=== PATIENT | male | born 1950 | race Caucasian/White ===

== ENCOUNTER 2025-03-04 09:29 | Outpatient (AMB) | payer MEDICARE, SELFPAY ==
--- OUTSIDE RECORDS SUMMARY | 2025-02-27 23:59 | XMS_ITS | Continuity of Care Document ---
Author Organization [facility] Address [address] [place] [address]- Care Team Providers Care Workforce Staffing Advisor Name Role Phone Arturo ABARCA, Justin Hannah Primary Care Physician [place] [facility] [place] 02/27/25 [facility] [address] [place] [address]- Attending Physician: Franny Manley Encounter Type: Pre Office Visit Allergies, Adverse Reactions, Alerts No Known Allergies Immunizations Given and Recorded Vaccine Date Status Refusal Reason SARS-CoV-2(COVID-19)mRNA-LNP vac([id number]) 05/02/23 Recorded [id number] bivalent booster vax 03/31/22 Recorded SARS-CoV-2 (COVID-19) mRNA-1273 vaccine 05/14/21 R ecorded SARS-CoV-2 (COVID-19) mRNA-1273 vaccine 09/27/20 R ecorded SARS-CoV-2 (COVID-19) mRNA-1273 vaccine 08/30/20 R ecorded Medications Albuterol (Eqv-ProAir HFA) 90 mcg/inh inhalation aerosol INHALE 2 PUFFS INTO THE LUNGS EVERY 4 HOURS NEEDED Start Date: 11/23/23 Status: Ordered Repeat number: 1 Eliquis 5 mg oral tablet 1 tablet, By Mouth, 2 times a day, # 180 tablet, 3 Refills, Maintenance, 09/09/24 4:19:00 PM EST, [id number], 180.34, cm, 07/25/24 14:02:00 EST, Height, 94, kg, 02/09/24 7:50:00 EDT, Dry Weight Start Date: 09/09/24 Status: Ordered Quantity: 180.0 Unit: tablet Repeat number: 1 Farxiga 10 mg oral tablet 1 tablet, By Mouth, Daily, # 90 tablet, 2 Refills, Maintenance, 11/11/24 8:38:00 AM EDT, [id number], 180.34, cm, 07/25/24 14:02:00 EST, Height, 94, kg, 02/09/24 7:50:00 EDT, Dry Weight Start Date: 11/11/24 Status: Ordered Quantity: 90.0 Unit: tablet Repeat number: 1 glucosamine 750 mg oral tablet 2 tablet = 1,500 mg, By Mouth, Daily, # 180 tablet, 0 Refills, Maintenance, 01/10/24 12:09:00 PM EDT, Tablet, Partial fill upon patient request if the prescription is for a schedule II opioid drug. Start Date: 01/10/24 Status: Ordered Quantity: 180.0 Unit: tablet Repeat number: 1 losartan 100 mg oral tablet 1 tablet = 100 mg, By Mouth, Daily, # 30 tablet, 0 Refills, Maintenance, 02/13/24 2:27:00 PM EDT, Tablet, Partial fill upon patient request if the prescription is for a schedule II opioid drug. Start Date: 02/13/24 Status: Ordered Quantity: 30.0 Unit: tablet Repeat number: 1 pantoprazole 40 mg oral delayed release tablet TAKE 1 TABLET TWICE A DAY BY ORAL ROUTE FOR 90 DAYS. Start Date: 01/03/24 Status: Ordered Repeat number: 1 spironolactone 25 mg oral tablet 0.5, tablet, By Mouth, Daily, # 45 tablet, Refills 10, Maintenance, 11/04/24 11:21:00 AM EDT, Route to Pharmacy Electronically, [id number], 180.34, cm, 07/25/24 14:02:00 EST, Height, 94, kg, 02/09/24 7:50:00 EDT, Dry Weight Start Date: 11/04/24 Status: Ordered Quantity: 45.0 Unit: tablet Repeat number: 1 tamsulosin 0.4 mg oral capsule 0.4 mg, 1, capsule, By Mouth, Daily, # 30 capsule, Refills 0, Maintenance, 03/24/22 1:36:00 PM EDT, Partial fill upon patient request if the prescription is for a schedule II opioid drug. Start Date: 03/24/22 Status: Ordered Quantity: 30.0 Unit: capsule Repeat number: 1 Tylenol 8 HR Arthritis Pain 650 mg oral tablet, extended release 2 tablet = 1,300 mg, By Mouth, Every 8 hours, PRN as needed for pain, # 50 tablet, 0 Refills, Maintenance, 01/10/24 12:10:00 PM EDT, ER Tablet, Partial fill upon patient request if the prescription isfor a schedule II opioid drug. Start Date: 01/10/24 Status: Ordered Quantity: 50.0 Unit: tablet Repeat number: 1 Problem List Condition Confirmation Course Effective Dates Status Health St atus Informant Atrial fibrillation with RVR Confirmed Active Maldonado esophagus Confirmed Active Chronic low back pain Confirmed Active Chronic systolic congestive heart failure Confirmed Active Primary hypertension Confirmed Active GERD (gastroesophageal reflux disease) Confirmed Active Urinary frequency Confirmed Active SVT (supraventricular tachycardia) Confirmed Active Tear of medial meniscus of left knee Confirmed Active Social History Social History Type Response Smoking Status Never (less than 100 in lifetime) entered on: 12/12/23 Sex Sex Representation Male (finding) Patient Care team information Care Team Personnel Name: Pauline Mora RN Position: [facility] RN Member Role: Primary Care Nurse Name: Luann Aguilar RN Position: [facility] RN Member Role: Primary Care Nurse Name: Daysi Moody RN Position: [facility] RN Member Role: Primary Care Nurse Name: Justin Morris MD Position: [facility] Outreach Member Role: PCP Address: [address] [place] [address] Telecom: Name: Monique Giron NP Position: [facility] Associate Professional Member Role: Lifetime Consulting Provider Address: [address] [place], [place] [address] [address] Telecom: Name: Florentin Mclain MD Position: [facility] Renal MD Member Role: Lifetime Consulting Physician Address: [address] [place], [place] [address] [facility] [address] Telecom: Name: Kay Mckeon RN Position: [facility] RN Member Role: Primary Care Nurse Name: Steffi Sarabia RN Position: [facility] RN Member Role: Primary Care Nurse Name: Yusuf Kimball DO Position: [facility] Renal MD Member Role: Lifetime Consulting Physician Address: [address] [place], [place] [address]E [facility] [place] [address]- Telecom: Name: Delores Garcia RN Position: [facility] RN Member Role: Primary Care Nurse Name: Ana Delarosa RN Position: [facility] RN Member Role: Primary Care Nurse Name: Krista Snyder RN Position: [facility] RN Member Role: Primary Care Nurse Name: Christine Ricketts RN Position: [facility] RN Member Role: Primary Care Nurse Name: Enrico Brwon RN Position: [facility] RN Member Role: Primary Care Nurse Name: Luis Reyes RN Position: [facility] RN Member Role: Primary Care Nurse Name: Janessa Oh RN Position: [facility] DARWIN RN W/OE and Tasks Member Role: Primary Care Nurse Care Team Related Persons Name: MARC TILLMAN Name: MARC ALMARAZ Insurance Providers Guarantor name: JENSEN OSWALD Health Plan Information #: 1 Payer: MEDICARE B Payer Identifier: ISHAAN Member Number: [id number] Group Number: Subscriber Identifier: [id number] Relationship to Subscriber: self Coverage Type: NA Coverage Verification Date: Telecom: Address: [facility] Information #: 2 Payer: [employer] Payer Identifier: ISHAAN Member Number: [id number] Group Number: Subscriber Identifier: [id number] Relationship to Subscriber: self Coverage Type: Medicare Managed Care (Includes Medicare Advantage Plans) Coverage Verification Date: Telecom: Address:
--- NOTE | 2025-03-04 09:31 | A.OFFVIS_ITS ---
Vital Signs 03/04/25 09:33 Height 5 ft 10.5 in Weight 216 lb 8 oz BMI 30.6 BP 132/84 Blood Pressure Location Lt brachial Position Sitting Pulse 64 Pulse Source Pulse Oximeter Pulse Oximetry (%) 94 Oxygen Delivery Method Room Air Intake Visit Reasons: chronic cough Allergies No Known Allergies Allergy (Verified 03/04/25 09:36) HPI HPI chronic cough: Details: Zia is a pleasant 75 year old male, never smoker, with underlying CHF, Afib on Eliquis, GERD and SVT. He was referred by PCP for pulmonary evaluation for chronic cough and associated respiratory symptoms. The cough has been a persistent issue, particularly during the winter months when the patient experiences increased phlegm production and postnasal drip. Often resulting in sinusitis and bronchitis. The symptoms tend to resolve in the spring and summer, often requiring abx and steroids. At this time he denies any respiratory symptoms other than intermittent dyspnea which he attributes to cardiac etiologies. CXR 11/2024 revealed low lung volumes otherwise unremarkable. The patient has been managing the symptoms with antihistamines and nasal spray, which have provided some relief. He is scheduled to see an ENT specialist for a procedure to address his narrow eustachian tubes, which may contribute to his prolonged respiratory symptoms during colds. The patient also has a history of atrial fibrillation, for which he is on Eliquis and has undergone ablation therapy. He is scheduled for another ablation in three weeks due to recurrent episodes of atrial fibrillation. The patient reports a history of allergic rhinitis, particularly sensitive to leaf mold, which exacerbates his symptoms in the fall. He has not undergone recent allergy testing. The patient has a history of gastroesophageal reflux disease, managed with pantoprazole, which is well- controlled. He also has lumbar spinal stenosis, which limits his physical activity and is scheduled for a mild procedure next week. He denies h/o asthma/COPD. 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 [facility] Social History (Updated 03/04/25 @ 09:36 by Kaelyn Brandon [facility]) Patient Tobacco Use Status: Never used Tobacco Review of Systems Const Denies chills, Denies excessive sweating, Denies fever(s), Denies headache(s) and Denies night sweats Eyes Denies dry eyes, Denies irritation and Denies itchy eyes ENT Reports Normal hearing present, Denies headache(s), Denies nasal congestion, Denies nasal discharge, Denies post nasal drip and Denies sore throat Card Denies chest pain, Denies chest pain at rest, Denies chest pain with activity, Denies claudication, Denies leg edema, Denies dyspnea, Denies dyspnea on exertion, Denies orthopnea and Denies paroxysmal nocturnal dyspnea Resp Denies chest congestion, Denies cough, Denies excessive phlegm production, Denies pain on inspiration, Denies pain with cough, Denies dyspnea, Denies dyspnea on exertion, Denies stridor and Denies wheezing Musc Denies myalgias Neuro Reports Normal hearing present and Denies headache(s) Endo Denies excessive sweating Zi/Lymph Denies lymphadenopathy Aller/Immun Denies itchy eyes, Denies seasonal rhinorrhea and Denies wheezing Physical Exam Vital Signs: Last Vital Signs Pulse 64 03/04/25 09:33 BP 132/84 03/04/25 09:33 Pulse Ox 94 03/04/25 09:33 Oxygen Delivery Method Room Air 03/04/25 09:33 BMI result Body Mass Index 30.6 Const General: cooperative, healthy appearing, comfortable, no acute distress, well developed and alert Nutritional Appearance: obese Orientation/consciousness: patient oriented x3 Limitations: no limitations HEENT Head: Yes normal to inspection, Yes normocephalic and Yes atraumatic Ears: hearing grossly normal bilaterally and external ears normal Eyes General: appearance normal, both eyes and all related structures Eyelids: Yes eyelids normal Sclerae: sclerae normal EOM: EOMs intact bilaterally Neck Neck: Yes normal visual inspection and Yes no lymphadenopathy Lymphatic: no lymphadenopathy noted Chest Chest palpation & inspection: normal inspection of the chest Resp Effort & Inspection: normal respiratory effort, able to speak in complete sentences, no audible wheezes, no cough, no stridor, not tachypneic, no tripod positioning and no use of accessory muscles Auscultation: clear to auscultation bilaterally Cardio Jugular venous distension: no JVD Rate: regular rate Skin Other: warm, dry General skin exam: no rashes or lesions noted Neuro General: patient oriented x3 Cranial nerves: Yes Normal hearing present Cognition (Neuro): normal cognition Gait exam (Neuro): Normal gait present Extrem General: Yes normal to inspection, Yes capillary refill normal, Yes no clubbing, cyanosis or edema and Yes no pedal edema Psych Appearance: grossly normal and well kempt Speech and movement: Normal speech and movement present and Clear speech present Affect: normal affect Attitude: cooperative Thought process: Normal thought process present Thought content: Normal thought content present Insight: Good insight present (Psych) Judgement: Good judgement present (Psych) Assessment & Plan Assessment & Plan (1) Chronic cough: Code(s): R05.3 - Chronic cough Category: Medical (2) Allergic rhinitis: Code(s): J30.9 - Allergic rhinitis, unspecified Category: Medical Plan The plan includes scheduling a pulmonary function test to assess for possible as thma or reactive airway disease. The patient is advised to continue using antihistamines and nasal spray to manage symptoms and to follow up with the ENT. All questions were answered and patient is in agreement of plan. Will follow up in 6-8 weeks or sooner if needed. Orders: Orders PFT pulmonary function test Today R05.3 - Chronic cough Coding Level of Care Code New Pt Level 4 (21068) Diagnoses Chronic cough R05.3 Allergic rhinitis J30.9
[2025-03-04 09:33] VITALS: BP 132/84; PULSE 64; O2SAT 94; BMI 30.6
--- OUTSIDE RECORDS SUMMARY | 2025-03-04 10:33 | XMS_ITS | Encounter Summary ---
Author Organization [facility] Address [address] [place] [address] Care Team Providers Care Fire Prevention Specialist Name Role Phone Justin Morris MD Primary Care Provider [phone] Diogenes Cai MD Unavailable [phone] Encounter Details Date Type Department Care Team (Late st Contact Info) Description 02/27/2025 Scanned Document [facility] [address] [place] [address] Jevon Vo MD [address] [place] [address] Social History Tobacco Use Types Packs/Day Years Used Date Smoking Tobacco: Never Passive Smoke Exposure: Never Smokeless Tobacco: Never Alcohol Use Standard Drinks/Week Comments Yes 0 (1 standard drink = 0.6 oz pur e alcohol) Sex and Gender Information Value Date Recorded Sex Assigned at Not on file Legal Sex Male 4:00 PM EDT Gender Identity Not on file Sexual Orientation Not on file documented as of this encounter Plan of Treatment Upcoming Encounters Date Type Department Care Team (Late st Contact Info) Description 03/05/2025 1:45 PM EDT Procedure visit [facility] [address] [facility] [place] [address] Jevon Vo MD [address] [place] [address] 03/27/2025 10:45 AM EDT Office Visit [facility] [place] [address] [facility] [place] [address] Jevon Vo MD [address] [place] [address] documented as of this encounter Visit Diagnoses Not on filedocumented in this encounter Care Teams Fire Prevention Specialist Relationship Specialty Start Date End Date Justin Morris MD [address] [address] PCP - General Internal Medicine 06/25/24 Diogenes Cai MD [address] [facility] [address] [place] [address] Internal Medicine 02/21/25 documented as of this encounter
--- OUTSIDE RECORDS SUMMARY | 2025-03-04 10:33 | XMS_ITS | Clinical Summary ---
Author Organization [facility] Address [address] [place] [address] Care Team Providers Care Disaster Recovery Analyst Name Role Phone Justin Mroris MD Primary Care Provider [phone] Allergies No known active allergies Medications celecoxib (CeleBREX) 200 mg capsule Take 200 mg by mouth 1 (one) time each day. Active tamsulosin (FLOMAX) 0.4 mg 24 hr capsule Take 0.4 mg by mouth 1 (one) time each day. 12/23/2019 Active losartan (COZAAR) 100 mg tablet Take 100 mg by mouth 1 (one) time each day. Active Active Problems Problem Noted Date Diagnosed Date SBO (small bowel obstruction) 02/18/2020 Family History Medical History Relation Name Comments Alcohol abuse Father Aortic aneurysm Father Heart failure Mother Relation Name Status Comments Father Mother Social History Tobacco Use Types Packs/Day Years Used Date Smoking Tobacco: Never Smokeless Tobacco: Never Alcohol Use Standard Drinks/Week Comments Yes 0 (1 standard drink = 0.6 oz pure alcohol) drinks 1 vodka soda and 1 glass of wine a night AUDIT-C Answer Date Recorded Q1: How often do you have a drink containing alcohol? 4 or more times a week 02/19/2020 Average Number of Drinks Not on file 020 Frequency of Binge Drinking Not on file 11/2019 Sex and Gender Information Value Date Recorded Sex Assigned at Not on file Legal Sex Male 5:57 PM EDT Gender Identity Not on file Sexual Orientation Not on file Last Filed Vital Signs Vital Sign Reading Time Taken Comments Blood Pressure 124/58 02/21/2020 7:29 AM EDT Pulse 62 02/21/2020 7:29 AM EDT Temperature 37.3 C (99.2 F) 02/21/2020 7:29 AM EDT Respiratory Rate 14 02/21/2020 7:29 AM EDT Oxygen Saturation 96% 02/21/2020 7:29 AM EDT Inhaled Oxygen Concentration - - Weight 95.3 kg (210 lb 1.6 oz) 02/21/2020 5:00 A M EDT Height 182.9 cm (6') 02/18/2020 7:47 PM EDT Body Mass Index 28.49 02/18/2020 7:47 PM EDT Plan of Treatment Health Maintenance Due Date Last Done Comments CT Colonography 1950 Colonoscopy 1950 Colorectal Cancer Screening 1950 FIT-DNA 1950 FIT 1950 FOBT 1950 Sigmoidoscopy 1950 Medicare Annual Wellness Visit 02/21/1968 Tdap and Td Vaccines Adult 1969 Pneumococcal Vaccine: 50+ Years (1 of 1 - PCV) 02/21/2000 Zoster Vaccines (1 of 2) 02/21/2000 Fall Risk Screening 2015 COVID-19 Vaccine ( season) 2024 05/02/2023, 05/14/2021, 09/27/2020, Additional history exists RSV 60+ (1 - 1-dose 75+ series) 2025 Influenza Vaccine (#1) 2025 HIB Vaccines Aged Out No longer eligi ble based on patient's age to complete this topic HPV Vaccines (No Doses Required) Completed Hepatitis A Vaccines Aged Out No long er eligible based on patient's age to complete this topic IPV Vaccines Aged Out No longer eligi ble based on patient's age to complete this topic Meningococcal Vaccine Aged Out No chema vern eligible based on patient's age to complete this topic RSV <20 Months Aged Out No longer vinnie gible based on patient's age to complete this topic Insurance MEDICARE [employer] Care Teams Disaster Recovery Analyst Relationship Specialty Start Date End Date Justin Morris MD [address] [address] PCP - General 02/18/20
--- OUTSIDE RECORDS SUMMARY | 2025-03-04 10:33 | XMS_ITS ---
Author Name [facility] Organization Unknown History of Medication Use Medication Directions Dispensed Refills Start Date End Date Stat us doxycycline (VIBRAMYCIN) 100 MG capsule Take 1 capsule (100 mg total) by mouth 2 (two) times a day. 11/13/2024 active proMETHAZINE-dextrom ethorphan (proMETHAZINE-DM) 6.25-15 MG/5ML syrup Take 5 mL by mouth 4 times daily (every 6 hours) as needed for cough. 11/13/2024 active doxycycline (ADOXA) 100 MG tablet Take 1 tablet (100 mg total) by mouth every 12 (twelve) hours around the clock. 06/25/2024 07/10/2024 active Farxiga 10 MG tablet Take 10 mg by mouth. active losartan (COZAAR) 100 MG tablet Take 100 mg by mouth. active PANTOprazole (PROTONIX) 40 MG EC tablet TAKE 1 TABLET TWICE A DAY BY ORAL ROUTE FOR 90 DAYS. active Problems Problem Status Onset Date Problem Type Date of Resoluti on Source GERD (gastroesophageal reflux disease) active 2024-06-25 [facility]Act [facility] SVT (supraventricular tachycardia) active 2024-06-25 ProblemAct [facility] SBO (small bowel obstruction) active 2020-02-18 ProblemAct [facility] Atrial fibrillation with RVR active 2024-06-25 ProblemAct [facility] Tear of medial meniscus of left knee active 2024-06-25 ProblemAct [facility] Increased frequency of urination active 2024-06-25 ProblemAct [facility] Hypertension active 2024-06-25 ProblemAct [facility] Chronic low back pain active 2024-06-25 ProblemAct [facility] Maldonado esophagus active 2024-06-25 ProblemAct [facility] Encounters Encounter Type Encounter Reason Primary Diagnosis Location Date Ambulatory Ear Fullness Ear Fullness [facility] 12/30/2024 Ambulatory Cough Cough [facility] 11/13/2024 Ambulatory Post Nasal Drip [facility] 08/08/2024 Ambulatory Post Nasal Drip [facility] 06/25/2024 Care Team Organization Name Specialty Phone Email Start Date End Da te [facility] Primary Care 11/14/202401/14 [facility] 06/28/2024 01/28/2025 [facility] 06/25/2024 [facility] 06/03/2024
--- OUTSIDE RECORDS SUMMARY | 2025-03-04 10:33 | XMS_ITS | Clinical Summary ---
Author Organization [place] [address] [place] [address] Address [address] [facility] [place] [address] Care Team Providers Care Hand Icer Name Role Phone Unavailable Primary Care Provider Unavailabl e Allergies No known active allergies Medications pantoprazole (PROTONIX) 40 mg tablet TAKE 1 TABLET TWICE A DAY BY ORAL ROUTE FOR 90 DAYS. 01/03/2024 Active losartan (COZAAR) 100 mg tablet Take 1 tablet (100 mg total) by mouth daily. Active FARXIGA 10 mg tablet Take 1 tablet (10 mg total) by mouth daily. Active amiodarone (PACERONE) 200 mg tablet Take 1 tablet (200 mg total) by mouth. 01/15/2024 Active acetaminophen (TYLENOL ARTHRITIS PAIN) 650 mg CR tablet Take 2 tablets (1,300 mg total) by mouth. 01/10/2024 Active ELIQUIS 5 mg Tab tablet Take 1 tablet (5 mg total) by mouth 2 (two) times daily. Active fluticasone propionate (FLONASE) 50 mcg/actuation nasal sprayIndications :Acute non-recurrent sinusitis, unspecified location Use 1 spray in each nostril daily. 16 g 11 02/19/2024 Active Social History Tobacco Use Types Packs/Day Years Used Date Smoking Tobacco: Never Smokeless Tobacco: Never Tobacco Cessation:Counseling Given: Not Answered Alcohol Use Standard Drinks/Week Comments Yes 0 (1 standard drink = 0.6 oz pur e alcohol) socially Sex and Gender Information Value Date Recorded Sex Assigned at Not on file Legal Sex Male 3:29 PM EDT Gender Identity Not on file Sexual Orientation Not on file Last Filed Vital Signs Vital Sign Reading Time Taken Comments Blood Pressure 128/84 02/19/2024 4:07 PM EDT Pulse 87 02/19/2024 4:07 PM EDT Temperature 36.9 C (98.4 F) 02/19/2024 4:07 PM EDT Respiratory Rate - - Oxygen Saturation 96% 02/19/2024 4:07 PM EDT Inhaled Oxygen Concentration - - Weight 93 kg (205 lb) 02/19/2024 4:07 PM EDT Height - - Body Mass Index - - Plan of Treatment Health Maintenance Due Date Last Done Comments HIV screening 1963 Hepatitis C screening 02/21/1968 Tetanus adult (Td q 10,TDAP once) 1970 Lipid disorder screening 1990 Colon cancer screening, Colonoscopy 1995 Diabetes screening 1995 Pneumococcal Vaccine (50+ years) (1 of 1 - PCV) 02/21/2000 Shingles vaccine (Shingrix) (1 of 2 - Shingrix (RZV) 2 Dose Standard Series) 02/21/2000 Covid-19 vaccine series ( season) 2024 05/02/2023, 05/14/2021, 09/27/2020, Additional history exists RSV Immunization (1 - 1-dose 75+ series) 2025 Influenza vaccine 03/17/2025 Meningococcal Vaccine Aged Out No chema vern eligible based on patient's age to complete this topic Insurance [facility] MEDICARE COMMERCIAL GENERIC [facility] MEDICARE COMMERCIAL GENERIC [facility] MED[facility] COMMERCIAL GENERIC
--- OUTSIDE RECORDS SUMMARY | 2025-03-04 10:33 | XMS_ITS | Clinical Summary ---
Author Organization [facility] Facility Address [address] [address] Care Team Providers Care Afterschool Babysitter Name Role Phone Unavailable Primary Care Provider Unavailabl e Social History Tobacco Use Types Packs/Day Years Used Date Smoking Tobacco: Never Assessed Sex and Gender Information Value Date Recorded Sex Assigned at Not on file Legal Sex Male 5:21 PM EST Gender Identity Not on file Sexual Orientation Not on file Plan of Treatment Health Maintenance Due Date Last Done Comments Colorectal Cancer Screening: Annual FOBT 1999 Colorectal Cancer Screening: Colonoscopy 1999 Colorectal Cancer Screening: Sigmoidoscopy 1999 Influenza Vaccine (#1) 2025 , 03/17/2020, 05/02/2019, Additional history exists Pneumococcal Vaccine: 50+ Years Completed 01/25/2017, 06/15/2015 Pneumococcal Vaccine: Peds (0 to 5 Years) and At-Risk Patients (6 to 49 Years) Discontinued 01/25/2017, 06/15/2015 Hepatitis B Vaccine Aged Out No longe r eligible based on patient's age to complete this topic Insurance Medicare [facility]
== END 2025-03-04 10:04 | disposition home or self-care (01) ==
LOC: HO.HPSW 09:30
PROVIDERS: Family Provider Internal Medicine; PCP Internal Medicine; Visit Provider Nurse Practitioner Family
DX: R05.3 Chronic cough (principal); J30.9 Allergic rhinitis, unspecified
CPT/HCPCS: 99204

== ENCOUNTER → 2025-03-04 09:29 | Outpatient (BNVA) | payer MEDICARE, SELFPAY | PROVIDERS: Family Provider Internal Medicine; PCP Internal Medicine; Visit Provider Nurse Practitioner Family | DX: R05.3 Chronic cough (principal); J30.9 Allergic rhinitis, unspecified | CPT/HCPCS: 99202 ==

== ENCOUNTER 2025-05-15 10:37 | Outpatient (REF) | payer MEDICARE, SELFPAY ==
--- NOTE | 2025-05-15 10:49 | PFT_ITS ---
Flows: FEV1: 90 % of predicted at 2.73 L FVC: 107 % of predicted at 4.33 L FEV1/FVC: 63 % Bronchodilator response: Absent Volumes: Total lung capacity: 85 % of predicted at 6.04 L Residual volume: 61 % of predicted at 1.62 L Slow vital capacity: 103 % of predicted at 4.42 L Expiratory reserve volume: 36 % of predicted at 0.45 L Diffusion capacity: Normal Impression: No obstructive or restrictive ventilatory defect. No bronchodilator response. Decreased expiratory reserve volume suggests extrathoracic restriction likely secondary to abdominal obesity. MTDD
[2025-05-15 11:36] VITALS: PULSE 82
--- OUTSIDE RECORDS SUMMARY | 2025-05-15 13:04 | XMS_ITS | Encounter Summary ---
Author Organization [facility] Address [address] [place] [address] Care Team Providers Care Tool And Die Supervisor Name Role Phone Justin Morris MD Primary Care Provider [phone] Encounter Details Date Type Department Care Team (Late st Contact Info) Description 02/18/2020 Procedure Pass [facility] Radiology, [facility] ([place] Scan) [address] [place] [address] Social History Tobacco Use Types Packs/Day Years Used Date Smoking Tobacco: Never Smokeless Tobacco: Never AUDIT-C Answer Date Recorded Q1: How often [...] on file Sexual Orientation Not on file COVID-19 Exposure Response Date Recorded In the last month, have you been in contact with someone who was confirmed or suspected to have Coronavirus / COVID-19? No / Unsure 02/18/2020 5:57 PM EDT documented as of this encounter Last Filed Vital Signs Vital Sign Reading Time Taken Comments Blood Pressure - - Pulse - - Temperature - - Respiratory Rate - - Oxygen Saturation - - Inhaled Oxygen Concentration - - Weight 95.3 kg (210 lb) 02/18/2020 7:47 PM EDT Height 182.9 cm (6') 02/18/2020 7:47 PM EDT Body Mass Index 28.48 02/18/2020 7:47 PM EDT documented in this encounter Functional Status documented as of this encounter Plan of Treatment Not on file documented as of this encounter Visit Diagnoses Not on filedocumented in this encounter Care Teams Tool And Die Supervisor Relationship Specialty Start Date End Date Justin Morris MD [address] [address] PCP - General 02/18/20 documented as of this encounter
--- OUTSIDE RECORDS SUMMARY | 2025-05-15 13:04 | XMS_ITS | Clinical Summary ---
Author Organization [employer] Address [address] [place] [address] Care Team Providers Care Web Development Intern Name Role Phone Justin Morris MD Primary Care Provider [phone] Allergies No known active allergies Medications celecoxib [...] of 2) 02/21/2000 Fall Risk Screening 2015 RSV 60+ (1 - 1-dose 75+ series) 2025 COVID-19 Vaccine ( season) 2025 05/02/2023, 05/14/2021, 09/27/2020, Additional history exists Influenza Vaccine (#1) 2025 HIB Vaccines Aged [...] Insurance MEDICARE [facility] Care Teams Web Development Intern Relationship Specialty Start Date End Date Justin Morris MD [address] [address] PCP - General 02/18/20
--- OUTSIDE RECORDS SUMMARY | 2025-05-15 13:04 | XMS_ITS | Clinical Summary ---
Author Organization [place] [address] [place] [address] [place] [address] [place] [address] Care Team Providers Care Wheat Shipper Name Role Phone Unavailable Primary Care Provider [...] Shingrix (RZV) 2 Dose Standard Series) 02/21/2000 Influenza vaccine 02/14/2025 RSV Immunization (1 - 1-dose 75+ series) 2025 Covid-19 vaccine series ( season) 2025 05/02/2023, 05/14/2021, 09/27/2020, Additional history exists Meningococcal B Vaccine Aged Out No l onger eligible based on patient's age to complete this topic Meningococcal Vaccine Aged Out No chema vern eligible based on patient's age to complete this topic Insurance [facility] MEDICARE COMMERCIAL GENERIC [facility] MEDICARE COMMERCIAL GENERIC [facility] MEDICARE COMMERCIAL GENERIC
--- OUTSIDE RECORDS SUMMARY | 2025-05-15 13:04 | XMS_ITS | Clinical Summary ---
Author Organization [facility] Facility Address [address] [address] Care Team Providers Care Manager Business Development Hospice Name Role Phone Unavailable Primary Care Provider [...] age to complete this topic Insurance Medicare [facility]
--- OUTSIDE RECORDS SUMMARY | 2025-05-15 13:05 | XMS_ITS | Clinical Summary ---
Author Organization [facility] Address [address] [place] [address] Care Team Providers Care Practice Architect Name Role Phone Justin Morris MD Primary Care Provider [phone] Diogenes Cai MD Unavailable [phone] Allergies Active Allergy Reactions Criticality Noted Date Comments Amlodipine Other (See Comments) Low 03/27/2025 Medications acetaminophen (TYLENOL) 650 MG CR tablet Take 1,300 mg by mouth. 4 Active amiODARONE (PACERONE) 200 MG tablet Take 200 mg by mouth. 4 Active amLODIPine (NORVASC) 2.5 MG tablet Take 2.5 mg by mouth. Active Eliquis 5 MG tablet Take 5 mg by mouth 2 times a day. Active celeCOXIB (CeleBREX) 200 MG capsule Take 200 mg by mouth. Active Farxiga 10 MG tablet Take 10 mg by mouth. Active fluticasone (FloNASE) 50 mcg/spray nasal spray SPRAY 2 SPRAYS BY INTRANASAL ROUTE EVERY DAY DIRECTED Active losartan (COZAAR) 100 MG tablet Take 100 mg by mouth. Active oxyCODONE (ROXICODONE) 5 MG immediate release tablet Take 5 mg by mouth every 4 (four) hours. 4 Active PANTOprazole (PROTONIX) 40 MG EC tablet TAKE 1 TABLET TWICE A DAY BY ORAL ROUTE FOR 90 DAYS. Active SPIRONOLACTONE PO Take by mouth. 4 Active tamsulosin (FLOMAX) 0.4 MG capsule Take by mouth. 4 Active proMETHAZINE-de xtromethorphan (proMETHAZINE-D M) 6.25-15 MG/5ML syrupIndication s:Acute bacterial bronchitis Take 5 mL by mouth 4 times daily (every 6 hours) as needed for cough. 120 mL 5 Active ipratropium (ATROVENT) 0.03 % nasal sprayIndication s:Post-nasal drip SPRAY 2 SPRAYS INTO EACH NOSTRIL 3 TIMES A DAY. 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 Chronic low back pain 06/25/2024 GERD (gastroesophageal reflux disease) Hypertension 06/25/2024 Increased frequency of urination 06/25/2024 SVT (supraventricular tachycardia) 06/25/2024 Tear of medial meniscus of left knee 06/25/2024 SBO (small bowel obstruction) 02/18/2020 Encounters Date Type Department Care Team Description 03/30/2025 Refill [facility] [address] [address] Jevon Vo MD Post-nasal drip 03/27/2025 10:45 AM EDT Office Visit [facility] [address] [address] Jevon Vo MD Other abnormal auditory perceptions, right ear (Primary Dx); Dysfunction of left eustachian tube; Mixed conductive and sensorineural hearing loss of left ear with restricted hearing of right ear 03/05/2025 1:45 PM EDT Procedure visit [facility] [address] [address] Jevon Vo MD Dysfunction of left eustachian tube (Primary Dx); Mixed conductive and sensorineural hearing loss of left ear with restricted hearing of right ear 02/28/2025 Scanned Document [facility] [address] [place] [address] Jevon Vo MD 02/27/2025 Scanned Document [facility] [address] [place] [address] Jevon Vo MD from Last 3 Months Family History Medical History Relation Name Comments Cancer Maternal Uncle Autoimmune disease Mother Heart disease Mother Cancer Sister Relation Name Status Comments Maternal Uncle Mother Sister Social History Tobacco Use Types Packs/Day Years Used Date Smoking Tobacco: Never Passive Smoke Exposure: Never Smokeless Tobacco: Never Tobacco Cessation:Counseling Given: [...] Sign Reading Time Taken Comments Blood Pressure 124/82 11/13/2024 10:13 AM EDT Pulse 71 11/13/2024 10:13 AM EDT Temperature 36.9 C (98.4 F) 11/13/2024 10:13 AM EDT Respiratory Rate 18 11/13/2024 10:13 AM EDT Oxygen Saturation 96% 11/13/2024 10:13 AM EDT Inhaled Oxygen Concentration - - Weight 95.3 kg (210 lb) 03/27/2025 10:44 AM EDT Height 177.8 cm (5' 10 ) 03/27/2025 10:44 AM EDT Body Mass Index 30.13 03/27/2025 10:44 AM EDT Plan of Treatment Upcoming Encounters Date Type Department Care Team (Late st Contact Info) Description 07/29/2025 10:45 AM EST Office Visit [facility] [address] [place] [address] Jevon Vo MD [address] [place] [address] Health Maintenance Due Date Last Done Comments Advance Care Planning 1950 Hepatitis C Virus Screening 1950 DTaP/Tdap/Td Vaccines (1 - Tdap) 1969 Colonoscopy 1995 Pneumococcal Vaccines 50+ (1 of 1 - PCV) 02/21/2000 Zoster (Shingles) Vaccine (1 of 2) 02/21/2000 Influenza Vaccine 02/14/2025 08/09/2024, , 03/31/2022, Additional history exists RSV Vaccine 50 years and older and Patients (1 - 1-dose 75+ series) 2025 COVID-19 Vaccine ( season) 2025 05/02/2023, 03/31/2022, 05/14/2021, Additional history exists Hepatitis B Vaccines Aged Out No long er eligible based on patient's age to complete this topic Insurance MEDICARE PART A & B [facility] SUPPLEMENT ONLY [facility] SUPPLEMENT ONLY MEDICARE PART A & B Care Teams Practice Architect Relationship Specialty Start Date End Date Justin Morris MD [address] [place] [address] PCP - General Internal Medicine 06/25/24 [place] [address] [place] [id number] Internal Medicine 02/21/25
--- OUTSIDE RECORDS SUMMARY | 2025-05-15 13:05 | XMS_ITS | Encounter Summary ---
Author Organization [facility] Address [address] [place] [address] Care Team Providers Care Brineyard Supervisor Name Role Phone Justin Morris MD Primary Care Provider [phone] Diogenes Cai MD Unavailable [phone] Encounter Details Date Type Department Care Team (Late st Contact Info) Description 02/27/2025 Scanned Document [facility] [address] [place] [address] Jevon Vo MD [address] [place] [address] Social History Tobacco Use Types Packs/Day [...] Description 07/29/2025 10:45 AM EST Office Visit [facility] [address] [facility], [place] [address] Jevon Vo MD [address] [place] [address] documented as of this encounter Visit Diagnoses Not on filedocumented in this encounter Care Teams Brineyard Supervisor Relationship Specialty Start Date End Date Justin Morris MD [address] [facility] [address] [place] [address] PCP - General Internal Medicine 06/25/24 Diogenes Cai MD [address] [facility] [address] [place] [address] Internal Medicine 02/21/25 documented as of this encounter
--- OUTSIDE RECORDS SUMMARY | 2025-05-15 13:05 | XMS_ITS | Data Portability ---
Author Organization [facility], Main Office Address [address] [place] [address] Care Team Providers Care Horse Trekking Guide Name Role Phone PRAVEEN MORRIS Primary Care Provider [facility] ELIER HARRIS Orthopedic Surgeon [phone] SEPIDEH RAMAN Orthopedic Surgeon [phone] LORE HOLLINS Lithographed Plate Inspector [phone] [facility] Refractory Worker [facility] (CENTRALIZED ELECTRO ILENE ORDERING - ALL LOCATIONS) Urologist ZIA DICKINSON Urologist CLARENCE MUNIZ Referring Provider [phone] RAMON CHEEMA Referring Provider [facility] Laundry Aide [phone] [facility] Referring Pro vider ARTURO VO Referring Provider ELIER COFFEY Referring Provider Assessment Encounter Date Assessment Date Assessment LastModified by Organization Details LastModified Time 03/12/2024 03/12/2024 This service was provided using telemedicine. Patient consented to video & audio visit Patient was located in the [facility]. Provider was located in the office. No other persons participated in the telemedicine visit except for the patient unless otherwise indicated here. Total time of visit was 22 minutes. [email or web address] Not available 03/12/2024 15:52:38 Plan of Treatment Reminders Order Date Submit Date Provider Last Modified By Organization Details Last Modified Time Details Appointments [id number] 2025 11:00A M Praveen haas MD Not available Not available Not available Lab PSA, serum or plasma 2024 025 JANNETH [facility] (Centralized Electronic Ordering - All Locations), Patient Can Go To The Location Of Their Choice, 03/07/2025 06:07:56 lipid panel, serum 2024 025 JANNETH [facility] (Centralized Electronic Ordering - All Locations), Patient Can Go To The Location Of Their Choice, 03/07/2025 06:07:56 CBC w/ auto diff 2024 025 JANNETH [facility] (Centralized Electronic Ordering - All Locations), Patient Can Go To The Location Of Their Choice, 03/07/2025 06:07:55 CMP, serum or plasma 2024 025 JANNETH [facility] (Centralized Electronic Ordering - All Locations), Patient Can Go To The Location Of Their Choice, 03/07/2025 06:07:55 rapid SARS CoV 2 Ag, QL IA, respira tory specime n 2024 [email or web address] In-Office Order, Internal Use Only DO Not Attach Compendium DO Not Attach Compendium, Do Not Delete/merge, [id number] 12/05/2024 10:07:21 PSA, serum or plasma 2024 025 JANNETH [facility] (Centralized Electronic Ordering - All Locations), Patient Can Go To The Location Of Their Choice, 02/14/2025 03:11:09 CMP, serum or plasma 2024 025 JANNETH [facility] (Centralized Electronic Ordering - All Locations), Patient Can Go To The Location Of Their Choice, 02/14/2025 03:11:04 CBC w/ auto diff 2024 025 JANNETH [facility] (Centralized Electronic Ordering - All Locations), Patient Can Go To The Location Of Their Choice, 02/14/2025 03:11:05 lipid panel, serum 2024 025 JANNETH [facility] (Centralized Electronic Ordering - All Locations), Patient Can Go To The Location Of Their Choice, [id number] 02/14/2025 03:11:07 magnesi um, serum or plasma 2024 025 [facility] Patient Can Go To The Location Of Their Choice, [id number] 02/14/2025 03:11:[address] Referral physica l therapi st referra l - At risk for falling 2024 025 [email or web address] Not available 03/04/2025 14:45:47 Procedures None recorde d. Surgeries None recorde d. Imaging XR, chest, 2 view - Product krystin cough for 3 months; r/o infiltr ate. 2024 025 WICHITA In-Office Order, Internal Use Only DO Not Attach Compendium DO Not Attach Compendium, Do Not Delete/merge, [id number] 12/05/2024 16:26:21 Medication Orders prednis one 20 mg tablet 2024 025 [id number], [address], [place], [address], 12/19/2024 05:01:12 benzona fonseca 200 mg capsule 2024 025 [facility], [address], [place], [address], 12/22/2024 05:01:03 prednis one 20 mg tablet 2023 025 [facility], [address], [place], [address], 12/19/2024 05:01:12 flutica sone propion ate 50 mcg/act uation nasal spray,s uspensi on 2023 024 [email or web address] [facility]armacy #0517, [address], [place], [address], 12/05/2024 09:46:19 molnupi ravir 200 mg capsule (EUA) 2023 024 [facility] #4473, [address] [place], [address], 08/16/2024 11:03:46 albuter ol sulfate HFA 90 mcg/act uation aerosol inhaler 2023 024 [facility]44[facility], [address] [place], [address], 03/12/2024 16:04:24 Patient TargetsNo targets recorded. Patient Instructions Encounter Date Encounter Id Patient Instructions Last Modified By Organization Details Last Modified Time 03/12/2024 [id number] 10 things to do when you have covid-19 pmadden Not available 03/12/2024 16:04:22 COVID-19 FAQ pmadden Not available 16:04:21 10 things to do when you have covid-19 pmadden Not available 03/12/2024 16:04:22 Follow up if no improvement or if symptoms worsen. pmadden Not available 03/12/2024 16:05:34 08/16/2024 [id number] lumbar spinal stenosis: care instructions [email or web address] Not available 08/16/2024 11:25:07 high blood pressure: care instructions [email or web address] Not available 08/16/2024 11:20:52 learning about high blood pressure [email or web address] Not available 08/16/2024 11:20:52 heart failure: care instructions [email or web address] Not available 08/16/2024 11:22:17 learning about heart failure [email or web address] Not available 08/16/2024 11:22:17 03/04/2025 [id number] advance directives: care instructions [email or web address] Not available 03/04/2025 14:14:52 back care and preventing injuries: care instructions [email or web address] Not available 03/05/2025 08:52:27 getting back to normal after low back pain: care instructions [email or web address] Not available 03/05/2025 08:52:27 learning about relief for back pain [email or web address] Not available 03/05/2025 08:52:27 preventing falls : care instructions [email or web address] Not available 03/04/2025 14:13:10 well visit, over 65: care instructions [email or web address] Not available 03/04/2025 14:13:10 lumbar spinal stenosis: care instructions [email or web address] Not available 03/05/2025 08:52:27 rivers's esophagus: care instructions [email or web address] Not available 03/05/2025 08:52:27 taking direct or al anticoagulants safely: care instructions [email or web address] Not available 03/04/2025 14:13:10 high blood pressure: care instructions [email or web address] Not available 03/04/2025 14:13:10 learning about high blood pressure acennerazzo Not available 03/04/2025 14:13:10 chronic sinusiti s: care instructions [email or web address] Not available 03/05/2025 08:53:58 heart failure: care instructions [email or web address] Not available 03/05/2025 08:52:26 learning about heart failure [email or web address] Not available 03/05/2025 08:52:27 Reason for Referral Physical Therapist Referral for Adult health examination At risk for falling Referring Physician: Praveen Morris, Family Medicine, Encounter Date: 03/04/2025 Results Created Date Observation Date Name Description Value Unit Range Abnormal Flag Note LastModifiedBy Organization Detail LastModifiedTime 03/04/20 24 03/04/2024 CBC WITH DIFFE RENTI AL/PL ATELE T WBC 5.6 x10e3 /uL 3.4-10 .8 normal Not Available [facility] ([facility]) [address] [place], [address], 03/05/2024 08:09:25 03/04/20 24 03/04/2024 CBC WITH DIFFE RENTI AL/PL ATELE T RBC 4.97 x10e6 /uL 4.14-5 .80 normal Not Available [facility] ([facility]) [address] [place], [address], 03/05/2024 08:09:25 03/04/20 24 03/04/2024 CBC WITH DIFFE RENTI AL/PL ATELE T hemoglobin 16.2 g/dL 13.0-1 7.7 normal Not Available [facility] ([facility]) [address] [place], [address], 03/05/2024 08:09:25 03/04/20 24 03/04/2024 CBC WITH DIFFE RENTI AL/PL ATELE T hematocrit 48.0 % 37.5-5 1.0 normal Not Available [facility] ([facility]) [address] [place], [address], 03/05/2024 08:09:25 03/04/20 24 03/04/2024 CBC WITH DIFFE RENTI AL/PL ATELE T MCV 97 fL 79-97 normal Not Available [facility] ([facility]) [address] [place], [address], 03/05/2024 08:09:25 03/04/20 24 03/04/2024 CBC WITH DIFFE RENTI AL/PL ATELE T MCH 32.6 pg 26.6-3 3.0 normal Not Available [facility] ([facility]) [address] [place], [address], 03/05/2024 08:09:25 03/04/20 24 03/04/2024 CBC WITH DIFFE RENTI AL/PL ATELE T MCHC 33.8 g/dL 31.5-3 5.7 normal Not Available [facility] ([facility]) [address] [place], [address], 03/05/2024 08:09:25 03/04/20 24 03/04/2024 CBC WITH DIFFE RENTI AL/PL ATELE T RDW 12.3 % 11.6-1 5.4 Not Available [facility] ([facility]) [address] [place], [address], 03/05/2024 08:09:25 03/04/20 24 03/04/2024 CBC WITH DIFFE RENTI AL/PL ATELE T platelets 156 x10e3 /uL 150-45 0 normal Not Available [facility] ([facility]) [address], [place], [address], 03/05/2024 08:09:25 03/04/20 24 03/04/2024 CBC WITH DIFFE RENTI AL/PL ATELE T neutrophils 64 % not estab. normal Not Available [facility] ([facility]) [address], [place], [address], 03/05/2024 08:09:25 03/04/20 24 03/04/2024 CBC WITH DIFFE RENTI AL/PL ATELE T lymphs 22 % not estab. normal Not Available [facility] ([facility]) [address], [place], [address], 03/05/2024 08:09:25 03/04/20 24 03/04/2024 CBC WITH DIFFE RENTI AL/PL ATELE T monocytes 11 % not estab. normal Not Available [facility] ([facility]) [address] [place], [address], 03/05/2024 08:09:25 03/04/20 24 03/04/2024 CBC WITH DIFFE RENTI AL/PL ATELE T eos 1 % not estab. normal Not Available [facility] ([facility]) [address], [place], [address], 03/05/2024 08:09:25 03/04/20 24 03/04/2024 CBC WITH DIFFE RENTI AL/PL ATELE T basos 1 % not estab. normal Not Available [facility] ([facility]) [address] [place], [address], 03/05/2024 08:09:25 03/04/20 24 03/04/2024 CBC WITH DIFFE RENTI AL/PL ATELE T immature cells PLANNING COORDINATOR Not Available [facility] ([facility]) [address] [facility] [place], [address], 03/05/2024 08:09:25 03/04/20 24 03/04/2024 CBC WITH DIFFE RENTI AL/PL ATELE T neutrophils (absolute) 3.7 x10e3 /uL 1.4-7. 0 normal Not Available [facility] ([facility]) [address], [place], [address], 03/05/2024 08:09:25 03/04/20 24 03/04/2024 CBC WITH DIFFE RENTI AL/PL ATELE T lymphs (absolute) 1.2 x10e3 /uL 0.7-3. 1 normal Not Available [facility] ([facility]) [address], [place], [address], 03/05/2024 08:09:25 03/04/20 24 03/04/2024 CBC WITH DIFFE RENTI AL/PL ATELE T monocytes(ab solute) 0.6 x10e3 /uL 0.1-0. 9 normal Not Available [facility] ([facility]) [address] [place], [address], 03/05/2024 08:09:25 03/04/20 24 03/04/2024 CBC WITH DIFFE RENTI AL/PL ATELE T eos (absolute) 0.1 x10e3 /uL 0.0-0. 4 normal Not Available [facility] ([facility]) [address], [place], [address], 03/05/2024 08:09:25 03/04/20 24 03/04/2024 CBC WITH DIFFE RENTI AL/PL ATELE T baso (absolute) 0.0 x10e3 /uL 0.0-0. 2 normal Not Available [facility] ([facility]) [address], [place], [address], 03/05/2024 08:09:25 03/04/20 24 03/04/2024 CBC WITH DIFFE RENTI AL/PL ATELE T immature granulocytes 1 % not estab. Not Available [facility] ([facility]) [address], [place], [address], 03/05/2024 08:09:25 03/04/20 24 03/04/2024 CBC WITH DIFFE RENTI AL/PL ATELE T immature grans (abs) 0.0 x10e3 /uL 0.0-0. 1 Not Available [facility] ([facility]) [address], [place], [address], 03/05/2024 08:09:25 03/04/20 24 03/04/2024 CBC WITH DIFFE RENTI AL/PL ATELE T NRBC PLANNING COORDINATOR Not Available [facility] ([facility]) [address], [place], [address], 03/05/2024 08:09:25 03/04/20 24 03/04/2024 CBC WITH DIFFE RENTI AL/PL ATELE T hematology comments: PLANNING COORDINATOR Not Available [facility] ([facility]) [address], [place], [address], 03/05/2024 08:09:25 03/04/20 24 03/05/2024 COMP. METAB OLIC PANEL (14) glucose 98 mg/dL 70-99 normal Not Available [facility] ([facility]) [address], [place], [address], 03/05/2024 08:09:26 03/04/20 24 03/05/2024 COMP. METAB OLIC PANEL (14) BUN 17 mg/dL 8-27 normal Not Available [facility] ([facility]) [address], [place], [address], 03/05/2024 08:09:26 03/04/20 24 03/05/2024 COMP. METAB OLIC PANEL (14) creatinine 1.06 mg/dL 0.76-1 .27 normal Not Available [facility] ([facility]) [address], [place], [address], 03/05/2024 08:09:26 03/04/20 24 03/05/2024 COMP. METAB OLIC PANEL (14) eGFR 74 mL/mi n/1.7 3 >59 normal Not Available [facility] ([facility]) [address] [place], [address], 03/05/2024 08:09:26 03/04/20 24 03/05/2024 COMP. METAB OLIC PANEL (14) BUN/creatini ne ratio 16 10-24 normal Not Available [facility] ([facility]) [address] [place], [address], 03/05/2024 08:09:26 03/04/20 24 03/05/2024 COMP. METAB OLIC PANEL (14) sodium 141 mmol/ L 134-14 4 normal Not Available [facility] ([facility]) [address] [place], [address], 03/05/2024 08:09:26 03/04/20 24 03/05/2024 COMP. METAB OLIC PANEL (14) potassium 4.9 mmol/ L 3.5-5. 2 normal Not Available [facility] ([facility]) [address] [place], [address], 03/05/2024 08:09:26 03/04/20 24 03/05/2024 COMP. METAB OLIC PANEL (14) chloride 103 mmol/ L 96-106 normal Not Available [facility] ([facility]) [address] [place], [address], 03/05/2024 08:09:26 03/04/20 24 03/05/2024 COMP. METAB OLIC PANEL (14) carbon dioxide, total 21 mmol/ L 20-29 normal Not Available [facility] ([facility]) [address] [place], [address], 03/05/2024 08:09:26 03/04/20 24 03/05/2024 COMP. METAB OLIC PANEL (14) calcium 9.7 mg/dL 8.6-10 .2 normal Not Available [facility] ([facility]) [address] [place], [address], 03/05/2024 08:09:26 03/04/20 24 03/05/2024 COMP. METAB OLIC PANEL (14) protein, total 6.2 g/dL 6.0-8. 5 normal Not Available [facility] ([facility]) [address] [place], [address], 03/05/2024 08:09:26 03/04/20 24 03/05/2024 COMP. METAB OLIC PANEL (14) albumin 4.2 g/dL 3.8-4. 8 normal Not Available [facility] ([facility]) [address] [place], [address], 03/05/2024 08:09:26 03/04/20 24 03/05/2024 COMP. METAB OLIC PANEL (14) globulin, total 2.0 g/dL 1.5-4. 5 Not Available [facility] ([facility]) [address] [place], [address], 03/05/2024 08:09:26 03/04/20 24 03/05/2024 COMP. METAB OLIC PANEL (14) bilirubin, total 0.8 mg/dL 0.0-1. 2 normal Not Available [facility] ([facility]) [address] [place], [address], 03/05/2024 08:09:26 03/04/20 24 03/05/2024 COMP. METAB OLIC PANEL (14) alkaline phosphatase 91 IU/L 44-121 normal Not Available [facility] ([facility]) [address] [place], [address], 03/05/2024 08:09:26 03/04/20 24 03/05/2024 COMP. METAB OLIC PANEL (14) AST (SGOT) 17 IU/L 0-40 normal Not Available [facility] ([facility]) [address] [place], [address], 03/05/2024 08:09:26 03/04/20 24 03/05/2024 COMP. METAB OLIC PANEL (14) ALT (SGPT) 16 IU/L 0-44 normal Not Available [facility] ([facility]) [address] [place], [address], 03/05/2024 08:09:26 03/04/20 24 03/05/2024 LIPID PANEL cholesterol, total 220 mg/dL 100-19 9 above high normal Not Available [facility] ([facility]) [address] [place], [address], 03/05/2024 08:09:26 03/04/20 24 03/05/2024 LIPID PANEL triglyceride s 135 mg/dL 0-149 normal Not Available [facility] ([facility]) [address] [place], [address], 03/05/2024 08:09:26 03/04/20 24 03/05/2024 LIPID PANEL HDL cholesterol 64 mg/dL >39 normal Not Available [facility] ([facility]) [address] [place], [address], 03/05/2024 08:09:26 03/04/20 24 03/05/2024 LIPID PANEL VLDL cholesterol luciana 24 mg/dL 5-40 Not Available [facility] ([facility]) [address] [place], [address], 03/05/2024 08:09:26 03/04/20 24 03/05/2024 LIPID PANEL LDL chol calc ([facility]) 132 mg/dL 0-99 above high normal Not Available [facility] ([facility]) [address] [place], [address], 03/05/2024 08:09:26 03/04/20 24 03/05/2024 LIPID PANEL LDL calc comment: PLANNING COORDINATOR Not Available [facility] ([facility]) [address], [place], [address], 03/05/2024 08:09:26 03/04/20 24 03/04/2024 PSA TOTAL (REFL EX TO FREE) reflex criteria Commen t The perce nt free PSA is perfo rmed on a refle x basis only when the total PSA is betwe en 4.0 and 10.0 ng/mL . Not Available [facility] ([facility]) [address], [place], [address], 03/05/2024 08:09:27 03/04/20 24 03/05/2024 PSA TOTAL (REFL EX TO FREE) prostate specific Ag 2.5 NG/mL 0.0-4. 0 normal [facility] ECLIA metho dolog y. Accor ding to the Ameri can [employer]o g[employer] iatio n, Serum PSA shoul d decre ase and remai n at undet ectab le level s after radic al prost atect vaibhav. The AUA defin es bioch emica l recur rence as an initi al PSA value 0.2 ng/mL or great er follo wed by a subse quent confi rmato ry PSA value 0.2 ng/mL or great er. Value s obtai laverne with diffe rent assay metho ds or kits canno t be used inter alfonso eably . Resul ts canno t be inter prete d as absol cinthia evide nce of the prese nce or absen ce of lonnie price se. Not Available [facility] ([facility]) [address], [place], [address], 03/05/2024 08:09:27 12/06/19 25 12/05/2024 rapid SARS CoV 2 Ag, QL IA, respi rator y speci men RAPID SARS COV 2 negati ve Not Available In-Office Order Internal Use Only DO Not Attach Compendium DO Not Attach Compendium, Do Not Delete/merge, [id number] 12/05/2024 09:48:14 03/06/20 25 03/06/2025 CMP14 +EGFR glucose 93 mg/dL 70-99 normal Not Available [facility] ([facility]) [address], [place], [address], 03/07/2025 06:07:55 03/06/20 25 03/06/2025 CMP14 +EGFR BUN 21 mg/dL 8-27 normal Not Available [facility] ([facility]) [address] [place], [address], 03/07/2025 06:07:55 03/06/20 25 03/06/2025 CMP14 +EGFR creatinine 0.97 mg/dL 0.76-1 .27 normal Not Available [facility] ([facility]) [address] [place], [address], 03/07/2025 06:07:55 03/06/20 25 03/06/2025 CMP14 +EGFR eGFR 81 mL/mi n/1.7 3 >59 normal Not Available [facility] ([facility]) [address], [place], [address], 03/07/2025 06:07:55 03/06/20 25 03/06/2025 CMP14 +EGFR BUN/creatini ne ratio 22 10-24 normal Not Available [facility] ([facility]) [address] [place], [address], 03/07/2025 06:07:55 03/06/20 25 03/06/2025 CMP14 +EGFR sodium 140 mmol/ L 134-14 4 normal Not Available [facility] ([facility]) [address] [place], [address], 03/07/2025 06:07:55 03/06/20 25 03/06/2025 CMP14 +EGFR potassium 4.6 mmol/ L 3.5-5. 2 normal Not Available [facility] ([facility]) [address] [place], [address], 03/07/2025 06:07:55 03/06/20 25 03/06/2025 CMP14 +EGFR chloride 105 mmol/ L 96-106 normal Not Available [facility] ([facility]) [address] [place], [address], 03/07/2025 06:07:55 03/06/20 25 03/06/2025 CMP14 +EGFR carbon dioxide, total 23 mmol/ L 20-29 normal Not Available [facility] ([facility]) [address] [place], [address], 03/07/2025 06:07:55 03/06/20 25 03/06/2025 CMP14 +EGFR calcium 9.4 mg/dL 8.6-10 .2 normal Not Available [facility] ([facility]) [address] [place], [address], 03/07/2025 06:07:55 03/06/20 25 03/06/2025 CMP14 +EGFR protein, total 5.9 g/dL 6.0-8. 5 below low normal Not Available [facility] ([facility]) [address] [place], [address], 03/07/2025 06:07:55 03/06/20 25 03/06/2025 CMP14 +EGFR albumin 4.1 g/dL 3.8-4. 8 normal Not Available [facility] ([facility]) [address] [place], [address], 03/07/2025 06:07:55 03/06/20 25 03/06/2025 CMP14 +EGFR globulin, total 1.8 g/dL 1.5-4. 5 Not Available [facility] ([facility]) [address] [place], [address], 03/07/2025 06:07:55 03/06/20 25 03/06/2025 CMP14 +EGFR bilirubin, total 0.7 mg/dL 0.0-1. 2 normal Not Available [facility] ([facility]) [address], [place], [address], 03/07/2025 06:07:55 03/06/20 25 03/06/2025 CMP14 +EGFR alkaline phosphatase 96 IU/L 44-121 normal Not Available [facility] ([facility]) [address], [place], [address], 03/07/2025 06:07:55 03/06/20 25 03/06/2025 CMP14 +EGFR ALT (SGPT) 11 IU/L 0-44 normal Not Available [facility] ([facility]) [address], [place], [address], 03/07/2025 06:07:55 03/06/20 25 03/07/2025 CMP14 +EGFR AST (SGOT) 15 IU/L 0-40 normal Not Available [facility] ([facility]) [address] [place], [address], 03/07/2025 06:07:55 03/06/20 25 03/06/2025 CBC WITH DIFFE RENTI AL/PL ATELE T WBC 7.0 x10e3 /uL 3.4-10 .8 normal Not Available [facility] ([facility]) [address] [place], [address], 03/07/2025 06:07:55 03/06/20 25 03/06/2025 CBC WITH DIFFE RENTI AL/PL ATELE T RBC 5.06 x10e6 /uL 4.14-5 .80 normal Not Available [facility] ([facility]) [address] [place], [address], 03/07/2025 06:07:55 03/06/20 25 03/06/2025 CBC WITH DIFFE RENTI AL/PL ATELE T hemoglobin 16.1 g/dL 13.0-1 7.7 normal Not Available [facility] ([facility]) [address] [place], [address], 03/07/2025 06:07:55 03/06/20 25 03/06/2025 CBC WITH DIFFE RENTI AL/PL ATELE T hematocrit 48.1 % 37.5-5 1.0 normal Not Available [facility] ([facility]) [address] [place], [address], 03/07/2025 06:07:55 03/06/20 25 03/06/2025 CBC WITH DIFFE RENTI AL/PL ATELE T MCV 95 fL 79-97 normal Not Available [facility] ([facility]) [address] [place], [address], 03/07/2025 06:07:55 03/06/20 25 03/06/2025 CBC WITH DIFFE RENTI AL/PL ATELE T MCH 31.8 pg 26.6-3 3.0 normal Not Available [facility] ([facility]) [address] [place], [address], 03/07/2025 06:07:55 03/06/20 25 03/06/2025 CBC WITH DIFFE RENTI AL/PL ATELE T MCHC 33.5 g/dL 31.5-3 5.7 normal Not Available [facility] ([facility]) [address] [place], [address], 03/07/2025 06:07:55 03/06/20 25 03/06/2025 CBC WITH DIFFE RENTI AL/PL ATELE T RDW 12.1 % 11.6-1 5.4 Not Available [facility] ([facility]) [address] [place], [address], 03/07/2025 06:07:55 03/06/20 25 03/06/2025 CBC WITH DIFFE RENTI AL/PL ATELE T platelets 157 x10e3 /uL 150-45 0 normal Not Available [facility] ([facility]) [address] [place], [address], 03/07/2025 06:07:55 03/06/20 25 03/06/2025 CBC WITH DIFFE RENTI AL/PL ATELE T neutrophils 67 % not estab. normal Not Available [facility] ([facility]) [address] [place], [address], 03/07/2025 06:07:55 03/06/20 25 03/06/2025 CBC WITH DIFFE RENTI AL/PL ATELE T lymphs 20 % not estab. normal Not Available [facility] ([facility]) [address] [place], [address], 03/07/2025 06:07:55 03/06/20 25 03/06/2025 CBC WITH DIFFE RENTI AL/PL ATELE T monocytes 10 % not estab. normal Not Available [facility] ([facility]) [address] [place], [address], 03/07/2025 06:07:55 03/06/20 25 03/06/2025 CBC WITH DIFFE RENTI AL/PL ATELE T eos 3 % not estab. normal Not Available [facility] ([facility]) [address] [place], [address], 03/07/2025 06:07:55 03/06/20 25 03/06/2025 CBC WITH DIFFE RENTI AL/PL ATELE T basos 0 % not estab. normal Not Available [facility] ([facility]) [address] [place], [address], 03/07/2025 06:07:55 03/06/20 25 03/06/2025 CBC WITH DIFFE RENTI AL/PL ATELE T immature cells PLANNING COORDINATOR Not Available [facility] p ([facility]) [address] [place], [address], 03/07/2025 06:07:55 03/06/20 25 03/06/2025 CBC WITH DIFFE RENTI AL/PL ATELE T neutrophils (absolute) 4.6 x10e3 /uL 1.4-7. 0 normal Not Available [facility] ([facility]) [address], [place], [address], 03/07/2025 06:07:55 03/06/20 25 03/06/2025 CBC WITH DIFFE RENTI AL/PL ATELE T lymphs (absolute) 1.4 x10e3 /uL 0.7-3. 1 normal Not Available [facility] ([facility]) [address], [place], [address], 03/07/2025 06:07:55 03/06/20 25 03/06/2025 CBC WITH DIFFE RENTI AL/PL ATELE T monocytes(ab solute) 0.7 x10e3 /uL 0.1-0. 9 normal Not Available [facility] ([facility]) [address] [place], [address], 03/07/2025 06:07:55 03/06/20 25 03/06/2025 CBC WITH DIFFE RENTI AL/PL ATELE T eos (absolute) 0.2 x10e3 /uL 0.0-0. 4 normal Not Available [facility] ([facility]) [address], [place], [address], 03/07/2025 06:07:55 03/06/20 25 03/06/2025 CBC WITH DIFFE RENTI AL/PL ATELE T baso (absolute) 0.0 x10e3 /uL 0.0-0. 2 normal Not Available [facility] ([facility]) [address] [place], [address], 03/07/2025 06:07:55 03/06/20 25 03/06/2025 CBC WITH DIFFE RENTI AL/PL ATELE T immature granulocytes 0 % not estab. Not Available [facility] ([facility]) [address], [place], [address], 03/07/2025 06:07:55 03/06/20 25 03/06/2025 CBC WITH DIFFE RENTI AL/PL ATELE T immature grans (abs) 0.0 x10e3 /uL 0.0-0. 1 Not Available [facility] ([facility]) [address], [place], [address], 03/07/2025 06:07:55 03/06/20 25 03/06/2025 CBC WITH DIFFE RENTI AL/PL ATELE T NRBC PLANNING COORDINATOR Not Available [facility] ([facility]) [address], [place], [address], 03/07/2025 06:07:55 03/06/20 25 03/06/2025 CBC WITH DIFFE RENTI AL/PL ATELE T hematology comments: PLANNING COORDINATOR Not Available [facility] ([facility]) [address], [place], [address], 03/07/2025 06:07:55 03/06/20 25 03/06/2025 LIPID PANEL cholesterol, total 178 mg/dL 100-19 9 normal Not Available [facility] ([facility]) [address] [place], [address], 03/07/2025 06:07:56 03/06/20 25 03/06/2025 LIPID PANEL triglyceride s 101 mg/dL 0-149 normal Not Available [facility] ([facility]) [address] [place], [address], 03/07/2025 06:07:56 03/06/20 25 03/06/2025 LIPID PANEL HDL cholesterol 46 mg/dL >39 normal Not Available [facility] ([facility]) [address] [place], [address], 03/07/2025 06:07:56 03/06/20 25 03/06/2025 LIPID PANEL VLDL cholesterol luciana 18 mg/dL 5-40 Not Available [facility] ([facility]) [address] [place], [address], 03/07/2025 06:07:56 03/06/20 25 03/06/2025 LIPID PANEL LDL chol calc ([facility]) 114 mg/dL 0-99 above high normal Not Available [facility] ([facility]) [address] [place], [address], 03/07/2025 06:07:56 03/06/2003/06/2025 LIPID PANEL LDL calc comment: PLANNING COORDINATOR Not Available [facility] ([facility]) [address], [place], [address], 03/07/2025 06:07:56 03/06/2003/06/2025 PSA TOTAL (REFL EX TO FREE) prostate specific Ag 1.8 NG/mL 0.0-4. 0 normal [facility] ECLIA metho dolog y. Accor ding to the Ameri can Urolo gical Assoc iatio n, Serum PSA shoul d decre ase and remai n at undet ectab le level s after radic al prost atect vaibhav. The AUA defin es bioch emica l recur rence as an initi al PSA value 0.2 ng/mL or great er follo wed by a subse quent confi rmato ry PSA value 0.2 ng/mL or great er. Value s obtai laverne with diffe rent assay metho ds or kits canno t be used inter alfonso eatanjay . Resul ts canno t be inter prete d as absol cinthia evide nce of the prese nce or absen ce of lonnie price se. Not Available [facility] ([facility]) [address] [place], [address], 03/07/2025 06:07:56 03/06/20 25 03/06/2025 PSA TOTAL (REFL EX TO FREE) reflex criteria Commen t The perce nt free PSA is perfo rmed on a refle x basis only when the total PSA is betwe en 4.0 and 10.0 ng/mL . Not Available [facility] ([facility]) [address], [place], [address], 03/07/2025 06:07:56 12/06/19 25 12/05/2024 XR, chest , 2 view Chest 2 Views Fronta l and Lat Reason : CHRONI C COUGH. PRODUC TIVE COUGH 3 MONTHS ; R O INFILT RATIVE COMPAR PADMINI: 11/23/19 24 FINDIN GS: LINES AND TUBES: None. LUNGS AND PLEURA : Diaphr agms are both held relati vely high in positi on, simila r to prior study. Stable linear scarri ng in the left midlun g is clear, no focal infilt rate or volume loss. Normal pulmon anuradha vascul arity. No pleura l effusi on. No pneumo thorax . HEART, MEDIAS TINUM AND ABE: Heart size remain s within normal limits . Stable medias tinal and hilar contou rs. BONES AND SOFT TISSUE S: No acute abnorm ality. Degene rative change s in the thorac ic spine and right should er. IMPRES STEPHY: Genera lly low lung volume s withou t eviden ce for acute cardio pulmon anuradha pathol ogy. WSN: [id number] Orderi ng Physic john: Praveen Winston Dictat ed By: Aga Grande MD Dictat ed Date/T monster: 4:23 pm Review ed By: Aga Grande MD Signed By: Aga Grande MD Signed Date/T monster: 4:23 pm Transc ribed By: ARABELLA Transc ribed Date/T monster: 4:20 pm Patien t Class: Outpat ient [email or web address] [facility] (Outpt Imaging) [address] , [place], [address], 12/05/2024 16:34:51 01/09/20 25 01/03/2025 CT, tempo ral bone, w/o contr ast No observ ation record ed. [facility] [place] [address], [place], [address], 01/09/2025 08:04:26 04/09/20 25 01/08/2025 CT, tempo ral bone, w/o contr ast No observ ation record ed. [facility] [place] [address], [place], [address], 04/09/2025 12:37:21 Result Notes Documentation Provider Name and Address Organization Details Recorded Time Xr, Chest, 2 View : Chest 2 Views Frontal and Lat Reason: CHRONIC COUGH. PRODUCTIVE COUGH 3 MONTHS; R O INFILTRATIVE COMPARISON: 11/23/2023 FINDINGS: LINES AND TUBES: None. LUNGS AND PLEURA: Diaphragms are both held relatively high in position, similar to prior study. Stable linear scarring in the left midlung is clear, no focal infiltrate or volume loss. Normal pulmonary vascularity. No pleural effusion. No pneumothorax. HEART, MEDIASTINUM AND ABE: Heart size remains within normal limits. Stable mediastinal and hilar contours. BONES AND SOFT TISSUES: No acute abnormality. Degenerative changes in the thoracic spine and right shoulder. IMPRESSION: Generally low lung volumes without evidence for acute cardiopulmonary pathology. WSN: [id number] Ordering Physician: Praveen Morris Dictated By: Tonio Astudillo MD Dictated Date/Time: 12/05/24 4:23 pm Reviewed By: Tonio Astudillo MD Signed By: Tonio Astudillo MD Signed Date/Time: 12/05/24 4:23 pm Transcribed By: ARABELLA Transcribed Date/Time: 12/05/24 4:20 pm Patient Class: Outpatient Eleni Ryan LPN [facility] 12/05/2024 16:34:51 Problems Name Problem SNOMED Code Status Onset Date Resolution Date Notes Provider Name and Address Organization Details Recorded Time Impotenc e Active Followed by urology Not Available [facility] 4 18:31:33 Pain of wrist region 35217879 Active Not Available [facility] 4 18:31:33 Tinea pedis 1945766 Active Not Available [facility] 4 18:31:33 Low back strain 884176253 Active Not Available [facility] 4 18:31:32 Sinusiti s 73380997 Completed 12/15/2015 Praveen Morris MD [address] [address], [place], [address] , [facility] 6 09:53:30 Chronic sinusiti s 75661297 Active Not Available [facility] 4 18:31:33 Carpal tunnel syndrome 51574851 Active Not Available [facility] 4 18:31:33 Cough 31055450 Completed 10/03/2017 Cheryl perales, [facility] 8 16:13:00 Acute sinusiti s 52706467 Completed 10/03/2017 Cheryl perales, [facility] 8 16:13:11 Knee pain Active [address] Harris Not Available [facility] 4 18:31:32 General examinat ion of patient Completed 200802/04/2014 RECORDED 08/20/19 09 9:16AM BY PRAVEEN BETANCOURT MD, ANNOTATI ON/ADDEN DUM Praveen Morris MD [address] [facility] [address], [place], [address] , [facility] 6 09:53:30 Pre-surg frieda evaluati on Completed 200802/04/2014 RECORDED 08/20/19 09 9:16AM BY PRAVEEN BETANCOURT MD, ANNOTATI ON/ADDEN DUM Praveen Morris MD [address] [facility] [address], [place], [address] , [facility] 6 09:53:30 Adult health examinat ion Completed 200802/04/2014 RECORDED 08/20/19 09 9:16AM BY PRAVEEN BETANCOURT MD, ANNOTATI ON/ADDEN DUM Praveen Morris MD [address], [place], [address] , [facility] 6 09:53:30 General examinat ion of patient Completed 200802/24/2014 RECORDED 08/20/19 09 9:16AM BY PRAVEEN BETANCOURT MD, ANNOTATI ON/ADDEN DUM Praveen Morris MD [address], [place], [address] , [facility] 6 09:53:30 Pre-surg frieda evaluati on Completed 200802/24/2014 RECORDED 08/20/19 09 9:16AM BY PRAVEEN BETANCOURT MD, ANNOTATI ON/ADDEN DUM Praveen Morris MD [address], [place], [address] , [facility] 6 09:53:30 Administ ration of bacteria l and viral vaccine Completed 201002/04/2014 RECORDED 10/07/19 11 9:56AM BY JIM DORANTES, OFFICE VISIT Praveen Morris MD [address], [place], [address] , [facility] 6 09:53:30 Administ ration of bacteria l and viral vaccine Completed 201002/24/2014 RECORDED 10/07/19 11 9:56AM BY JIM DORANTES, OFFICE VISIT Praveen Morris MD [address], [place], [address] , [facility] 6 09:53:30 Cough 87711513 Completed 201202/04/2014 RECORDED 07/30/19 13 3:48PM BY KAYLA MEEHAN MA, ANNOTATI ON/ADDEN DUM Cheryl perales, [facility] 8 16:13:00 Enthesop athy of hip region 77288369 Completed 201202/04/2014 RECORDED 07/30/19 13 3:48PM BY KAYLA MEEHAN MA, MARIAH ON/HELGA Morris MD [address], [place], [address] , [facility] 6 09:53:30 Enthesop athy of knee 75847709 Completed 201202/04/2014 RECORDED 07/30/19 13 3:48PM BY KAYLA MEEHAN MA, MARIAH ON/HELGA Morris MD [address], [place], [address] , [facility] 6 09:53:30 Malaise and fatigue 409577672 Completed 201202/04/2014 RECORDED 07/30/19 13 3:48PM BY KAYLA MEEHAN MA, MARIAH ON/HELGA Morris MD [address], [place], [address] , [facility] 6 09:53:30 Psychose xual dysfunct ion associat ed with inhibite d libido 748378365 Completed 201202/04/2014 RECORDED 07/30/19 13 3:48PM BY KAYLA MEEHAN MA, MARIAH ON/HELGA Morris MD [address], [place], [address] , [facility] 6 09:53:30 Eruption [id number] Completed 201202/04/2014 RECORDED 07/30/19 13 3:48PM BY KAYLA MEEHAN MA, MARIAH ON/HELGA Morris MD [address], [place], [address] , [facility] 6 09:53:30 Screenin g for malignan t neoplasm of colon Completed 201202/04/2014 RECORDED 07/30/19 13 3:49PM BY KAYLA MEEHNA MA, ANNOTATI ON/ADDEN EDUARDO Morris MD [address], [place], [address] , [facility] 6 09:53:30 Cough 18401781 Completed 201202/24/2014 RECORDED 07/30/19 13 3:48PM BY KAYLA MEEHAN MA, ANNOTATI ON/ADDEN DUM [facility] 8 16:13:00 Enthesop athy of hip region 00415946 Completed 201202/24/2014 RECORDED 07/30/19 13 3:48PM BY KAYLA MEEHAN MA, ANNOTAL ON/ADDEN EDUARDO Morris MD [address] [facility] [address], [place], [address] , [facility] 6 09:53:30 Enthesop athy of knee 43689821 Completed 201202/24/2014 RECORDED 07/30/19 13 3:48PM BY KAYLA MEEHAN MA, MARIAH ON/ADDEN EDUARDO Morris MD [address] [facility] [address], [place], [address] , [facility] 6 09:53:30 Malaise and fatigue 086256553 Completed 201202/24/2014 RECORDED 07/30/19 13 3:48PM BY KAYLA MEEHAN MA, ANNOTAL ON/HELGA Morris MD [address] [facility] [address], [place], [address] , [facility] 6 09:53:30 Psychose xual dysfunct ion associat ed with inhibite d libido 468225332 Completed 201202/24/2014 RECORDED 07/30/19 13 3:48PM BY KAYLA MEEHAN MA, ANNOTATI ON/ADD EDUARDO Morris MD [address] [facility] [address], [place], [address] , [facility] 6 09:53:30 Eruption [id number] Completed 201202/24/2014 RECORDED 07/30/19 13 3:48PM BY KAYLA MEEHAN MA, MARIAH ON/ EDUARDO Morris MD [address] [facility] [address], [place], [address] , [facility] 6 09:53:30 Screenin g for malignan t neoplasm of colon Completed 201202/24/2014 RECORDED 07/30/19 13 3:48PM BY KAYLA MEEHAN MA, FAUSTINOATI ON/MARGARITA Morris MD [address] [facility] [address], [place], [address] , [facility] 6 09:53:30 Acute sinusiti s 10820661 Completed 201202/04/2014 IMPRESSI ON: WE DISCUSSE D THAT HE LIKELY DOES NOT NEED PREDNISO NE YET AND ITS POTENTIA L ADVERSE EFFECTS. BUT HE IS ADMANENT THAT HE NEEDS THIS. HE UNDERSTA NDS RISKS. MARIN MED SINUS RINSE WITH STERILE WATER. CONTINUE NASONEX; RECORDED 09/18/19 13 9:21AM BY MARIAH ALEMAN ON/ADD EDUARDO perales, [facility] 8 16:13:11 Influenz a vaccine needed 84363896846 06 Completed 201202/04/2014 RECORDED 03/25/20 13 9:57AM BY ARTURO EASTMAN I, OFFICE VISIT Praveen Morris MD [address], [place], [address] , [facility] 6 09:53:30 Laborato ry procedur e performe d 424221666 Completed 201202/04/2014 RECORDED 03/25/20 13 9:29AM BY ARTURO EASTMAN I, ANNOTATI ON/ADDEN EDUARDO Morris MD [address] [facility] [address], [place], [address] , [facility] 6 09:53:30 Influenz a vaccine needed 60186148755 06 Completed 201202/24/2014 RECORDED 03/25/20 13 9:57AM BY ARTURO EASTMAN I, OFFICE VISIT Praveen Morris MD [address] [facility] [address], [place], [address] , [facility] 6 09:53:30 Laborato ry procedur e performe d 667412066 Completed 201202/24/2014 RECORDED 03/25/20 13 9:29AM BY ARTURO EASTMAN I, ANNOTATI ON/ADDMARGARITA Morris MD [address] [facility] [address], [place], [address] , [facility] 6 09:53:30 Patient status finding [id number] Completed 201305/20/2014 RECORDED 11/22/19 14 2:41PM BY ARTURO EASTMAN I, OFFICE VISIT Praveen Morris MD [address] [facility] [address], [place], [address] , [facility] 6 09:53:30 Essentia l hyperten stephy 92394144 Active 2013 Not Available [facility] 4 18:31:33 Hydrocel e Active 2013 Not Available [facility] 4 18:31:33 Nocturia 946425849 Active 2013 Not Available [facility] 4 18:31:32 Adult health examinat ion Completed 201305/20/2014 IMPRESSI ON: HE HAD BLOOD WORK DONE AT WORK A COUPLE OF MONTHS AGO AND IT WAS PLACED IN THE CHART.; RECORDED 11/22/19 14 2:41PM BY ARTURO EASTMAN I, OFFICE VISIT Praveen Morris MD [address], [place], [address] , [facility] 6 09:53:30 Olecrano n bursitis 700786185 Active 2013 Not Available [facility] 4 18:31:33 Acute sinusiti s 28695011 Completed 201305/20/2014 RECORDED 01/11/20 14 10:55AM BY RICHARD TRIPATHI MD, PHONE ENCOUNTE R Cheryl perales, [facility] 8 16:13:11 Low back pain 309934526 Active 2014 SI joint injectio n by [facility]. Also PT. 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 Injected at [facility] Not Available [facility] 4 18:31:32 Rivers' s esophagu s 843865943 Active [address] Hollins Mar 2024 Praveen Morris MD [address] [facility] [address], [place], [address] , [facility] 4 12:32:55 Supraven tricular tachycar katheryn 0738157 Active 2020 Followed by cardiolo gy Not Available [facility] 4 18:31:33 Osteoart hritis of knee 504897651 Active 2021 Left; will have surgery late 2021 Not Available [facility] 4 18:31:32 Hyperten stephy monitori ng status 270011269 Active 2021 Accuheal th- disenrol led Not Available [facility] 4 18:31:32 Thromboc ytopenic disorder 487895202 Active 2021 Not Available [facility] 4 18:31:32 Gastroes ophageal reflux disease 390727084 Active 2022 Not Available [facility] 4 18:31:32 COVID-19 901618681 Active 2022 Not Available [facility] 4 18:31:33 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 Gets regular injectio ns. Praveen Morris MD [address], [place], [address] , [facility] 5 17:35:45 Spinal stenosis of lumbar region 93508734 Active 2023 L5-S1; followed by Dr Hilario. Improved after radiofre quency Praveen Morris MD [address], [place], [address] , [facility] 4 20:02:14 Congesti ve heart failure 36442997 Active 2023 Followed by cardiolo gy. EF=30-40 % done 11/24/23. Reeder to be secondar y to afib. Recovere d EF after pulsed field ablation January 2024 Praveen Morris MD [address], [place], [address] , [facility] 5 08:00:20 Paroxysm al atrial fibrilla tion 237792269 Active 2023 CHADSS 2 followed by cardiolo gy May be getting an LAAO (left atrial apendage occlusio n). Praveen Morris MD [address], [place], [address] , [facility] 4 10:15:57 Pain of right shoulder region Active 2024 Degenera tive rotator cuff disease. Praveen Morris MD [address], [place], [address] , [facility] 5 17:35:00 Sensorin eural hearing loss 23005659 Active 2024 Praveen Morris MD [address] [facility] [address], [place], [address] , [facility] 5 14:37:48 Flexor tenosyno vitis of finger 122047679 Active 2024 Followed by hand surgeon, Dr Raman. Right ring and small finger. Praveen Morris MD [address] [facility] [address], [place], [address] , [facility] 5 08:00:42 Problem Notes None recorded. Procedures Surgical History Date Name Laterality Status Provider Name and Address Organization Details Recorded Time 03/04 Advanced Care Planning completed Ledy Jean [facility] 5 13:25:58 04/04 Endoscopic us exam esoph completed Salina Lujan [facility] 4 08:12:51 05/29 radiofrequency ablation of medial branch of lumbar nerve using fluoroscopic guidance completed Salina Lujan [facility] 3 08:55:11 01/24 Advanced Care Planning completed Praveen Morris MD [address] [facility] [address], [place], [address] , [facility] 3 10:58:27 04/15 total replacement of left knee joint completed Rosmery Cesar [facility] 2 10:11:04 06/14 esophagogastroduodenoscopy completed Jaime Bustillo [facility] 1 10:50:14 04/16 Joint Replacement completed Daija Loya MA [facility] 2 11:15:05 04/09 Colonoscopy completed Tiffanie Levine [facility] 0 13:27:50 03/04 injection of knee completed Tiffanie Levine [facility] 0 09:53:06 01/05 Six-Item Cognitive Test completed Arturo Padilla [facility] 0 10:53:18 12/25 Mini-Cog Test completed Arturo Olivercriss [facility] 9 09:57:05 08/03 Carpal tunnel surgery completed Praveen Morris MD [address] [facility] [address], [place], [address] , [facility] 0 11:53:09 12/20 Mini-Cog Test completed Arturo Padilla [facility] 8 09:44:26 12/16 Fall Risk Assessment completed Arturodella Padilla [facility] 7 10:30:20 12/16 Mini-Cog Test completed Arturo Padilla [facility] 7 10:30:27 12/14 Fall Risk Assessment completed Arturodella Padilla [facility] 6 09:33:23 12/14 Mini-Cog Test completed Arturo Padilla [facility] 6 09:33:23 12/14 Advanced Care Planning completed Arturo Padilla [facility] 6 09:24:28 07/17 Knee Surgery completed Praveen Morris MD [address] [facility] [address], [place], [address] , [facility] 4 23:49:59 07/17 Gastrointestinal Surgery completed Praveen Morris MD [address], [place], [address] , [facility] 6 09:53:49 Knee Surgery completed Daija Loya MA [facility] 3 10:08:55 Imaging Results None recorded. Procedure Notes None recorded. Medical Equipment None Reported. Allergies Allergen ID Allergen Name Allergen Category Reaction Reaction Severity Criticality Documentation Date Start Date Code Code System Note Provider Name and Address Organization Details Recorded Time 75471 amlodipin e medicatio n lighthead edness Not available Not available 08/26/2024 22503 RxNorm Unique JIM Collins, [facility] 5 13:07:08 Medications Name Sig Start Date Stop Date Status Note LastModified by Organization Details LastModified Time Prescript ion - Prior Authoriza tion Request active Jublia Not Available Not Available Not Available Miralax 17 gram oral powder packet Take 1 packet every day by oral route as needed. 02/07 completed Not Available Not Available Not Available celecoxib 200 mg capsule TAKE 1 CAPSULE BY MOUTH EVERY DAY 10/11 completed Not Available Not Available Not Available amoxicill in 500 mg capsule TAKE 4 CAPSULES 1 HOUR PRIOR TO COMING IN FOR A DENTAL APPOINTM ENT. active Not Available Not Available No t Available promethaz ine-DM 6.25 mg-15 mg/5 mL oral syrup TAKE 5 ML BY MOUTH 4 TIMES A DAY EVERY 6 HOURS NEEDED FOR COUGH 12/05 completed Not Available Not Available Not Available Colace 100 mg capsule Take 1 capsule twice a day by oral route as needed. 2023 active Not Available Not Available Not Avai lable acetamino phen 325 mg tablet Take 2 tablets every 6 hours by oral route as needed. 11/26 completed Not Available Not Available Not Available prednison e 10 mg tablet PLEASE SEE ATTACHED FOR DETAILED DIRECTIO NS 03/04 completed Not Available Not Available Not Available doxycycli ne hyclate 100 mg capsule TAKE 1 CAPSULE BY MOUTH TWICE A DAY 12/05 completed Not Available Not Available Not Available azithromy eitan 250 mg tablet TAKE 2 TABLETS BY MOUTH TODAY, THEN TAKE 1 TABLET DAILY FOR 4 DAYS DIRECTED 03/05 completed Not Available Not Available Not Available aspirin 325 mg tablet Take 1 tablet twice a day by oral route as directed . 07/26 completed duplicat e Not Available Not Available Not Available amiodaron e 200 mg tablet Take 1 tablet every day by oral route. 09/06 completed Not Available Not Available Not Available benzonata te 200 mg capsule Take 1 capsule 3 times a day by oral route as needed for 10 days, for cough. 12/22 completed Not Available Not Available Not Available metoprolo l succinate ER 50 mg tablet,ex tended release 24 hr DAILY 11/15 completed RECORDED 11/16/19 11 12:30PM BY PRAVEEN BETANCOURT MD, MARIAH ON/HELGA DUM; Not Available Not Available Not Available senna 8.6 mg tablet Take 2 tablets every day by oral route as directed . 07/26 completed Not Available Not Available Not Available prednison e 20 mg tablet Take 2 tablets every day by oral route for 7 days, for cough. 12/19 completed Not Available Not Available Not Available metoprolo l succinate ER 100 mg tablet,ex tended release 24 hr TAKE 1 TABLET BY MOUTH TWICE A DAY 05/14 completed Not Available Not Available Not Available Tylenol Arthritis Pain 650 mg tablet,ex tended release Take 2 tablets twice a day by oral route. active Not Available Not Available No t Available amlodipin e 2.5 mg tablet TAKE 1 TABLET BY MOUTH EVERY DAY active Not Available Not Available No t Available amlodipin e 5 mg tablet Take 1 tablet every day by oral route for 90 days. 04/20 completed Not Available Not Available Not Available chlorthal idone 50 mg tablet DAILY 03/22 completed RECORDED 03/22/20 11 5:50PM BY PRAVEEN BETANCOURT MD, MARIAH ON/HELGA DUM; Not Available Not Available Not Available doxycycli ne monohydra te 100 mg tablet TAKE 1 TABLET (100 MG TOTAL) BY MOUTH EVERY 12 (TWELVE) HOURS AROUND THE CLOCK. 08/16 completed Not Available Not Available Not Available tramadol 50 mg tablet TAKE 1 TO 2 TABLETS BY MOUTH EVERY 6 HOURS NEEDED FOR PAIN DONT DRIVE ON MED 07/26 completed Not Available Not Available Not Available spironola ctone 25 mg tablet TAKE 1/2 TABLET BY MOUTH DAILY active Not Available Not Available No t Available meloxicam 7.5 mg tablet 12/25 completed Not Available Not Available Not Available losartan 100 mg-hydroc hlorothia zide 25 mg tablet TAKE 1 TABLET BY MOUTH EVERY DAY 06/10 completed Not Available Not Available Not Available oxycodone -acetamin ophen 5 mg-325 mg tablet Take 1-2 at bedtime as needed 06/15 completed Not Available Not Available Not Available amoxicill in 875 mg tablet TAKE 1 TABLET BY MOUTH TWICE A DAY UNTIL FINISHED 01/05 completed Not Available Not Available Not Available amiodaron e 400 mg tablet TAKE 1 TABLET BY MOUTH EVERY DAY 05/14 completed Not Available Not Available Not Available aspirin 325 mg tablet,de layed release TAKE ONE TABLET TWICE A DAY FOR 30 DAYS. MEDICATI ON TO BE STARTED AFTER SURGERY. 07/06 completed Not Available Not Available Not Available tamsulosi n 0.4 mg capsule TAKE 1 CAPSULE BY MOUTH EVERY DAY 2024 active Not Available Not Available Not Avai lable amlodipin e 10 mg tablet Take 1 tablet every day by oral route. 07/06 completed Not Available Not Available Not Available hydrocodo ne 7.5 mg-acetam inophen 325 mg tablet 06/15 completed Not Available Not Available Not Available cephalexi n 500 mg capsule 07/07 completed Not Available Not Available Not Available pantopraz ole 40 mg tablet,de layed release TAKE 1 TABLET TWICE A DAY BY ORAL ROUTE FOR 90 DAYS. 2024 active Not Available Not Available Not Avai lable lisinopri l 10 mg tablet DAILY 10/28 completed RECORDED 10/29/19 11 12:28PM BY PRAVEEN BETANCOURT MD, ANNOTATI ON/ADDMARGARITA DUM; Not Available Not Available Not Available Advair Diskus 250 mcg-50 mcg/dose powder for inhalatio n EVERY 12 HOURS 06/19 completed RECORDED 08/12/19 11 3:19PM BY PRAVEEN BETANCOURT MD, MEDICATI ON AUTO-PRASHANT CTIVATIO N; Not Available Not Available Not Available diltiazem CD 120 mg capsule,e xtended release 24 hr Take 1 capsule every day by oral route for 90 days, for afib. 05/14 completed Not Available Not Available Not Available Iophen C-NR 10 mg-100 mg/5 mL oral liquid Take 10 mL EVERY 4 HOURS as needed for cough. caution drowsine ss active Not Available Not Available No t Available hydrochlo rothiazid e 25 mg tablet 06/26 completed stopped due to low BP and frequent urinatio n Not Available Not Available Not Available senna 187 mg tablet Take 1 tablet every day by oral route at bedtime. 12/05 completed Not Available Not Available Not Available digoxin 125 mcg (0.125 mg) tablet Take 1 tablet every day by oral route. 02/07 completed Not Available Not Available Not Available Viagra 100 mg tablet Take 1 tablet as needed by oral route for 30 days. 01/10 completed Not Available Not Available Not Available diazepam 10 mg tablet Take 1 tablet 3 times a day by oral route as needed. active Not Available Not Available No t Available Nasonex 50 mcg/actua tion [place] 2 sprays every day by intranas al route. active Not Available Not Available No t Available cefuroxim e axetil 500 mg tablet TWO TIMES DAILY 2013 active RECORDED 01/11/20 14 10:56AM BY RICHARD TRIPATHI MD, PHONE ENCOUNTE R; Not Available Not Available Not Available methylpre dnisolone 4 mg tablets in a dose pack Take 1 package every day by oral route as directed . active Not Available Not Available No t Available albuterol sulfate HFA 90 mcg/actua tion aerosol inhaler INHALE 2 PUFFS BY MOUTH EVERY 4 HOURS IF NEEDED active Not Available Not Available No t Available losartan 100 mg tablet TAKE 1 TABLET BY MOUTH EVERY DAY active Not Available Not Available No t Available fluticaso ne propionat e 50 mcg/actua tion nasal spray,concepción pension SPRAY 2 SPRAYS BY INTRANAS AL ROUTE EVERY DAY NEEDED active Not Available Not Available No t Available clotrimaz ole 1 % topical cream APPLY TO AFFECTED AREA TWICE A DAY IN THE MORNING AND IN THE EVENING 07/26 completed Not Available Not Available Not Available ipratropi um bromide 21 mcg (0.03 %) nasal spray SPRAY 2 SPRAYS INTO EACH NOSTRIL 3 TIMES A DAY. active Not Available Not Available No t Available amoxicill in 875 mg-potass ium clavulana te 125 mg tablet Take 1 tablet every 12 hours by oral route for 10 days. active Not Available Not Available No t Available oxycodone 5 mg tablet TAKE 1 TABLET BY MOUTH EVERY 4 HOURS NEEDED 08/16 completed Not Available Not Available Not Available azithromy eitan 500 mg tablet active Not Available Not Available No t Available amoxicill in-potass ium clavulana te 1,000 mg-62.5 mg tablet,ex t.rel 12hr Take 2 tablets every 12 hours by oral route for 10 days. active Not Available Not Available No t Available Prilosec OTC 20 mg tablet,de layed release Take 1 tablet as needed by oral route. 07/07 completed Not Available Not Available Not Available alfuzosin ER 10 mg tablet,ex tended release 24 hr TAKE 1 TABLET BY MOUTH EVERY DAY 07/26 completed Not Available Not Available Not Available Boostrix Tdap 2.5 Lf unit-8 mcg-5 Lf/0.5 mL intramusc ular syringe 06/20 completed Not Available Not Available Not Available chlorhexi dine gluconate 0.12 % mouthwash RINSE WITH 15 ML BY MOUTH TWICE A DAY THEN SPIT 04/20 completed Not Available Not Available Not Available acetamino phen 2 tablets by mouth every 12 hours PRN 07/26 completed Not Available Not Available Not Available Glucosami ne take 2 cap po daily active 75mg Not Available Not Available No t Available Stool Softener 1 po qd as needed 10/11 completed Not Available Not Available Not Available Antioxida nt take 1 po daily active Not Available Not Available No t Available multivita min take 1 po daily 07/26 completed Not Available Not Available Not Available Zostavax (PF) 19,400 unit/0.65 mL subcutane ous suspensio n ONE TIME DOSE 06/20 completed Not Available Not Available Not Available saw palmetto 450 mg capsule Take 1 capsule every day by oral route as directed . 2023 active Not Available Not Available Not Avai lable Flovent Diskus 100 mcg/actua tion powder for inhalatio n Inhale 2 puffs every day by inhalati on route as needed for 30 days. 08/23 completed Not Available Not Available Not Available Eliquis 5 mg tablet TAKE 1 TABLET BY MOUTH TWICE A DAY active Not Available Not Available No t Available Farxiga 10 mg tablet TAKE 1 TABLET BY MOUTH EVERY DAY active Not Available Not Available No t Available Jublia 10 % topical solution with applicato r APPLY TO AFFECTED TOE NAIL(S) BY TOPICAL ROUTE ONCE DAILY 06/15 completed Not Available Not Available Not Available Plenvu 140 gram-9 gram-5.2 gram powder packs TAKE 3 PACKET DISSOLVE D IN WATER DIRECTED 04/20 completed Not Available Not Available Not Available turmeric 1950 mg twice daily 02/07 completed Not Available Not Available Not Available Fluad Quad (65yr up)(PF) 60 mcg (15 mcg x 4)/0.5mL IM syringe PHARMACY ADMINIST ERED 04/20 completed Not Available Not Available Not Available BinaxNOW COVID-19 Ag Self Test kit TEST DIRECTED TODAY 03/05 completed Not Available Not Available Not Available Paxlovid 300 mg (150 mg x 2)-100 mg tablets in a dose pack TAKE 3 TABLETS BY MOUTH TWICE A DAY DIRECTED FOR 5 DAYS 09/01 completed Not Available Not Available Not Available molnupira vir 200 mg capsule (EUA) Take 4 capsules every 12 hours by oral route for 5 days. 08/16 completed Not Available Not Available Not Available Vitals Date Recorded Body height Body mass index (BMI) Body weight Heart rate Oxygen saturation Oxygen saturation in Arterial blood by Pulse oximetry Body temperature Systolic And Diastolic Provider Name and Address Organization Details Last Updated DateTime 5 179.07 cm 29.6 kg/m2 23352.8 1 g 83 /min 96 % 96 % 97.9 [degF] 151/82 mm[Hg] Joel avila MA [facility] 5 11:02:55 Date Recorded Body height Body mass index (BMI) Body weight Heart rate Oxygen saturation Oxygen saturation in Arterial blood by Pulse oximetry Body temperature Systolic And Diastolic Provider Name and Address Organization Details Last Updated DateTime 5 179.07 cm 29.9 kg/m2 89403.0 9 g 80 /min 97 % 97 % 98.2 [degF] 139/82 mm[Hg] Eleni Ryan LPN [facility] 5 09:43:32 Date Recorded Body height Body mass index (BMI) Body weight Heart rate Oxygen saturation Oxygen saturation in Arterial blood by Pulse oximetry Body temperature Systolic And Diastolic Provider Name and Address Organization Details Last Updated DateTime 5 179.07 cm 30.7 kg/m2 08998.5 4 g 71 /min 95 % 95 % 98 [degF] 136/69 mm[Hg] Urmila Bo MA [facility] 5 14:02:14 Date Recorded Body height Body mass index (BMI) Body weight Heart rate Oxygen saturation Oxygen saturation in Arterial blood by Pulse oximetry Body temperature Systolic And Diastolic Provider Name and Address Organization Details Last Updated DateTime 4 179.07 cm 29.7 kg/m2 45159.4 g 76 /min 98 % 98 % 97.3 [degF] 152/91 mm[Hg] Urmila Bo MA [facility] 4 11:37:47 Social History Question Answer Notes LastModified by Organizat ion Details LastModified Time Tobacco Smoking Status Never Smoker Not Available [facility] 05/19/2020 03:36:37 Do You Have An Advance Directive? Yes [facility] [email or web address] Information not available 01/10/2022 Is Blood Transfusion Acceptable In An Emergency? Yes [id number] Information not available 05/19/2020 What Is Your Level Of Caffeine Consumption? Moderate 2 Cups Of Coffee Daily [id number] Information not available 05/19/2020 How Much Tobacco Do You Chew? None [id number] Information not available 05/19/2020 What Type Of Diet Are You Following? REGULAR Salads [id number] Information not available 05/19/2020 Which Illicit Or Recreational Drugs Have You Used? None [id number] Information not available 05/19/2020 Live Alone Or With Others? With Others Girlfriend Information not available 01/10/2022 Do You Take Precautions To Prevent Distracted Driving? Yes [email or web address] Information not available 12/15/2015 How Often Do You Need To Have Someone Help You When You Read Instructions, Pamphlets, Or Other Written Material From Your Doctor Or Pharmacy? Never Information not available 12/15/2015 Have You Served In The ? No Information not available 06/15/2016 Have You Or Anyone In Your Household Had Any Of The Following Symptoms In The Last 14 Days: Sore Throat, Cough, Chills, Body Aches For Unknown Reasons, Shortness Of Breath For Unknown Reasons, Loss Of Smell, Loss Of Taste, Fever At Or Greater Than 100 Degrees Fahrenheit? No [email or web address] Information not available 04/14/2020 Are You Or Anyone In Your Household A Health Care Provider Or Emergency Responder? No [email or web address] Information not available 04/14/2020 To The Best Of Your Knowledge Have You Been In Close Proximity To Any Individual Who Tested Positive For COVID-19? No Information not available 04/14/2020 Have You Recently Traveled To A COVID-19 High Risk Area Or Gathering In The Last 10 Days? No [email or web address] Information not available 08/17/2020 What Was The Date Of Your Most Recent Tobacco Screening? 03/04/2025 [email or web address] Information not available 03/04/2025 How Many Children Do You Have? 2 Sons; One In [place]; 4 GC's 2 Girls And 2 Boys [email or web address] Information not available 01/10/2022 Do You Use Protection During Sex? Always [id number] Information not available 05/19/2020 Do You Use Your Seat Belt Or Car Seat Routinely? Yes Information not available 01/10/2022 Seat Belts Used Routinely Yes Information not available 01/10/2022 Are You Sexually Active? Yes [id number] Information not available 05/19/2020 Smoke Alarm In Home Yes Information not available 01/10/2022 Do You Have Smoke And Carbon Monoxide Detectors In Your Home? Yes Information not available 01/10/2022 At What Age Did You Start Smoking Tobacco? 1 [id number] Information not available 05/19/2020 Are You Passively Exposed To Smoke? No Information not available 06/15/2016 How Much Tobacco Do You Smoke? No [id number] Information not available 05/19/2020 Do You Use Sunscreen Routinely? Yes [id number] Information not available 05/19/2020 How Many Years Have You Smoked Tobacco? 0 [id number] Information not available 05/19/2020 Sex: Unknown Functional Status Question Answer Note LastModified by Organizat ion Details LastModified Time Do you use any illicit or recreational drugs? No Information not available 01/10/2022 Do you or have you ever used any other forms of tobacco or nicotine? No Information not available 01/10/2022 What is your level of alcohol consumption? Occasional [id number] Information not available 05/19/2020 Do you or have you ever used smokeless tobacco? Never used smokeless tobacco [id number] Information not available 05/19/2020 Are you currently employed? Yes [id number] Information not available 05/19/2020 Are you able to walk independently without assistance or assistive devices? [email or web address] Information not available 01/10/2022 Are you able to care for yourself independently? 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 Never used electronic cigarettes Information not available 01/10/2022 What is your exercise level? Moderate daily; yardwork, housework, gym, and walking [id number] Information not available 05/19/2020 Mental Status None recorded. Family History Relationship Description Onset Age of this Age Resolved Age Notes LastModified by Organization Details LastModified Time Mother Congestive heart failure 84 [email or web address] Not available 2021 10:57:51 Mother Alzheimer's disease 84 [email or web address] Not available 12/16 10:54:48 Mother Heart disease 84 [email or web address] Not available 12/16 10:54:52 Mother Arthritis 84 [email or web address] Not avail able 01/06/2021 10:54:58 Father Harmful pattern of use of alcohol 66 [email or web address] Not available 12/16 11:42:55 Father Liver problem 66 [email or web address] Not available 12/16 11:05:33 Sister Malignant neoplastic disease 78 Possib ly kidney [email or web address] Not available 02/08/2024 13:39:27 Notes:1 sister Medical History Condition Response Kidney Stones Y Hospitalizations Y Arthritis Y Hypertension Y Immunizations Vaccine Type Date Status Note Provider Nam e and Address Organization Details Recorded Time Pneumococcal conjugate PCV 13 7 completed Not Available [facility] 08/23/2023 18:31:33 zoster live 7 completed Not Available [facility] 08/23/2023 18:31:33 Tdap 7 completed Not Available [facility] 08/23/2023 18:31:33 Influenza, high-dose, trivalent, PF 8 completed Not Available [facility] 08/23/2023 18:31:33 Influenza, high-dose, quadrivalent, PF 0 completed Eleni Lie, ELECTRONICS PROCESSING SUPERVISOR null, [facility] 10/12/2023 12:58:26 COVID-19, mRNA, LNP-S, PF, 100 mcg/0.5mL dose or 50 mcg/0.25mL dose 1 completed Not Available [facility] 08/23/2023 18:31:33 COVID-19, mRNA, LNP-S, PF, 100 mcg/0.5mL dose or 50 mcg/0.25mL dose 1 completed Not Available [facility] 08/23/2023 18:31:33 zoster recombinant 1 completed Eleni Lie, ELECTRONICS PROCESSING SUPERVISOR null, [facility] 10/12/2023 12:58:26 Influenza, adjuvanted, quadrivalent, PF 1 completed Eleni Lie, ELECTRONICS PROCESSING SUPERVISOR null, [facility] 10/12/2023 12:58:26 COVID-19, mRNA, LNP-S, PF, 100 mcg/0.5mL dose or 50 mcg/0.25mL dose 1 completed Not Available [facility] 08/23/2023 18:31:33 Influenza, split virus, quadrivalent, preservative 9 completed Not Available [facility] 08/23/2023 18:31:33 Influenza, split virus, quadrivalent, preservative 7 completed Not Available [facility] 08/23/2023 18:31:33 Influenza, split virus, quadrivalent, preservative 8 completed Not Available [facility] 08/23/2023 18:31:33 zoster recombinant 2 completed Not Available [facility] 08/23/2023 18:31:33 Influenza, split virus, quadrivalent, PF 5 completed Not Available [facility] 08/03/2019 02:22:02 pneumococcal polysaccharide PPV23 5 completed Not Available [facility] 08/03/2019 02:21:42 COVID-19, mRNA, LNP-S, bivalent, PF, 50 mcg/0.5 mL or 25mcg/0.25 mL dose 2 completed Not Available [facility] 08/23/2023 18:31:33 Influenza, high-dose, quadrivalent, PF 2 completed Not Available [facility] 08/23/2023 18:31:33 Influenza, high-dose, quadrivalent, PF 3 completed Not Available [facility] 08/23/2023 18:31:33 COVID-19, mRNA, LNP-S, PF, 50 mcg/0.5 mL 3 completed Not Available [facility] 08/23/2023 18:31:33 Influenza, adjuvanted, quadrivalent, PF 0 completed Eleni Ryan LPN null, [facility] 10/12/2023 12:58:26 Influenza, high-dose, trivalent, PF 6 completed Eleni Ryan ELECTRONICS PROCESSING SUPERVISOR null, [facility] 10/12/2023 12:58:26 Influenza, high-dose, trivalent, PF 5 completed Salina perales, [facility] 08/12/2024 12:54:24 Influenza, split virus, trivalent, PF 4 completed Not Available [facility] 08/03/2019 02:21:57 Influenza, split virus, trivalent, preservative 6 completed Not Available [facility] 08/23/2023 18:31:34 Influenza, split virus, trivalent, preservative 7 completed Not Available [facility] 08/23/2023 18:31:34 Influenza, split virus, trivalent, preservative 8 completed Not Available [facility] 08/23/2023 18:31:34 Tdap 1 completed Not Available [facility] 08/23/2023 18:31:33 Influenza, split virus, trivalent, preservative 1 completed Not Available [facility] 08/23/2023 18:31:33 Influenza, split virus, trivalent, preservative 2 completed Not Available [facility] 08/23/2023 18:31:33 influenza, seasonal, intradermal, preservative free 3 completed Not Available [facility] 08/23/2023 18:31:34 Past Encounters Encounter ID Performer Location Encounter Start Date Encounter Closed Date Diagnosis/Indication Diagnosis SNOMED-CT Code Diagnosis ICD10 Code Diagnosis IMO Codes Diagnosis Note [id number] [facility] [address] [facility],[address] [place] [address] 04/18/2007 00:00:00 [id number] [facility] er[facility] [address] [facility],[address] [place] [address] 04/18/2007 00:00:00 [id number] [facility] erce [address] [facility],[address] [place] [address] 04/18/2007 00:00:00 [id number] [facility] [facility] [address] [facility],[address] [place] [address] 05/29/2007 00:00:00 [id number] [facility] erce [address] [facility],[address] [place] [address] 08/20/2008 00:00:00 [id number] [facility] [address] [place] [address] 08/20/2008 00:00:00 [id number] auto[facility] erce [address] [place] [address] 08/20/2008 00:00:00 [id number] auto[facility] erce [address] [place] [address] 08/26/2009 00:00:00 [id number] [facility] erce [address] [place] [address] 06/12/2010 00:00:00 [id number] [facility] [facility]ce [address] [place] [address] 06/12/2010 00:00:00 [id number] [facility] [facility] [address] [place] [address] 08/26/2010 00:00:00 [id number] [facility] [facility] [address] [place] [address] 08/26/2010 00:00:00 [id number] auto[facility] erce [address] [place] [address] 08/26/2010 00:00:00 [id number] auto[facility] erce [address] [place] [address] 10/06/2010 00:00:00 [id number] [facility] [address] [place] [address] 12/06/2010 00:00:00 [id number] auto[facility] erce [address] [place] [address] 12/06/2010 00:00:00 [id number] auto[facility] [facility]ce [address] [place] [address] 01/27/2011 00:00:00 [id number] [facility] [facility]ce [address] [place] [address] 01/27/2011 00:00:00 [id number] [facility] [facility] [address] [place] [address] 03/22/2011 00:00:00 [id number] auto[facility] erce [address] [place] [address] 03/22/2011 00:00:00 [id number] auto[facility] erce [address] [place] [address] 05/09/2011 00:00:00 [id number] auto[facility]Comm erce [address] [place] [address] 05/09/2011 00:00:00 [id number] auto[facility]Comm erce [address] [place] [address] 09/13/2011 00:00:00 [id number] auto[facility] erce [address] [place] [address] 09/13/2011 00:00:00 [id number] [facility] erce [address] [place] [address] 07/30/2012 00:00:00 [id number] auto[facility]Comm erce [address] [place] [address] 07/30/2012 00:00:00 [id number] auto[facility]Comm erce [address] [place] [address] 07/30/2012 00:00:00 [id number] auto[facility] erce [address] [place] [address] 07/30/2012 00:00:00 [id number] [facility] erce [address] [place] [address] 09/17/2012 00:00:00 [id number] [facility] erce [address] [place] [address] 09/17/2012 00:00:00 [id number] [facility] erce [address] [place] [address] 09/17/2012 00:00:00 [id number] auto[facility] erce [address] [facility],[address] [place] [address] 03/25/2013 00:00:00 [id number] [facility]Comm erce [address] [facility] [place] [address] 03/25/2013 00:00:00 [id number] [facility] erce [address] [facility] [place] [address] 11/21/2013 00:00:00 [id number] auto[facility]Comm erce [address] [facility] [place] [address] 11/21/2013 00:00:00 [id number] [facility] erce [address] [facility],[address] [place] [address] 11/21/2013 00:00:00 [id number] Praveen Morris MD Main Office [address] [facility] [address] [place] [address] 05/20/2014 09:07:23 05/20/2014 09:59:30 Essential hypertension [id number] Needs infl uenza immunization [id number] Impotence [id number] Hydrocele 07155364 Low back pain 089942379 Pain of wrist region 44679825 Knee pain 89621606 Tinea pedis [id number] Richard Tripathi MD Main Office [address] [address] [place], [place] [address] 08/28/2014 12:59:40 08/28/2014 13:33:22 Low back strain [id number] IRINEO Ruiz Main Office [address] [address] [place] [address] 10/03/2014 13:25:55 10/03/2014 14:05:11 Acute sinusitis 55113746 he is likely fine on current augmentin dose but since pt wants to do more instead of changing abx as requested we can increase his augmentin dose. it is possible that he has a partially resistant strep pneumonia that will get full coverage at higher dose. also afrin max 4 days. continue sinus rinse. Cough 44509190 Essential hypertension 26202634 cannot use sudafed with the htn [id number] Praveen Morris MD Main Office [address] [address] [place] [address] 12/09/2014 10:06:49 12/09/2014 11:25:43 Tinea pedis 6071810 Essential hypertension 31736392 Adult [facility] th examination [id number] Praveen Morris MD Main Office [address] [place] [address] [place] [address] 06/15/2015 09:07:59 06/15/2015 09:50:58 Essential hypertension 02622070 I10 white-coat HTN; usually running below 140 systolic at home. Needs infl uenza immunization 188363450 Z23 Administra tion of pneumococcal vaccine 00322874 Z23 Varicella vaccination 68 032833 Z23 Carpal devin dylan syndrome 26265622 G56.00 he feels that he has carpal tunnel in both hands since doing work on his house/chris o. He will try exercises and rest and if it persists he will call for an appointmen t with Dr Raman. [id number] Praveen Morris MD Main Office [address] [place] [address] [place] [address] 10/22/2015 12:46:03 10/22/2015 13:45:12 Cough 85768030 R05 post-viral cough; no role for abx. He will call next week after completing the medrol dose-pack. [id number] Praveen Morris MD Main Office [address] [address] [place] [address] 12/15/2015 09:16:27 12/15/2015 10:22:56 Adult health examination 802145223 Z00.00 Essential hypertension 20723460 I10 white-coat HTN; usually running below 140 systolic at home. Varicella vaccination 68 351286 Z23 [id number] Praveen Morris MD Main Office [address] [address] [place] [address] 06/15/2016 09:32:45 06/15/2016 10:17:48 Essential hypertension 51457780 I10 White coat HTN. We will not make any changes Influenza vaccine needed 2785495314 106 Z23 Hyperglycemia 30829269 R 73.9 Sugars often running high. He has a fhx of diabetes on wv mothers side. He will try to lose weight and increase his exercise. Varicella vaccination 68 431310 Z23 Skin lesion 86875227 L98 .9 Had 2 lesions treated on his scalp at [facility]. Knee pain 10453021 M25.5 61 Will be scheduling surgery with [facility] or at [facility] for knee replacemen t. [id number] Praveen Morris MD Main Office [address] [facility] [address] [place] [address] 12/16/2016 10:17:08 12/16/2016 11:24:11 Adult health examination 655477691 Z00.00 He is due for a prevnar and shingles vaccine and was given scripts to get these done at his pharmacy. He is UTD with colonoscop y. Varicella vaccination 68 677444 Z23 Nocturia 537905857 R35.1 Probable BPH with obstructio n interferin g with his sleep. He will consider starting meds. Essential hypertension 01737039 I10 Much better today; continue current mgmt. Hyperglycemia 95683008 R 73.9 Sugars often running high. He has a fhx of diabetes on wv mothers side. He will try to lose weight and increase his exercise. Administra tion of pneumococcal vaccine 32109005 Z23 [id number] Praveen Morris MD Main Office [address] [address] 06/20/2017 09:12:18 06/20/2017 09:52:48 Essential hypertension 47427133 I10 Much better today; continue current mgmt. Nocturia 907468568 R35.1 Knee pain 41218303 M25.5 61 Still not ready for surgical replacemen t. Followed by [facility] and receiving cortisone every 6 months. Carpal devin dylan syndrome 35785746 G56.[address] Raman. Left hand is better and right hand is still a problem. [id number] Praveen Morris MD Main Office [address] [facility] [address] [place] [address] 10/03/2017 16:08:00 10/03/2017 16:53:31 Acute sinusitis 48407723 J01.90 He may get 2 episodes a year despite using a nasal and an anti-hista mine [id number] Praveen Morris MD Main Office [address] [place] [address] 12/20/2017 09:23:01 12/20/2017 10:20:58 Adult health examination 801109432 Z00.00 He was advised to get the new shingles vaccine and he is UTD with other vaccines. He is UTD with colonoscop y and due again in 2020. Nocturia 150414177 R35.1 He will try taking his flomax qod Low back pain 451580438 M54.5 Has an appointmen t with [facility] [id number] Praveen Morris MD Main Office [address] [place] [address] 06/26/2018 09:23:49 06/26/2018 10:01:26 Essential hypertension 91962379 I10 Much better today; continue current mgmt. We will decrease his dose because of lightheade dness and he will follow his BP Low back pain 615654334 M54.5 Has an appointmen t with [facility] Carpal devin dylan syndrome 85075694 G56.[address] Raman. Scheduled for surgery 07/20/18 [id number] Praveen Morris MD Main Office [address] [address] 12/25/2018 09:42:32 12/25/2018 10:30:24 Adult health examination 993319827 Z00.00 He was advised to get the new shingles vaccine second dose and he is UTD with other vaccines. He is UTD with colonoscop y and due again in 2020. Essential hypertension 41474267 I10 BP high today but normal at home. He will follow and call if it is consistent ly high. Benign pro static hyperplasia with outflow obstruction 132019734 N40.1 on meds Hyperlipidemia 59608996 E78.5 [id number] Praveen Morris MD Main Office [address] [place] [address] 06/26/2019 16:25:56 06/26/2019 17:11:26 Essential hypertension 51984744 I10 BP high today but normal at home. He will follow and call if it is consistent ly high. Acute sinusitis 23609608 J01.90 He may get 2 episodes a year despite using a nasal and an anti-hista mine Osteoarthritis 614737417 M19.90 [id number] Praveen Morris MD [facility] 3640 [facility] 207 [facility] [place] [address] 01/06/2020 07:15:28 01/06/2020 12:26:08 Adult health examination 302642960 Z00.00 He was advised to get the new shingles vaccine second dose and he is UTD with other vaccines. He is due for a colonoscop y this year and will schedule his own appointmen t. Essential hypertension 53599885 I10 Continue current mgmt. Benign pro static hyperplasia with outflow obstruction 139454963 N40.1 on meds; will check PSA. Knee pain 96654904 M25.5 61 Followed by [facility] and scheduled for a knee replacemen t Apr [address] Mccormack. Low back pain 038424837 M54.5 Has an appointmen t with [facility]. Injections help. [id number] Praveen Morris MD Main Office [address] [facility] 207 [place] [address] 02/24/2020 10:23:46 02/26/2020 07:47:37 [id number] Richard Tripathi MD Main Office [address] [facility] 207 [place] [address] 04/17/2020 10:29:37 04/17/2020 11:54:13 Pre-surgery evaluation 267441246 Z01.818 Pre-op clearance is pending improvemen t in BP control. Pt. has past h/o labile HTN and with some low BP and orthostasi s. So, we will increase very gradually to amlodipine at 7.5 mg and continue daily testing. F/u by PCP in 3-4 days with his home BP readings. Essential hypertension 16270913 I10 continue losartan , increase amlodipine to 7.5 mg. He appears very anxious during the visit. 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 [id number] Praveen Morris MD [address] [place] [address] [address] [place] [address] 04/20/2020 08:38:47 04/21/2020 08:27:04 Essential hypertension 65265256 I10 Continue current mgmt. He will follow his BP and if it goes too low or he develops SE's he will decrease the dose and call us. [id number] Praveen Morris MD Main Office [address] [address] [place] [address] 07/07/2020 11:38:47 07/07/2020 12:12:16 Essential hypertension 65796116 I10 Continue current mgmt. He will follow his BP at home. 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 [id number] Praveen Morris MD [facility] [address] [address] [place] [address] 08/17/2020 13:02:01 08/18/2020 08:24:28 Essential hypertension 74673310 I10 Continue current mgmt. He will follow his BP at home. He restarted amlodipine but at a low dose. he will increase it if his BP goes up. Rivers's esophagus 3029 [address] Hollins and had an EGD done last year showing Rivers's w/o dysplasia. [id number] Praveen Morris MD Main Office [address] [address] [place] [address] 01/06/2021 10:17:11 01/06/2021 11:27:38 Adult health examination 310190619 Z00.00 He is UTD with immunizati ons including the COVID vaccine. He states that he had a colonoscop y done last year by Dr Hollins but we do not have a copy of it. Essential hypertension 43324502 I10 Continue current mgmt. BP under good control. Benign pro static hyperplasia with outflow obstruction 838860451 N40.1 on meds; will check PSA. Low back pain 895277703 M54.5 Gets injections from [facility] which give some help but this has been a limiting pain for him. [id number] Praveen Morris MD Main Office [address] [address] [place] [address] 07/05/2021 13:47:23 07/05/2021 14:46:23 Essential hypertension 78805357 I10 Continue current mgmt. BP under good control. Benign pro static hyperplasia with outflow obstruction 446838932 N40.1 He is not currently on meds. He will try saw palmetto for a couple of months and if no help we will discuss starting prescripti on meds. Supraventr icular tachycardia 4262449 I47.1 Followed by cardiology and w/o symptoms. [id number] Praveen Morris MD Main Office [address] [address] [place] [address] 01/10/2022 10:57:22 01/10/2022 11:59:33 Adult health examination 998014215 Z00.00 He is UTD with immunizati ons including the COVID vaccine. He states that he had a colonoscop y done last year by Dr Hollins but we do not have a copy of it. Supraventr icular tachycardia 9709054 I47.1 Followed by cardiology and w/o symptoms. Benign pro static hyperplasia with outflow obstruction 813979730 N40.1 He is not currently on meds. He will try saw palmetto for a couple of months and if no help we will discuss starting prescripti on meds. Essential hypertension 40279532 I10 Continue current mgmt. BP under good control. [id number] Praveen Morris MD Main Office [address] [address] [place] [address] 04/18/2022 09:49:11 04/18/2022 13:33:36 [id number] Praveen Morris MD Main Office [address] [address] [place] [address] 06/16/2022 11:19:56 06/16/2022 12:04:20 Localized eruption of skin 937849830 R21 Possible Lyme disease vs tinea corporis. Will get labs but hold off on abx. Fatigue 84320279 R53.83 Possibly from deconditio carley secondary to recent knee replacemen t surgery. [id number] Praveen Morris MD Main Office [address] [address] [place] [address] 07/26/2022 11:23:43 07/26/2022 12:01:25 Essential hypertension 60138502 I10 Continue current mgmt. BP under good control. Pain of le ft knee joint 7534267817 40747 M25.562 s/p surgery and PT 3-4 months ago but still with pain and swelling. He is starting with a personal lines agent tomorrow who has been in touch with his PT. Low back pain 285384285 M54.50 He had a nerve block done yesterday by [facility] and has a f/u with them in a couple of weeks. Gastroesop hageal reflux disease 570297746 K21.9 Has Rivers's esophagus and on omeprazole . [id number] Jordan Aburto MD [address] [place] [address] 08/23/2022 12:37:52 08/23/2022 14:09:09 Counseling 952921148 Z71.9 Health advice, education or counseling done for COVID 19 Dyspnea 159970838 R06.00 COVID-19 960244182 U07.1 cont otc meds (prn tyl, robitussin ) as dir, cont self-isola tion, cont push fluid intake, rest, consider extra vit D for a few days to help boost immune system advised pt only to go to ER if significan t sob where may need to be admitted, o/w avoid going to hospital if at all possible [id number] Praveen Morris MD [address] [address] [place] [address] 09/01/2022 13:27:44 09/01/2022 15:17:34 Acute sinusitis 19835624 J01.90 He gets frequent sinus infections . He understand s that this may be COVID rebound but I will prescribe a zpack since he is going away which may or may not help. He will continue with a nasal spray and anti-hista mine. [id number] Praveen Morris MD Main Office [address] [place] [address] 01/24/2023 09:58:42 01/24/2023 10:51:21 Adult health examination 685854863 Z00.00 He is UTD with immunizati ons including the COVID vaccine. He had a colonoscop y in [address] Hollins and is due again in 2030. Supraventr icular tachycardia 3373945 I47.1 Followed by cardiology and w/o symptoms. Essential hypertension 90124812 I10 Continue current mgmt. BP under good control. Benign pro static hyperplasia with outflow obstruction 651363799 N40.1 He is taking both saw palmetto and tamsulosin and his symptoms have improved. Rivers's esophagus 3029 [address]22[address] Hollins and had an EGD done last year showing Rivers's w/o dysplasia. Gastroesop hageal reflux disease 358197772 K21.9 Has Rivers's esophagus and on omeprazole . Advance care planning 71 6813238 Z71.89 Discussed HCP and MOLST and forms given. [id number] Jordan Aburto MD [facility] [address] [facility] 207 [facility] [place] [address] 07/28/2023 08:42:17 07/28/2023 10:03:45 Acute sinusitis 30200980 J01.90 Second sickening as well as duration and quality of symptoms raises concern for secondary bacterial process. Will cover with doxy and consider adding course of steroid if not improving over the next 3-5 days. Advised of common/ser ious potential side effects and to call with any problems. [id number] Praveen Morris MD Main Office [address] [facility] 207 [facility] [place] [address] 08/10/2023 11:04:32 08/10/2023 12:08:38 Essential hypertension 33069130 I10 Continue current mgmt. BP under good control. Low back pain 552136546 M54.50 He had a nerve block done by [facility] which helped but has returned. He is scheduled for an MRI next week and possibly a second nerve block. Arthritis of joint of right shoulder region 9891329228 03346 M13.811 He is followed by Dr Harris and is holding off on getting a shoulder replacemen t surgery which he is sure is in his future. [id number] Praveen Morris MD Main Office [address] [facility] [address] [place] [address] 10/06/2023 08:25:29 10/06/2023 09:03:46 [id number] Praveen Morris MD [facility] 36[address] [facility] [address] [place] [address] 10/12/2023 12:31:33 10/12/2023 16:24:33 Atrial fibrillation 22803356 I48.91 He is asymptomat ic and has a cardiology appointmen t next week. Duodenal perforation 270 678924 K26.5 This has improved after bowel rest. Back to a normal diet. His pain is minimal and helped with tylenol. Transition of care 88127 00569 105 Z75.8 [id number] Praveen Morris MD Main Office [address] [address] [place] [address] 11/27/2023 09:59:54 11/27/2023 13:57:13 [id number] Praveen Morris MD Main Office [address] [facility] 207 [place] [address] 02/08/2024 13:07:07 02/08/2024 13:59:06 Adult health examination 964346382 Z00.00 He is UTD with immunizati ons including the COVID vaccine. He had a colonoscop y in [address] Hollins and is due again in 2030. Essential hypertension 74809863 I10 Continue current mgmt. BP under good control. Nocturia 410061242 R35.1 Helped by tamsulosin . Low back pain 041234473 M54.50 He had a nerve block done by [facility] which helped but has returned. He is scheduled for an MRI next week and possibly a second nerve block. Arthritis of joint of right shoulder region 2229004562 62442 M13.811 He is followed by Dr Harris and is holding off on getting a shoulder replacemen t surgery which he is sure is in his future. Benign pro static hyperplasia with outflow obstruction 354322694 N40.1 He is taking both saw palmetto and tamsulosin and his symptoms have improved. Congestive heart failure 61076966 I50.9 Paroxysmal atrial fibrillation 561853288 I48.0 Followed by cardiology . Scheduled for an ablation tomorrow. [id number] Praveen Morris MD Main Office [address] [facility] [address] [place] [address] 03/05/2024 10:46:02 03/05/2024 11:16:57 Cough 64931868 R05.9 Possible post-viral cough vs PND from allergies. He will use the flonase regularly. He does not need another course of abx since he has been on 2 courses over the last 4 weeks. [id number] Jordan Aburto MD [facility] [address] [address] [place] [address] 03/12/2024 14:55:47 03/12/2024 16:11:47 COVID-19 258808263 U07.1 cont otc meds (prn tyl, robitussin ) as dir, cont self-isola tion, cont push fluid intake, rest, consider extra vit D for a few days to help boost immune system advised pt only to go to ER if significan t sob where may need to be admitted, o/w avoid going to hospital if at all possible tolerated paxlovid last year, but now is on amiodarone - which is contraindi cated c paxlovidso will rx c molnupirav ir Counseling 786605052 Z71 .9 Health advice, education or counseling done for COVID 19 Dyspnea 838321032 R06.00 [id number] Praveen Morris MD Main Office [address] [address] [place] [address] 05/14/2024 11:32:01 05/14/2024 12:07:01 Cough 44816769 R05.9 Possible post-viral cough vs PND from allergies. He will use the flonase regularly. He does not need a course of abx. [id number] Praveen Morris MD Main Office [address] [facility] [address] [place] [address] 08/16/2024 10:38:46 08/16/2024 11:35:37 Essential hypertension 79542071 I10 Continue current mgmt. BP under good control. Congestive heart failure 32442013 I50.9 Followed by cardiology Paroxysmal atrial fibrillation 459570101 I48.0 Followed by cardiology . Had ablation January 2024. Spinal simeon nosis of lumbar region 30983400 M48.[address] Klein at [facility] June. Nocturia 869215830 R35.1 Helped by tamsulosin . [id number] Praveen Morris MD Main Office [address] [facility] [address] [facility] [place] [address] 12/05/2024 09:29:45 12/05/2024 10:18:01 Persistent cough 687232227 R05.3 363830 Possibly post-viral . Doubt bacterial infection but will get a CXR to r/o infiltrate . Lifetime non smoker so COPD is unlikely.. Alleries may also be playing a role. If persists will do a pulmonary referral. [id number] Praveen Morris MD Main Office [address] [facility] [address] [place] [address] 03/04/2025 13:40:09 03/04/2025 14:45:47 Adult health examination 709486164 Z00.00 He is UTD with immunizati ons including the COVID vaccine; last booster was April 2023.He had a colonoscop y in [address] Hollins and is due again in 2029.UTD w/flu, tetanus, pneumonia and shingles vaccines. Benign pro static hyperplasia with outflow obstruction 836243978 N40.1 He is taking both saw palmetto and tamsulosin and his symptoms have improved. Paroxysmal atrial fibrillation 677064862 I48.0 Followed by cardiology . Had ablation January 2024 and is scheduled for an additional ablation next month (Mar 2025). Essential hypertension 65098554 I10 Continue current mgmt. BP under good control. Advance care planning 71 2410568 Z71.89 037216 Discussed HCP and POLST and forms given. Congestive heart failure 84057347 I50.9 Followed by cardiology Rivers's esophagus 3029 [address] Hollins and had an EGD done last year (2023) showing Rivers's w/o dysplasia. Low back pain 249031885 M54.50 He had a nerve block done by [facility] which helped but has returned. He is scheduled for a minimally invasive procedure at [facility] April 2025. Spinal simeon nosis of lumbar region 05162364 M48.[address] injection [address] Klein at [facility] June. Chronic sinusitis 075280 00 J32.9 Due for a eustachian tube dilation tomorrow at [facility] Section Related Observation LastModified by Organization Detai ls LastModified Time None Recorded Concern Status LastModified by Organization Details LastModified Time None Recorded Advance Directives Directive Y: HCP Payers Insurance Date Sequence Insurance Name Policy Number Policy Corado Covered Member ID Corado Member ID Guarantor Name 03/03/2025 1 [place]IC[place]: [employer] Zia Killian Jr [id number] Zia Killian 07/28/[address] [facility] [employer] PLAN (HMO) [id number] Zia Killian [id number] Zia Killian 03/18/[address] [facility] HEALTH PLAN - PREFERRED (MEDICARE SUPPLEMENT) [id number] Zia Killian Jr [id number] Zia Killian Notes Date Note Type Note Provider Name and Address Organization Details Recorded Time 03/12/20 24 text/htm l Phone visit-tested + for COVID today 03/12/2024. Sx;runny nose, cough, sore throat requesting paxlovid had paxlovid last yr - tolerated well recently seen for sinusitis - rev note - resolved p pred, sxs free for 2 days, then above sxs started last night no do sw gargles yet - ST mildly better using tyl, zyrtec, pushing fluids also c/o fatigue no avelar, sob but has chest congestion Eben Verdugo PA-C [address] [address], [place], [phone], [facility] 03/12/2024 16:06:21 05/14/20 24 text/htm l ROS as noted in the HPI Had CIVD 12 weeks ago and mild symptoms which resolved after 10 days. He has had a dry cough ever since. Has seasonal allergies but this seems a little different since nasal congestion currently. Taking anti-histamine at bed which helps a little.. No f/c. No sinus pain/pressure. Feels a popping in his ears. Praveen Morris MD [address] [address], [place], [phone], [facility] 05/14/2024 12:33:07 08/16/19 25 text/htm l Hypertension F/UReported by PatientHPIFor associated symptoms, patient reportsno dizziness,no lightheadedness,no chest pain,no shortness of breath,no palpitations,no edema, andno calf pain with exertion. For lifestyle, patient reportsregular exerciseandlimiting/avoiding salt. For medications, patient reportstaking medications as directedandno side effects from medication.His BP readings have been normal at home which he will continue to follow.ROS as noted in the HPI He has CHF and afib both of which have been stable and he is followed by cardiology Has chronic low back pain with intermittent exacerbations. Had a nerve block done at [facility] with some help which has since worn off. He recently had a steroid injection done 6 weeks ago at [facility] and this has helped with his pain. Praveen Morris MD [address] [address], [place], [phone], [facility] 08/16/2024 18:01:44 12/06/19 25 text/htm l CoughReported by PatientHPIFor quality, patient reportsharsh. For severity, patient reportsworseningbut reportsmoderate. For timing, patient reportsworse. For context, patient reportsworse at night (especially when supine)but reportsnon-smoker. For associated symptoms, patient reportsheartburn (under control with ppi twice daily)andpost nasal dripbut reportsno fever,no chills, andno wheezing. For duration, patient reportsconstantandsymptoms lasting over 2 weeks(started end of august (3 months ago)). For modifying factors, patient reportsotc medication (dm and zyrtec).Went to Urgent Care last month and given a course of doxycycline for 1 week. No help.ROS as noted in the HPI Praveen Morris MD [address] [address], [place], [phone], [facility] 12/05/2024 10:57:05 03/04/20 25 text/htm l Medicare Annual Wellness VisitReported by PatientSocial/Behavioral HistoryFor fracture risk, patient reportshistory of fractures (right wrist 40 years ago roller skating). For diet and nutrition, patient reportshealthy dietanddiscussed vitamin and supplement use. For physical activity, patient reportsexercises on a regular basis (recumbent bike).Mental Status:For depression risk, patient reportsnever feels sad, empty, or tearful,no loss of interest in activities,no loss of energy,no feelings of worthlessness or guilt,no thoughts of suicide,no history of depression, andno history of mood disorders. For orientation, patient reportsno disorientation to time,no disorientation to date, andno disorientation to place. For concentration and memory, patient reportsno decreased concentrating ability,no memory lapses or loss, anddoes not forget words. For speech/motor difficulties, patient reportsno speech difficulties.Functional AbilityFor hearing, patient reportsloss of hearing in one ear only (left but not ready for hearing aid). For vision, patient reportsno vision problems. For activities of daily living, patient reportsable to bathe with limited or no assistance,able to contol urination and bowels,able to dress with limited or no assistance,able to feed self with limited or no assistance,able to get out of chair or bed with limited or no assistance,able to groom with limited or no assistance, andable to toilet with limited or no assistance. For instrumental activities of daily living, patient reportsable to do house work with limited or no assistance,able to grocery shop with limited or no assistance,able to manage medications with limited or no assistance,able to manage money with limited or no assistance,able to prepare meals with limited or no assistance, andable to use the phone with limited or no assistance. For falls risk assessment, patient reportsno frequent falls while walking. Saw pulmonary Dr Segundo at [facility]. SOB and cough and PFT's ordered. Saw ENT, Dr [place] and he is scheduled for a left eustachian tube dilation 03/05/25 and if successful will then do the right. Seeing [facility] and having a minimally invasive procedure at lumbar spine to help with pain on 05/13/[address] Raman for finger OA right ring and baby finger and right wrist. Scheduled for an ablation 9/19/25 for his afib with Dr Aguilar. Had it done last year and now back in afib a quarter of the time. He will have a CT done first. Seeing Dr Mccormack at [facility] for his right knee last surgery done in 2019. He felt a pop and an xray was okay. He may need repeat surgery. Ledy perales [facility] 03/18/2025 13:26:28
--- OUTSIDE RECORDS SUMMARY | 2025-05-15 13:05 | XMS_ITS | Encounter Summary ---
Author Organization [facility] Address [address] [place] [address] Care Team Providers Care Drug Abuse Worker Name Role Phone Justin Morris MD Primary Care Provider [phone] Diogenes Cai MD Unavailable [phone] Encounter Details Date Type Department Care Team (Late st Contact Info) Description 02/28/2025 Scanned Document [facility] [address] [place] [address] Jevon Vo MD [address] [place] [address] Social History Tobacco Use Types Packs/Day [...] Description 07/29/2025 10:45 AM EST Office Visit [facility] [address] [facility] [place] [address] Jevon Vo MD [address] [place] [address] documented as of this encounter Visit Diagnoses Not on filedocumented in this encounter Care Teams Drug Abuse Worker Relationship Specialty Start Date End Date Justin Morris MD [facility] [address] [place] [address] PCP - General Internal Medicine 06/25/24 Diogenes Cai MD 3300 [facility] 2 [place] [address] Internal Medicine 02/21/25 documented as of this encounter
--- OUTSIDE RECORDS SUMMARY | 2025-05-15 13:05 | XMS_ITS | Encounter Summary ---
Author Organization [facility] Address [address] [place] [address] Care Team Providers Care Pin Feather Machine Operator Name Role Phone Justin Morris MD Primary Care Provider [phone] Diogenes Cai MD Unavailable [phone] Encounter Details Date Type Department Care Team (Late st Contact Info) Description 07/28/2024 Scanned Document [facility] [address] [place] [address] Jevon Vo MD [address] [place] [address] Social History Tobacco Use Types Packs/Day [...] Description 07/29/2025 10:45 AM EST Office Visit [facility] [address] [facility] [place] [address] Jevon Vo MD [address] [place] [address] documented as of this encounter Visit Diagnoses Not on filedocumented in this encounter Care Teams Pin Feather Machine Operator Relationship Specialty Start Date End Date Justin Morris MD 3640 [facility] 207 [place] [address] PCP - General Internal Medicine 06/25/24 Diogenes Cai MD 3300 [facility] 2 [place] [address] Internal Medicine 02/21/25 documented as of this encounter
== END 2025-05-15 10:38 | disposition home or self-care (01) ==
LOC: HO.RESP 10:37
PROVIDERS: PCP Internal Medicine; Visit Provider Nurse Practitioner Family
DX: R05.3 Chronic cough (principal)
CPT/HCPCS: 94060; 94640; 94727; 94729

== ENCOUNTER → 2025-05-15 10:49 | Outpatient (BNV) | payer MEDICARE, SELFPAY | PROVIDERS: PCP Internal Medicine; Visit Provider Internal Medicine Pulmonary Disease | DX: R05.3 Chronic cough (principal) | CPT/HCPCS: 94060; 94727; 94729 ==

== ENCOUNTER 2025-05-21 10:59 | Outpatient (AMB) | payer MEDICARE, SELFPAY ==
[2025-05-21 11:00] VITALS: BP 120/74; PULSE 57; O2SAT 97; BMI 30.8
--- NOTE | 2025-05-21 11:00 | MHC.OFFVIS ---
Vital Signs 05/21/25 11:00 Height 5 ft 10.5 in Weight 217 lb 8 oz BMI 30.8 BP 120/74 Blood Pressure Location Rt brachial Position Sitting Pulse 57 Pulse Source Pulse Oximeter Pulse Oximetry (%) 97 Oxygen Delivery Method Room Air Intake Visit Reasons: Cough/PFT Follow Up Allergies No Known Allergies Allergy (Verified 05/21/25 11:03) HPI HPI Cough/PFT Follow Up: Details: Zia is a pleasant 75 year old male, never smoker, with underlying CHF, Afib on Eliquis, GERD and SVT. He was initially referred by PCP for pulmonary evaluation for chronic cough and associated respiratory symptoms. Since the last visit he reports overall improvements in the cough with the use of nasal sprays prescribed by ENT. He denies wheezing or chest tightness however does report dyspnea on moderate exertion. Today he presents to review PFT results. He denies any visits to urgent care or hospitalizations related to respiratory distress. [facility] Social History Patient Tobacco Use Status: Never used Tobacco Review of Systems Const Denies chills, Denies excessive sweating, Denies fever(s), Denies headache(s) and Denies night sweats Eyes Denies dry eyes, Denies irritation and Denies itchy eyes ENT Reports Normal hearing present, Denies headache(s), Denies nasal congestion, Denies nasal discharge, Denies post nasal drip and Denies sore throat Card Denies chest pain, Denies chest pain at rest, Denies chest pain with activity, Denies claudication, Denies leg edema, Denies orthopnea and Denies paroxysmal nocturnal dyspnea Resp Denies chest congestion, Denies cough, Denies excessive phlegm production, Denies pain on inspiration, Denies pain with cough, Denies stridor and Denies wheezing Musc Denies myalgias Neuro Reports Normal hearing present and Denies headache(s) Endo Denies excessive sweating Zi/Lymph Denies lymphadenopathy Aller/Immun Denies itchy eyes, Denies seasonal rhinorrhea and Denies wheezing Physical Exam Vital Signs: Last Vital Signs Pulse 57 05/21/25 11:00 BP 120/74 05/21/25 11:00 Pulse Ox 97 05/21/25 11:00 Oxygen Delivery Method Room Air 05/21/25 11:00 BMI result Body Mass Index 30.8 Const General: cooperative, healthy appearing, comfortable, no acute distress, well developed and alert Nutritional Appearance: obese Orientation/consciousness: patient oriented x3 Limitations: no limitations HEENT Head: Yes normal to inspection, Yes normocephalic and Yes atraumatic Ears: hearing grossly normal bilaterally and external ears normal Eyes General: appearance normal, both eyes and all related structures Eyelids: Yes eyelids normal Sclerae: sclerae normal EOM: EOMs intact bilaterally Neck Neck: Yes normal visual inspection and Yes no lymphadenopathy Lymphatic: no lymphadenopathy noted Chest Chest palpation & inspection: normal inspection of the chest Resp Effort & Inspection: normal respiratory effort, able to speak in complete sentences, no audible wheezes, no cough, no stridor, not tachypneic, no tripod positioning and no use of accessory muscles Auscultation: clear to auscultation bilaterally Cardio Jugular venous distension: no JVD Rate: regular rate Skin Other: warm, dry General skin exam: no rashes or lesions noted Neuro General: patient oriented x3 Cranial nerves: Yes Normal hearing present Cognition (Neuro): normal cognition Gait exam (Neuro): Normal gait present Extrem General: Yes normal to inspection, Yes capillary refill normal, Yes no clubbing, cyanosis or edema and Yes no pedal edema Psych Appearance: grossly normal and well kempt Speech and movement: Normal speech and movement present and Clear speech present Affect: normal affect Attitude: cooperative Thought process: Normal thought process present Thought content: Normal thought content present Insight: Good insight present (Psych) Judgement: Good judgement present (Psych) Assessment & Plan Assessment & Plan (1) Asthma: Code(s): J45.909 - Unspecified asthma, uncomplicated Category: Medical (2) Chronic cough: Code(s): R05.3 - Chronic cough Category: Medical (3) Allergic rhinitis: Code(s): J30.9 - Allergic rhinitis, unspecified Category: Medical Plan Reviewed PFT which revealed mild obstructive defect, with no response to bronchodilators, lung volumes and DLCO WNL. Discussed trialing a daily inhaler which patient was agreeable to. Will send Symbicort, discussed importance of good oral hygiene to prevent thrush. All questions were answered and patient is in agreement of plan. Will follow up in 8-10 weeks or sooner if needed. Medications: New budesonide-formoterol 80-4.5 mcg/actuation (Symbicort) 2 puffs inhalation Q12H 10.2 grams 3RF J45.909 - Unspecified asthma, uncomplicated Coding Level of Care Code Est Pt Level 4 (96832) Diagnoses Asthma J45.909 Chronic cough R05.3 Allergic rhinitis J30.9
--- OUTSIDE RECORDS SUMMARY | 2025-05-21 13:03 | XMS_ITS | Encounter Summary ---
Author Organization [facility] Address [address] [place] [address] Care Team Providers Care Trestleman Name Role Phone Justin Morris MD Primary Care Provider [phone] Diogenes Cai MD Unavailable [phone] Encounter Details Date Type Department Care Team (Late st Contact Info) Description 02/27/2025 Scanned Document [facility] [address] [phone] Jevon Vo MD [address] [place] [address] Social History Tobacco Use Types Packs/Day [...] on filedocumented in this encounter Care Teams Trestleman Relationship Specialty Start Date End Date Justin Morris MD 3640 [facility] 207 [place] [address] PCP - General Internal Medicine 06/25/24 [place] [address] [place] [address] Internal Medicine 02/21/25 documented as of this encounter
--- OUTSIDE RECORDS SUMMARY | 2025-05-21 13:03 | XMS_ITS | Encounter Summary ---
Author Organization [facility] Address [address] [place] [address] Care Team Providers Care Transcriptionist Name Role Phone Justin Morris MD Primary Care Provider [phone] Diogenes Cai MD Unavailable [phone] Encounter Details Date Type Department Care Team (Late st Contact Info) Description 02/28/2025 Scanned Document [facility] [address] [phone] Jevon Vo MD [address] [id number] Social History Tobacco Use Types Packs/Day Years [...] on filedocumented in this encounter Care Teams Transcriptionist Relationship Specialty Start Date End Date Justin Morris MD 36[address] [facility] 207 [place] [address] PCP - General Internal Medicine 06/25/24 [place] [address] [place] [address] Internal Medicine 02/21/25 documented as of this encounter
--- OUTSIDE RECORDS SUMMARY | 2025-05-21 13:03 | XMS_ITS | Clinical Summary ---
Author Organization [employer] Address [address] [place] [address] Care Team Providers Care Graphic Design Professor Name Role Phone Justin Morris MD Primary Care Provider [phone] Allergies No known active allergies Medications celecoxib [...] Insurance MEDICARE [employer] Care Teams Graphic Design Professor Relationship Specialty Start Date End Date Justin Morris MD [address] [address] PCP - General 02/18/20
--- OUTSIDE RECORDS SUMMARY | 2025-05-21 13:03 | XMS_ITS | Encounter Summary ---
Author Organization [facility] Address [address] [place] [address] Care Team Providers Care Wax Molder Name Role Phone Justin Morris MD Primary Care Provider [phone] Encounter Details Date Type Department Care Team (Late st Contact Info) Description 02/18/2020 Procedure Pass [facility] Radiology, [facility] (CT Scan) [address] [place] [address] Social History Tobacco Use Types Packs/Day Years [...] on filedocumented in this encounter Care Teams Wax Molder Relationship Specialty Start Date End Date Justin Morris MD [address] [address] PCP - General 02/18/20 documented as of this encounter
--- OUTSIDE RECORDS SUMMARY | 2025-05-21 13:03 | XMS_ITS | Clinical Summary ---
Author Organization [facility] Address [address] [place] [address] Care Team Providers Care Beet Flumer Name Role Phone Justin Morris MD Primary Care Provider [phone] Diogenes Cai MD Unavailable [phone] Allergies Active Allergy Reactions Criticality Noted [...] Encounters Date Type Department Care Team Description 03/27/2025 10:45 AM EDT Office Visit [facility] [address] [address] Jevon Vo MD Other abnormal auditory perceptions, right ear (Primary Dx); Dysfunction of left eustachian tube; Mixed conductive and sensorineural hearing loss of left ear with restricted hearing of right ear 03/05/2025 1:45 PM EDT Procedure visit [facility] [address] [address] Jevon Vo MD Dysfunction of left eustachian tube (Primary Dx); Mixed conductive and sensorineural hearing loss of left ear with restricted hearing of right ear 02/28/2025 Scanned Document [facility] [address] [place] [address] Jevon Vo MD 02/27/2025 Scanned Document [facility] [address] [place] [address] Jevon Vo MD from Last [...] 03/27/2025 10:44 AM EDT Plan of Treatment Health Maintenance Due [...] 1-dose 75+ series) 2025 COVID-19 Vaccine ( - season) 2025 05/02/2023, 03/31/2022, 05/14/2021, Additional history exists Hepatitis B Vaccines Aged Out No long er eligible based on patient's age to complete this topic Insurance MEDICARE PART A & B [facility] SUPPLEMENT ONLY SUPPLEMENT ONLY MEDICARE PART A & B Care Teams Beet Flumer Relationship Specialty Start Date End Date Justin Morris MD 3640 [facility] [address] [place] [address] PCP - General Internal Medicine 06/25/24 Diogenes Cai MD 3300 [facility] 2 [place] [address] Internal Medicine 02/21/25
--- OUTSIDE RECORDS SUMMARY | 2025-05-21 13:03 | XMS_ITS | Data Portability ---
Author Organization [facility], Main Office Address [address] [place] [address] Care Team Providers Care Vitamin Manager Name Role Phone PRAVEEN MORRIS Primary Care Provider [facility] ELIER HARRIS Orthopedic Surgeon [phone] SEPIDEH RAMAN Orthopedic Surgeon [phone] LORE HOLLINS Windows Desktop Support [phone] [place] [facility] Supervisor Pipe Manufacture [facility] (CENTRALIZED ELECTRO ILENE ORDERING - ALL LOCATIONS) Urologist ZIA DICKINSON Urologist CLARENCE MUNIZ Referring Provider [phone] RAMON CHEEMA Referring Provider [facility] CARDIOLOG[facility] PRACTICE Rate Setter [phone] [facility]MON[facility] Referring Pro vider ARTURO VO Referring Provider ELIER OCFFEY Referring Provider [phone] Assessment Encounter Date Assessment Date Assessment LastModified by Organization Details LastModified Time 03/12/2024 03/12/2024 This service was provided using telemedicine. Patient consented to video & audio visit Patient was located in the [facility]. Provider was located in the office. [...] DO Not Attach Compendium, Do Not Delete/merge, [id number] 12/05/2024 10:07:21 PSA, serum or plasma 2024 [...] Go To The Location Of Their Choice, [id number] 02/14/2025 03:11:07 magnesi um, serum or plasma 2024 025 [place] [facility] (Centralized Electronic Ordering - All Locations), Patient Can Go To The Location Of Their Choice, [id number] 02/14/2025 03:11:08 Referral physica l therapi st referra l - At risk for falling 2024 025 [email or web address] Not available 03/04/2025 14:45:47 Procedures None recorde d. Surgeries None recorde d. Imaging XR, chest, 2 view - Product krystin cough for 3 months; r/o infiltr ate. 2024 025 [place] In-Office Order, Internal Use Only DO Not Attach Compendium DO Not Attach Compendium, Do Not Delete/merge, [id number] 12/05/2024 16:26:21 Medication Orders prednis one 20 mg tablet 2024 025 [facility]acy #[id number], [address], [place], [address], 12/19/2024 05:01:12 benzona fonseca 200 mg capsule 2024 025 [facility] #[id number], [address], [place], [address], 12/22/2024 05:01:03 prednis one 20 mg tablet 2023 025 [facility] #0517, [address], [place], [address], 12/19/2024 05:01:12 flutica sone propion ate 50 mcg/act uation nasal spray,s uspensi on 2023 024 [email or web address] [facility]/Pharmacy #0517, [address], [place], [address], 12/05/2024 09:46:19 molnupi ravir 200 mg capsule (EUA) 2023 024 [facility] #4473, [address] [place], [address], 08/16/2024 11:03:46 albuter ol sulfate HFA 90 mcg/act uation aerosol inhaler 2023 024 [facility] #[id number], [address] [place], [address], 03/12/2024 16:04:24 Patient TargetsNo targets recorded. Patient Instructions Encounter Date Encounter Id Patient Instructions Last Modified By Organization Details Last Modified Time 03/12/2024 [id number] 10 things to do when you have covid-19 pmadden Not available 03/12/2024 16:04:22 COVID-19 FAQ pmadden Not available 16:04:21 10 things to do when you have covid-19 pmadden Not available 03/12/2024 16:04:22 Follow up if no improvement or if symptoms worsen. pmadden Not available 03/12/2024 16:05:34 08/16/2024 [id number] lumbar spinal stenosis: care instructions [email or web address] Not available 08/16/2024 11:25:07 high blood pressure: care instructions [email or web address] Not available 08/16/2024 11:20:52 learning about high blood pressure acennerazzo Not available 08/16/2024 11:20:52 heart failure: care instructions [email or web address] Not available 08/16/2024 11:22:17 learning about heart failure acennerazzo Not available 08/16/2024 11:22:17 03/04/2025 [id number] advance directives: care instructions [email or web address] Not available [...] /uL 3.4-10 .8 normal Not Available [facility] ([facility]) [address] [place], [address], 03/05/2024 08:09:25 03/04/20 24 03/04/2024 CBC WITH DIFFE RENTI AL/PL ATELE T RBC 4.97 x10e6 /uL 4.14-5 .80 normal Not Available [facility] ([facility]) [address] [place], [address], 03/05/2024 08:09:25 03/04/20 24 03/04/2024 CBC WITH DIFFE RENTI AL/PL ATELE T hemoglobin 16.2 g/dL 13.0-1 7.7 normal Not Available [facility] ([facility]) [address] [place], [address], 03/05/2024 08:09:25 03/04/20 24 03/04/2024 CBC WITH DIFFE RENTI AL/PL ATELE T hematocrit 48.0 % 37.5-5 1.0 normal Not Available [facility] ([facility]) [address] [place], [address], 03/05/2024 08:09:25 03/04/20 24 03/04/2024 CBC WITH DIFFE RENTI AL/PL ATELE T MCV 97 fL 79-97 normal Not Available [facility] ([facility]) [address] [place], [address], 03/05/2024 08:09:25 03/04/20 24 03/04/2024 CBC WITH DIFFE RENTI AL/PL ATELE T MCH 32.6 pg 26.6-3 3.0 normal Not Available [facility] ([facility]) [address] [place], [address], 03/05/2024 08:09:25 03/04/20 24 03/04/2024 CBC WITH DIFFE RENTI AL/PL ATELE T MCHC 33.8 g/dL 31.5-3 5.7 normal Not Available [facility] ([facility]) [address] [place], [address], 03/05/2024 08:09:25 03/04/20 24 03/04/2024 CBC WITH DIFFE RENTI AL/PL ATELE T RDW 12.3 % 11.6-1 5.4 Not Available [facility] ([facility]) [address] [place], [address], 03/05/2024 08:09:25 03/04/20 24 03/04/2024 CBC WITH DIFFE RENTI AL/PL ATELE T platelets 156 x10e3 /uL 150-45 0 normal Not Available [facility] ([facility]) [address] [facility], [place], [address], 03/05/2024 08:09:25 03/04/20 24 03/04/2024 CBC WITH DIFFE RENTI AL/PL ATELE T neutrophils 64 % not estab. normal Not Available [facility] ([facility]) [address] [facility], [place], [address], 03/05/2024 08:09:25 03/04/20 24 03/04/2024 CBC WITH DIFFE RENTI AL/PL ATELE T lymphs 22 % not estab. normal Not Available [facility] ([facility]) [address] [facility], [place], [address], 03/05/2024 08:09:25 03/04/20 24 03/04/2024 CBC WITH DIFFE RENTI AL/PL ATELE T monocytes 11 % not estab. normal Not Available [facility] ([facility]) [address] [place], [address], 03/05/2024 08:09:25 03/04/20 24 03/04/2024 CBC WITH DIFFE RENTI AL/PL ATELE T eos 1 % not estab. normal Not Available [facility] ([facility]) [address] [facility], [place], [address], 03/05/2024 08:09:25 03/04/20 24 03/04/2024 CBC WITH DIFFE RENTI AL/PL ATELE T basos 1 % not estab. normal Not Available [facility] ([facility]) [address] [place], [address], 03/05/2024 08:09:25 03/04/20 24 03/04/2024 CBC WITH DIFFE RENTI AL/PL ATELE T immature cells REPOSSESSION AGENT Not Available [facility] ([facility]) [address] [facility] [place], [address], 03/05/2024 08:09:25 03/04/20 24 03/04/2024 CBC WITH DIFFE RENTI AL/PL ATELE T neutrophils (absolute) 3.7 x10e3 /uL 1.4-7. 0 normal Not Available [facility] ([facility]) [address] [facility], [place], [address], 03/05/2024 08:09:25 03/04/20 24 03/04/2024 CBC WITH DIFFE RENTI AL/PL ATELE T lymphs (absolute) 1.2 x10e3 /uL 0.7-3. 1 normal Not Available [facility] ([facility]) [address] [facility], [place], [address], 03/05/2024 08:09:25 03/04/20 24 03/04/2024 CBC WITH DIFFE RENTI AL/PL ATELE T monocytes(ab solute) 0.6 x10e3 /uL 0.1-0. 9 normal Not Available [facility] ([facility]) [address] [place], [address], 03/05/2024 08:09:25 03/04/20 24 03/04/2024 CBC WITH DIFFE RENTI AL/PL ATELE T eos (absolute) 0.1 x10e3 /uL 0.0-0. 4 normal Not Available [facility] ([facility]) [address] [facility], [place], [address], 03/05/2024 08:09:25 03/04/20 24 03/04/2024 CBC WITH DIFFE RENTI AL/PL ATELE T baso (absolute) 0.0 x10e3 /uL 0.0-0. 2 normal Not Available [facility] ([facility]) [address] [facility], [place], [address], 03/05/2024 08:09:25 03/04/20 24 03/04/2024 CBC WITH DIFFE RENTI AL/PL ATELE T immature granulocytes 1 % not estab. Not Available [facility] ([facility]) [address] [facility], [place], [address], 03/05/2024 08:09:25 03/04/20 24 03/04/2024 CBC WITH DIFFE RENTI AL/PL ATELE T immature grans (abs) 0.0 x10e3 /uL 0.0-0. 1 Not Available [facility] ([facility]) [address] [facility], [place], [address], 03/05/2024 08:09:25 03/04/20 24 03/04/2024 CBC WITH DIFFE RENTI AL/PL ATELE T NRBC REPOSSESSION AGENT Not Available [facility] ([facility]) [address] [facility], [place], [address], 03/05/2024 08:09:25 03/04/20 24 03/04/2024 CBC WITH DIFFE RENTI AL/PL ATELE T hematology comments: REPOSSESSION AGENT Not Available [facility] ([facility]) [address] [facility], [place], [address], 03/05/2024 08:09:25 03/04/20 24 03/05/2024 COMP. METAB OLIC PANEL (14) glucose 98 mg/dL 70-99 normal Not Available [facility] ([facility]) [address] [facility], [place], [address], 03/05/2024 08:09:26 03/04/20 24 03/05/2024 COMP. METAB OLIC PANEL (14) BUN 17 mg/dL 8-27 normal Not Available [facility] ([facility]) [address] [facility], [place], [address], 03/05/2024 08:09:26 03/04/20 24 03/05/2024 COMP. METAB OLIC PANEL (14) creatinine 1.06 mg/dL 0.76-1 .27 normal Not Available [facility] ([facility]) [address] [facility], [place], [address], 03/05/2024 08:09:26 03/04/20 24 03/05/2024 COMP. METAB OLIC PANEL (14) eGFR 74 mL/mi n/1.7 3 >59 normal Not Available [facility] ([facility]) [address] [place], [address], 03/05/2024 08:09:26 03/04/20 24 03/05/2024 COMP. METAB OLIC PANEL (14) BUN/creatini ne ratio 16 10-24 normal Not Available [facility] ([facility]) [address] [place], [address], 03/05/2024 08:09:26 03/04/20 24 03/05/2024 COMP. METAB OLIC PANEL (14) sodium 141 mmol/ L 134-14 4 normal Not Available [facility] ([facility]) [address] [place], [address], 03/05/2024 08:09:26 03/04/20 24 03/05/2024 COMP. METAB OLIC PANEL (14) potassium 4.9 mmol/ L 3.5-5. 2 normal Not Available [facility] ([facility]) [address] [place], [address], 03/05/2024 08:09:26 03/04/20 24 03/05/2024 COMP. METAB OLIC PANEL (14) chloride 103 mmol/ L 96-106 normal Not Available [facility] ([facility]) [address] [place], [address], 03/05/2024 08:09:26 03/04/20 24 03/05/2024 COMP. METAB OLIC PANEL (14) carbon dioxide, total 21 mmol/ L 20-29 normal Not Available [facility] ([facility]) [address] [place], [address], 03/05/2024 08:09:26 03/04/20 24 03/05/2024 COMP. METAB OLIC PANEL (14) calcium 9.7 mg/dL 8.6-10 .2 normal Not Available [facility] ([facility]) [address] [facility] [place], [address], 03/05/2024 08:09:26 03/04/20 24 03/05/2024 COMP. METAB OLIC PANEL (14) protein, total 6.2 g/dL 6.0-8. 5 normal Not Available [facility] ([facility]) [address] [place], [address], 03/05/2024 08:09:26 03/04/20 24 03/05/2024 COMP. METAB OLIC PANEL (14) albumin 4.2 g/dL 3.8-4. 8 normal Not Available [facility] ([facility]) [address] [place], [address], 03/05/2024 08:09:26 03/04/20 24 03/05/2024 COMP. METAB OLIC PANEL (14) globulin, total 2.0 g/dL 1.5-4. 5 Not Available [facility] ([facility]) [address] [place], [address], 03/05/2024 08:09:26 03/04/20 24 03/05/2024 COMP. METAB OLIC PANEL (14) bilirubin, total 0.8 mg/dL 0.0-1. 2 normal Not Available [facility] ([facility]) [address] [facility] [place], [address], 03/05/2024 08:09:26 03/04/20 24 03/05/2024 COMP. METAB OLIC PANEL (14) alkaline phosphatase 91 IU/L 44-121 normal Not Available [facility] ([facility]) [address] [facility] [place], [address], 03/05/2024 08:09:26 03/04/20 24 03/05/2024 COMP. METAB OLIC PANEL (14) AST (SGOT) 17 IU/L 0-40 normal Not Available [facility] ([facility]) [address] [place], [address], 03/05/2024 08:09:26 03/04/20 24 03/05/2024 COMP. METAB OLIC PANEL (14) ALT (SGPT) 16 IU/L 0-44 normal Not Available [facility] ([facility]) [address] [place], [address], 03/05/2024 08:09:26 03/04/20 24 03/05/2024 LIPID PANEL cholesterol, total 220 mg/dL 100-19 9 above high normal Not Available [facility] ([facility]) [address] [place], [address], 03/05/2024 08:09:26 03/04/20 24 03/05/2024 LIPID PANEL triglyceride s 135 mg/dL 0-149 normal Not Available [facility] ([facility]) [address] [place], [address], 03/05/2024 08:09:26 03/04/20 24 03/05/2024 LIPID PANEL HDL cholesterol 64 mg/dL >39 normal Not Available [facility] [address] [place], [address], 03/05/2024 08:09:26 03/04/20 24 03/05/2024 LIPID PANEL VLDL cholesterol luciana 24 mg/dL 5-40 Not Available [facility] ([facility]) [address] [place], [address], 03/05/2024 08:09:26 03/04/20 24 03/05/2024 LIPID PANEL LDL chol calc ([facility]) 132 mg/dL 0-99 above high normal Not Available [facility] ([facility]) [address] [place], [address], 03/05/2024 08:09:26 03/04/20 24 03/05/2024 LIPID PANEL LDL calc comment: REPOSSESSION AGENT Not Available [facility] ([facility]) [address] [facility], [place], [address], 03/05/2024 08:09:26 03/04/20 24 03/04/2024 PSA TOTAL (REFL EX TO FREE) reflex criteria Commen t The perce nt free PSA is perfo rmed on a refle x basis only when the total PSA is betwe en 4.0 and 10.0 ng/mL . Not Available [facility] ([facility]) [address] [facility], [place], [address], 03/05/2024 08:09:27 03/04/20 24 03/05/2024 PSA TOTAL [...] of lonnie price se. Not Available [facility] ([facility]) [address] [facility], [place], [address], 03/05/2024 08:09:27 12/06/19 25 12/05/2024 rapid SARS CoV 2 Ag, QL IA, respi rator y speci men RAPID SARS COV 2 negati ve Not Available In-Office Order Internal Use Only DO Not Attach Compendium DO Not Attach Compendium, Do Not Delete/merge, [id number] 12/05/2024 09:48:14 03/06/20 25 03/06/2025 CMP14 +EGFR glucose 93 mg/dL 70-99 normal Not Available [facility] ([facility]) [address] [facility], [place], [address], 03/07/2025 06:07:55 03/06/20 25 03/06/2025 CMP14 +EGFR BUN 21 mg/dL 8-27 normal Not Available [facility] ([facility]) [address] [place], [address], 03/07/2025 06:07:55 03/06/20 25 03/06/2025 CMP14 +EGFR creatinine 0.97 mg/dL 0.76-1 .27 normal Not Available [facility] ([facility]) [address] [place], [address], 03/07/2025 06:07:55 03/06/20 25 03/06/2025 CMP14 +EGFR eGFR 81 mL/mi n/1.7 3 >59 normal Not Available [facility] ([facility]) [address] [facility], [place], [address], 03/07/2025 06:07:55 03/06/20 25 03/06/2025 CMP14 +EGFR BUN/creatini ne ratio 22 10-24 normal Not Available [facility] ([facility]) [address] [place], [address], 03/07/2025 06:07:55 03/06/20 25 03/06/2025 CMP14 +EGFR sodium 140 mmol/ L 134-14 4 normal Not Available [facility] ([facility]) [address] [place], [address], 03/07/2025 06:07:55 03/06/20 25 03/06/2025 CMP14 +EGFR potassium 4.6 mmol/ L 3.5-5. 2 normal Not Available [facility] ([facility]) [address] [place], [address], 03/07/2025 06:07:55 03/06/20 25 03/06/2025 CMP14 +EGFR chloride 105 mmol/ L 96-106 normal Not Available [facility] ([facility]) [address] [place], [address], 03/07/2025 06:07:55 03/06/20 25 03/06/2025 CMP14 +EGFR carbon dioxide, total 23 mmol/ L 20-29 normal Not Available [facility] ([facility]) [address] [place], [address], 03/07/2025 06:07:55 03/06/20 25 03/06/2025 CMP14 +EGFR calcium 9.4 mg/dL 8.6-10 .2 normal Not Available [facility] ([facility]) [address] [place], [address], 03/07/2025 06:07:55 03/06/20 25 03/06/2025 CMP14 +EGFR protein, total 5.9 g/dL 6.0-8. 5 below low normal Not Available [facility] ([facility]) [address] [place], [address], 03/07/2025 06:07:55 03/06/20 25 03/06/2025 CMP14 +EGFR albumin 4.1 g/dL 3.8-4. 8 normal Not Available [facility] ([facility]) [address] [place], [address], 03/07/2025 06:07:55 03/06/20 25 03/06/2025 CMP14 +EGFR globulin, total 1.8 g/dL 1.5-4. 5 Not Available [facility] ([facility]) [address] [place], [address], 03/07/2025 06:07:55 03/06/20 25 03/06/2025 CMP14 +EGFR bilirubin, total 0.7 mg/dL 0.0-1. 2 normal Not Available [facility] ([facility]) [address] [facility], [place], [address], 03/07/2025 06:07:55 03/06/20 25 03/06/2025 CMP14 +EGFR alkaline phosphatase 96 IU/L 44-121 normal Not Available [facility] ([facility]) [address] [facility], [place], [address], 03/07/2025 06:07:55 03/06/20 25 03/06/2025 CMP14 +EGFR ALT (SGPT) 11 IU/L 0-44 normal Not Available [facility] ([facility]) [address] [facility], [place], [address], 03/07/2025 06:07:55 03/06/20 25 03/07/2025 CMP14 +EGFR AST (SGOT) 15 IU/L 0-40 normal Not Available [facility] ([facility]) [address] [place], [address], 03/07/2025 06:07:55 03/06/20 25 03/06/2025 CBC WITH DIFFE RENTI AL/PL ATELE T WBC 7.0 x10e3 /uL 3.4-10 .8 normal Not Available [facility] ([facility]) [address] [place], [address], 03/07/2025 06:07:55 03/06/20 25 03/06/2025 CBC WITH DIFFE RENTI AL/PL ATELE T RBC 5.06 x10e6 /uL 4.14-5 .80 normal Not Available [facility] ([facility]) [address] [place], [address], 03/07/2025 06:07:55 03/06/20 25 03/06/2025 CBC WITH DIFFE RENTI AL/PL ATELE T hemoglobin 16.1 g/dL 13.0-1 7.7 normal Not Available [facility] ([facility]) [address] [place], [address], 03/07/2025 06:07:55 03/06/20 25 03/06/2025 CBC WITH DIFFE RENTI AL/PL ATELE T hematocrit 48.1 % 37.5-5 1.0 normal Not Available [facility] ([facility]) [address] [place], [address], 03/07/2025 06:07:55 03/06/20 25 03/06/2025 CBC WITH DIFFE RENTI AL/PL ATELE T MCV 95 fL 79-97 normal Not Available [facility] ([facility]) [address] [place], [address], 03/07/2025 06:07:55 03/06/20 25 03/06/2025 CBC WITH DIFFE RENTI AL/PL ATELE T MCH 31.8 pg 26.6-3 3.0 normal Not Available [facility] ([facility]) [address] [place], [address], 03/07/2025 06:07:55 03/06/20 25 03/06/2025 CBC WITH DIFFE RENTI AL/PL ATELE T MCHC 33.5 g/dL 31.5-3 5.7 normal Not Available [facility] ([facility]) [address] [place], [address], 03/07/2025 06:07:55 03/06/20 25 03/06/2025 CBC WITH DIFFE RENTI AL/PL ATELE T RDW 12.1 % 11.6-1 5.4 Not Available [facility] ([facility]) [address] [place], [address], 03/07/2025 06:07:55 03/06/20 25 03/06/2025 CBC WITH DIFFE RENTI AL/PL ATELE T platelets 157 x10e3 /uL 150-45 0 normal Not Available [facility] ([facility]) [address] [place], [address], 03/07/2025 06:07:55 03/06/20 25 03/06/2025 CBC WITH DIFFE RENTI AL/PL ATELE T neutrophils 67 % not estab. normal Not Available [facility] ([facility]) [address] [place], [address], 03/07/2025 06:07:55 03/06/20 25 03/06/2025 CBC WITH DIFFE RENTI AL/PL ATELE T lymphs 20 % not estab. normal Not Available [facility] ([facility]) [address] [place], [address], 03/07/2025 06:07:55 03/06/20 25 03/06/2025 CBC WITH DIFFE RENTI AL/PL ATELE T monocytes 10 % not estab. normal Not Available [facility] ([facility]) [address] [place], [address], 03/07/2025 06:07:55 03/06/20 25 03/06/2025 CBC WITH DIFFE RENTI AL/PL ATELE T eos 3 % not estab. normal Not Available [facility] ([facility]) [address] [place], [address], 03/07/2025 06:07:55 03/06/20 25 03/06/2025 CBC WITH DIFFE RENTI AL/PL ATELE T basos 0 % not estab. normal Not Available [facility] ([facility]) [address] [place], [address], 03/07/2025 06:07:55 03/06/20 25 03/06/2025 CBC WITH DIFFE RENTI AL/PL ATELE T immature cells REPOSSESSION AGENT Not Available [facility] ([facility]) [address] [place], [address], 03/07/2025 06:07:55 03/06/20 25 03/06/2025 CBC WITH DIFFE RENTI AL/PL ATELE T neutrophils (absolute) 4.6 x10e3 /uL 1.4-7. 0 normal Not Available [facility] ([facility]) [address] [facility], [place], [address], 03/07/2025 06:07:55 03/06/20 25 03/06/2025 CBC WITH DIFFE RENTI AL/PL ATELE T lymphs (absolute) 1.4 x10e3 /uL 0.7-3. 1 normal Not Available [facility] ([facility]) [address] [facility], [place], [address], 03/07/2025 06:07:55 03/06/20 25 03/06/2025 CBC WITH DIFFE RENTI AL/PL ATELE T monocytes(ab solute) 0.7 x10e3 /uL 0.1-0. 9 normal Not Available [facility] ([facility]) [address] [place], [address], 03/07/2025 06:07:55 03/06/20 25 03/06/2025 CBC WITH DIFFE RENTI AL/PL ATELE T eos (absolute) 0.2 x10e3 /uL 0.0-0. 4 normal Not Available [facility] ([facility]) [address] [facility], [place], [address], 03/07/2025 06:07:55 03/06/20 25 03/06/2025 CBC WITH DIFFE RENTI AL/PL ATELE T baso (absolute) 0.0 x10e3 /uL 0.0-0. 2 normal Not Available [facility] ([facility]) [address] [place], [address], 03/07/2025 06:07:55 03/06/20 25 03/06/2025 CBC WITH DIFFE RENTI AL/PL ATELE T immature granulocytes 0 % not estab. Not Available [facility] ([facility]) [address] [facility], [place], [address], 03/07/2025 06:07:55 03/06/20 25 03/06/2025 CBC WITH DIFFE RENTI AL/PL ATELE T immature grans (abs) 0.0 x10e3 /uL 0.0-0. 1 Not Available [facility] ([facility]) [address] [facility], [place], [address], 03/07/2025 06:07:55 03/06/20 25 03/06/2025 CBC WITH DIFFE RENTI AL/PL ATELE T NRBC REPOSSESSION AGENT Not Available [facility] ([facility]) [address] [facility], [place], [address], 03/07/2025 06:07:55 03/06/20 25 03/06/2025 CBC WITH DIFFE RENTI AL/PL ATELE T hematology comments: REPOSSESSION AGENT Not Available [facility] ([facility]) [address] [facility], [place], [address], 03/07/2025 06:07:55 03/06/20 25 03/06/2025 LIPID PANEL cholesterol, total 178 mg/dL 100-19 9 normal Not Available [facility] ([facility]) [address] [place], [address], 03/07/2025 06:07:56 03/06/20 25 03/06/2025 LIPID PANEL triglyceride s 101 mg/dL 0-149 normal Not Available [facility] ([facility]) [address] [place], [address], 03/07/2025 06:07:56 03/06/20 25 03/06/2025 LIPID PANEL HDL cholesterol 46 mg/dL >39 normal Not Available [facility] [address] [place], [address], 03/07/2025 06:07:56 03/06/20 25 03/06/2025 LIPID PANEL VLDL cholesterol luciana 18 mg/dL 5-40 Not Available [facility] ([facility]) [address] [place], [address], 03/07/2025 06:07:56 03/06/20 25 03/06/2025 LIPID PANEL LDL chol calc ([facility]) 114 mg/dL 0-99 above high normal Not Available [facility] ([facility]) [address] [place], [address], 03/07/2025 06:07:56 03/06/2003/06/2025 LIPID PANEL LDL calc comment: REPOSSESSION AGENT Not Available [facility] ([facility]) [address] [facility], [place], [address], 03/07/2025 06:07:56 03/06/2003/06/2025 PSA TOTAL (REFL EX [...] of lonnie price se. Not Available [facility] ([facility]) [address] [place], [address], 03/07/2025 06:07:56 03/06/20 25 03/06/2025 PSA TOTAL (REFL EX TO FREE) reflex criteria Commen t The perce nt free PSA is perfo rmed on a refle x basis only when the total PSA is betwe en 4.0 and 10.0 ng/mL . Not Available [facility] ([facility]) [address], [place], [address], 03/07/2025 06:07:56 12/06/19 25 12/05/2024 XR, chest [...] acute cardio pulmon anuradha pathol ogy. WSN: [id number] Orderi ng Physic john: Praveen Winston Dictat ed By: Aga Grande MD Dictat ed Date/T monster: 4:23 pm Review ed By: Aga Grande MD Signed By: Aga Grande MD Signed Date/T monster: 4:23 pm Transc ribed By: ARABELLA Transc ribed Date/T monster: 4:20 pm Patien t Class: Outpat ient [email or web address] [facility] (Outpt Imaging) [address] , [place], [address], 12/05/2024 16:34:51 01/09/20 25 01/03/2025 CT, tempo ral bone, w/o contr ast No observ ation record ed. [facility] [place] [address], [place], [address], 01/09/2025 08:04:26 04/09/20 25 01/08/2025 CT, tempo ral bone, w/o contr ast No observ ation record ed. [facility] [place] [address], [place], [address], 04/09/2025 12:37:21 Result Notes Documentation Provider Name [...] without evidence for acute cardiopulmonary pathology. WSN: [id number] Ordering Physician: Praveen Morris Dictated By: Tonio Astudillo MD Dictated Date/Time: 12/05/24 4:23 pm Reviewed By: Tonio Astudillo MD Signed By: Tonio Astudillo MD Signed Date/Time: 12/05/24 4:23 pm Transcribed By: ARABELLA Transcribed Date/Time: 12/05/24 4:20 pm Patient Class: Outpatient Eleni Ryan LPN [facility] 12/05/2024 16:34:51 Problems Name Problem SNOMED Code Status Onset Date Resolution Date Notes Provider Name and Address Organization Details Recorded Time Impotenc e Active Followed by urology Not Available [facility] 4 18:31:33 Pain of wrist region 94720666 Active Not Available [facility] 4 18:31:33 Tinea pedis 1320223 Active Not Available [facility] 4 18:31:33 Low back strain 339111272 Active Not Available formerly [facility] 4 18:31:32 Sinusiti s 17826792 Completed 12/15/2015 Praveen Morris MD [address] [address], [place], [address] , [facility] 6 09:53:30 Chronic sinusiti s 08790361 Active Not Available formerly [facility] 4 18:31:33 Carpal tunnel syndrome 60733117 Active Not Available formerly [facility] 4 18:31:33 Cough 39619489 Completed 10/03/2017 Cheryl perales, [facility] 8 16:13:00 Acute sinusiti s 80034357 Completed 10/03/2017 Cheryl perales, [facility] 8 16:13:11 Knee pain Active [address] Harris Not Available formerly [facility] 4 18:31:32 General examinat ion of patient Completed 200802/04/2014 RECORDED 08/20/19 09 9:16AM BY PRAVEEN BETANCOURT MD, ANNOTATI ON/ADDEN DUM Praveen Morris MD [address], [place], [address] , [facility] 6 09:53:30 Pre-surg frieda evaluati on Completed 200802/04/2014 RECORDED 08/20/19 09 9:16AM BY PRAVEEN BETANCOURT MD, ANNOTATI ON/ADDEN DUM Praveen Morris MD [address], [place], [address] , [facility] 6 09:53:30 Adult health examinat ion Completed 200802/04/2014 RECORDED 08/20/19 09 9:16AM BY PRAVEEN BETANCOURT MD, ANNOTATI ON/ADDEN DUM Praveen Morris MD [address] [facility] [address], [place], [address] , [facility] 6 09:53:30 General examinat ion of patient Completed 200802/24/2014 RECORDED 08/20/19 09 9:16AM BY PRAVEEN BETANCOURT MD, ANNOTATI ON/ADDEN DUM Praveen Morris MD [address] [facility] [address], [place], [address] , [facility] 6 09:53:30 Pre-surg frieda evaluati on Completed 200802/24/2014 RECORDED 08/20/19 09 9:16AM BY PRAVEEN BETANCOURT MD, ANNOTATI ON/ADDEN DUM Praveen Morris MD [address] [facility] [address], [place], [address] , [facility] 6 09:53:30 Administ ration of bacteria l and viral vaccine Completed 201002/04/2014 RECORDED 10/07/19 11 9:56AM BY JIM DORANTES, OFFICE VISIT Praveen Morris MD [address] [facility] [address], [place], [address] , [facility] 6 09:53:30 Administ ration of bacteria l and viral vaccine Completed 201002/24/2014 RECORDED 10/07/19 11 9:56AM BY JIM DORANTES, OFFICE VISIT Praveen Morris MD [address] [facility] [address], [place], [address] , [facility] 6 09:53:30 Cough 46609537 Completed 201202/04/2014 RECORDED 07/30/19 13 3:48PM BY KAYLA MEEHAN MA, ANNOTATI ON/ADDEN DUM Cheryl perales, [facility] 8 16:13:00 Enthesop athy of hip region 08009425 Completed 201202/04/2014 RECORDED 07/30/19 13 3:48PM BY KAYLA MEEHAN MA, MARIAH ON/HELGA Morris MD [address], [place], [address] , [facility] 6 09:53:30 Enthesop athy of knee 36748581 Completed 201202/04/2014 RECORDED 07/30/19 13 3:48PM BY KAYLA MEEHAN MA, MARIAH ON/HELGA Morris MD [address], [place], [address] , [facility] 6 09:53:30 Malaise and fatigue 971662419 Completed 201202/04/2014 RECORDED 07/30/19 13 3:48PM BY KAYLA MEEHAN MA, MARIAH ON/HELGA Morris MD [address], [place], [address] , [facility] 6 09:53:30 Psychose xual dysfunct ion associat ed with inhibite d libido 778748388 Completed 201202/04/2014 RECORDED 07/30/19 13 3:48PM BY KAYLA MEEHAN MA, MARIAH ON/HELGA Morris MD [address], [place], [address] , [facility] 6 09:53:30 Eruption 096712323 Completed 201202/04/2014 RECORDED 07/30/19 13 3:48PM BY KAYLA MEEHAN MA, MARIAH ON/HELGA Morris MD [address], [place], [address] , [facility] 6 09:53:30 Screenin g for malignan t neoplasm of colon Completed 201202/04/2014 RECORDED 07/30/19 13 3:49PM BY KAYLA MEEHAN MA, ANNOTATI ON/ADDEN EDUARDO Morris MD [address], [place], [address] , [facility] 6 09:53:30 Cough 28438027 Completed 201202/24/2014 RECORDED 07/30/19 13 3:48PM BY KAYLA MEEHAN MA, ANNOTATI ON/ADDEN DUM [facility] 8 16:13:00 Enthesop athy of hip region 55643006 Completed 201202/24/2014 RECORDED 07/30/19 13 3:48PM BY KAYLA MEEHAN MA, ANNOTAL ON/ADDEN EDUARDO Morris MD [address] [facility] [address], [place], [address] , [facility] 6 09:53:30 Enthesop athy of knee 19657944 Completed 201202/24/2014 RECORDED 07/30/19 13 3:48PM BY KAYLA MEEHAN MA, MARIAH ON/ADDEN EDUARDO Morris MD [address] [facility] [address], [place], [address] , [facility] 6 09:53:30 Malaise and fatigue 501002818 Completed 201202/24/2014 RECORDED 07/30/19 13 3:48PM BY KAYLA MEEHAN MA, ANNOTAL ON/HELGA Morris MD [address] [facility] [address], [place], [address] , [facility] 6 09:53:30 Psychose xual dysfunct ion associat ed with inhibite d libido 279478379 Completed 201202/24/2014 RECORDED 07/30/19 13 3:48PM BY KAYLA MEEHAN MA, ANNOTATI ON/ADD EDUARDO Morris MD [address] [facility] [address], [place], [address] , [facility] 6 09:53:30 Eruption 655176613 Completed 201202/24/2014 RECORDED 07/30/19 13 3:48PM BY KAYLA MEEHAN MA, MARIAH ON/ EDUARDO Morris MD [address] [facility] [address], [place], [address] , [facility] 6 09:53:30 Screenin g for malignan t neoplasm of colon Completed 201202/24/2014 RECORDED 07/30/19 13 3:48PM BY KAYLA MEEHAN MA, FAUSTINOATI ON/MARGARITA Morris MD [address] [facility] [address], [place], [address] , [facility] 6 09:53:30 Acute sinusiti s 80903034 Completed 201202/04/2014 IMPRESSI ON: WE DISCUSSE D THAT HE LIKELY DOES NOT NEED PREDNISO NE YET AND ITS POTENTIA L ADVERSE EFFECTS. BUT HE IS ADMANENT THAT HE NEEDS THIS. HE UNDERSTA NDS RISKS. MARIN MED SINUS RINSE WITH STERILE WATER. CONTINUE NASONEX; RECORDED 09/18/19 13 9:21AM BY MARIAH ALEMAN ON/ADD EDUARDO perales, [facility] 8 16:13:11 Influenz a vaccine needed 14612660767 06 Completed 201202/04/2014 RECORDED 03/25/20 13 9:57AM BY ARTURO EASTMAN I, OFFICE VISIT Praveen Morris MD [address] [facility] [address], [place], [address] , [facility] 6 09:53:30 Laborato ry procedur e performe d 357336682 Completed 201202/04/2014 RECORDED 03/25/20 13 9:29AM BY ARTURO EASTMAN I, ANNOTATI ON/ADDEN EDUARDO Morris MD [address] [facility] [address], [place], [address] , [facility] 6 09:53:30 Influenz a vaccine needed 06399600425 06 Completed 201202/24/2014 RECORDED 03/25/20 13 9:57AM BY ARTURO EASTMAN I, OFFICE VISIT Praveen Morris MD [address] [facility] [address], [place], [address] , [facility] 6 09:53:30 Laborato ry procedur e performe d 141517976 Completed 201202/24/2014 RECORDED 03/25/20 13 9:29AM BY ARTURO EASTMAN I, ANNOTATI ON/ADDMARGARITA Morris MD [address] [facility] [address], [place], [address] , [facility] 6 09:53:30 Patient status finding 508874263 Completed 201305/20/2014 RECORDED 11/22/19 14 2:41PM BY ARTURO EASTMAN I, OFFICE VISIT Praveen Morris MD [address] [facility] [address], [place], [address] , [facility] 6 09:53:30 Essentia l hyperten stephy 49517432 Active 2013 Not Available [facility] 4 18:31:33 Hydrocel e Active 2013 Not Available [facility] 4 18:31:33 Nocturia 844965890 Active 2013 Not Available [facility] 4 18:31:32 Adult health examinat ion Completed 201305/20/2014 IMPRESSI ON: HE HAD BLOOD WORK DONE AT WORK A COUPLE OF MONTHS AGO AND IT WAS PLACED IN THE CHART.; RECORDED 11/22/19 14 2:41PM BY ARTURO EASTMAN I, OFFICE VISIT Praveen Morris MD [address], [place], [address] , [facility] 6 09:53:30 Olecrano n bursitis 791658057 Active 2013 Not Available [facility] 4 18:31:33 Acute sinusiti s 84738944 Completed 201305/20/2014 RECORDED 01/11/20 14 10:55AM BY RICHARD TRIPATHI MD, PHONE ENCOUNTE R Cheryl perales, [facility] 8 16:13:11 Low back pain 275096631 Active 2014 SI joint injectio n by [facility]. Also PT. 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 Injected at [facility] Not Available [facility] 4 18:31:32 Rivers' s esophagu s 287131479 Active [address] Hollins Mar 2024 Praveen Morris MD [address] [facility] [address], [place], [address] , [facility] 4 12:32:55 Supraven tricular tachycar katheryn 3477204 Active 2020 Followed by cardiolo gy Not Available [facility] 4 18:31:33 Osteoart hritis of knee 354527581 Active 2021 Left; will have surgery late 2021 Not Available [facility] 4 18:31:32 Hyperten stephy monitori ng status 081882998 Active 2021 Accuheal th- disenrol led Not Available [facility] 4 18:31:32 Thromboc ytopenic disorder 805189175 Active 2021 [facility] Available [facility] 4 18:31:32 Gastroes ophageal reflux disease 709373934 Active 2022 Not Available [facility] 4 18:31:32 COVID-19 931986205 Active 2022 Not Available [facility] 4 18:31:33 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 Gets regular injectio ns. Praveen Morris MD [address], [place], [address] , [facility] 5 17:35:45 Spinal stenosis of lumbar region 60177110 Active 2023 L5-S1; followed by Dr Hilario. Improved after radiofre quency Praveen Morris MD [address], [place], [address] , [facility] 4 20:02:14 Congesti ve heart failure 35750214 Active 2023 Followed by cardiolo gy. EF=30-40 % done 11/24/23. [place] to be secondar y to afib. Recovere d EF after pulsed field ablation January 2024 Praveen Morris MD [address], [place], [address] , [facility] 5 08:00:20 Paroxysm al atrial fibrilla tion 343497186 Active 2023 CHADSS 2 followed by cardiolo gy May be getting an LAAO (left atrial apendage occlusio n). Praveen Morris MD [address], [place], [address] , [facility] 4 10:15:57 Pain of right shoulder region Active 2024 Degenera tive rotator cuff disease. Praveen Morris MD [address], [place], [address] , [facility] 5 17:35:00 Sensorin eural hearing loss 01865855 Active 2024 Praveen Morris MD [address] [facility] [address], [place], [address] , [facility] 5 14:37:48 Flexor tenosyno vitis of finger 844985448 Active 2024 Followed by hand surgeon, Dr Raman. Right ring and small finger. Praveen Morris MD [address] [facility] [address], [place], [address] , [facility] 5 08:00:42 Problem Notes None recorded. Procedures Surgical History Date Name Laterality Status Provider Name and Address Organization Details Recorded Time 03/04 Advanced Care Planning completed Ledy Jean [facility] 5 13:25:58 04/04 Endoscopic us exam esoph completed Salina Lujan [facility] 4 08:12:51 05/29 radiofrequency ablation of medial branch of lumbar nerve using fluoroscopic guidance completed Salina Lujan [facility] 3 08:55:11 01/24 Advanced Care Planning completed Praveen Morris MD [address] [facility] [address], [place], [address] , [facility] 3 10:58:27 04/15 total replacement of left knee joint completed Rosmery Cesar [facility] 2 10:11:04 06/14 esophagogastroduodenoscopy completed Jaime Bustillo [facility] 1 10:50:14 04/16 Joint Replacement completed Daija Loya MA [facility] 2 11:15:05 04/09 Colonoscopy completed Tiffanie Levine [facility] 0 13:27:50 03/04 injection of knee completed Tiffanie Levine [facility] 0 09:53:06 01/05 Six-Item Cognitive Test completed Arturo Padilla [facility] 0 10:53:18 12/25 Mini-Cog Test completed Arturo Olivercriss [facility] 9 09:57:05 08/03 Carpal tunnel surgery completed Praveen Morris MD [address] [facility] [address], [place], [address] , [facility] 0 11:53:09 12/20 Mini-Cog Test completed Arturo Padilla [facility] 8 09:44:26 12/16 Fall Risk Assessment completed Arturodella Padilla [facility] 7 10:30:20 12/16 Mini-Cog Test completed Arturo Padilla [facility] 7 10:30:27 12/14 Fall Risk Assessment completed Arturodella Padilla [facility] 6 09:33:23 12/14 Mini-Cog Test completed Arturo Padilla [facility] 6 09:33:23 12/14 Advanced Care Planning completed Arturo Padilla [facility] 6 09:24:28 07/17 Knee Surgery completed Praveen Morris MD [address] [facility] [address], [place], [address] , [facility] 4 23:49:59 07/17 Gastrointestinal Surgery completed Praveen Morris MD [address], [place], [address] , [facility] 6 09:53:49 Knee Surgery completed Daija Loya MA [facility] 3 10:08:55 Imaging Results None recorded. Procedure Notes None recorded. Medical Equipment None Reported. Allergies Allergen ID Allergen Name Allergen Category Reaction Reaction Severity Criticality Documentation Date Start Date Code Code System Note Provider Name and Address Organization Details Recorded Time 29193 amlodipin e medicatio n lighthead edness Not available Not available 08/26/2024 46764 RxNorm Unique JIM Collins, [facility] 5 13:07:08 Medications Name Sig Start [...] No t Available Nasonex 50 mcg/actua tion Enders Enders 2 sprays every day by intranas al [...] Updated DateTime 5 179.07 cm 29.6 kg/m2 99216.8 1 g 83 /min 96 % 96 % 97.9 [degF] 151/82 mm[Hg] Joel avila MA [facility] 5 11:02:55 Date Recorded Body height Body mass index (BMI) Body weight Heart rate Oxygen saturation Oxygen saturation in Arterial blood by Pulse oximetry Body temperature Systolic And Diastolic Provider Name and Address Organization Details Last Updated DateTime 5 179.07 cm 29.9 kg/m2 22430.0 9 g 80 /min 97 % 97 % 98.2 [degF] 139/82 mm[Hg] Eleni Ryan LPN [facility] 5 09:43:32 Date Recorded Body height Body mass index (BMI) Body weight Heart rate Oxygen saturation Oxygen saturation in Arterial blood by Pulse oximetry Body temperature Systolic And Diastolic Provider Name and Address Organization Details Last Updated DateTime 5 179.07 cm 30.7 kg/m2 47898.5 4 g 71 /min 95 % 95 % 98 [degF] 136/69 mm[Hg] Urmila Bo MA [facility] 5 14:02:14 Date Recorded Body height Body mass index (BMI) Body weight Heart rate Oxygen saturation Oxygen saturation in Arterial blood by Pulse oximetry Body temperature Systolic And Diastolic Provider Name and Address Organization Details Last Updated DateTime 4 179.07 cm 29.7 kg/m2 11924.4 g 76 /min 98 % 98 % 97.3 [degF] 152/91 mm[Hg] Urmila Bo MA [facility] 4 11:37:47 Social History Question Answer Notes LastModified by Organizat ion Details LastModified Time Tobacco Smoking Status Never Smoker Not Available [facility] 05/19/2020 03:36:37 Do You Have An Advance Directive? Yes [facility] [email or web address] Information not available 01/10/2022 Is Blood Transfusion Acceptable In An Emergency? Yes [id number] Information not available 05/19/2020 What Is Your Level Of Caffeine Consumption? Moderate 2 Cups Of Coffee Daily [id number] Information not available 05/19/2020 How Much Tobacco Do You Chew? None [id number] Information not available 05/19/2020 What Type Of Diet Are You Following? REGULAR Salads [id number] Information not available 05/19/2020 Which Illicit Or Recreational Drugs Have You Used? None [id number] Information not available 05/19/2020 Live Alone Or [...] Or Greater Than 100 Degrees Fahrenheit? No Information not available 04/14/2020 Are You Or Anyone In Your Household A Health Care Provider Or Emergency Responder? No [email or web address] Information not available 04/14/2020 To The Best Of Your Knowledge Have You Been In Close Proximity To Any Individual Who Tested Positive For COVID-19? No [email or web address] Information not available 04/14/2020 Have You Recently Traveled To A COVID-19 High Risk Area Or Gathering In The Last 10 Days? No [email or web address] Information not available 08/17/2020 What Was The Date Of Your Most Recent Tobacco Screening? 03/04/2025 [email or web address] Information not available 03/04/2025 How Many Children Do You Have? 2 Sons; One In [place]; 4 GC's 2 Girls And 2 Boys [email or web address] Information not available 01/10/2022 Do You Use Protection During Sex? Always [id number] Information not available 05/19/2020 Do You Use Your Seat Belt Or Car Seat Routinely? Yes Information not available 01/10/2022 Seat Belts Used Routinely Yes Information not available 01/10/2022 Are You Sexually Active? Yes [id number] Information not available 05/19/2020 Smoke Alarm In Home Yes Information not available 01/10/2022 Do You Have Smoke And Carbon Monoxide Detectors In Your Home? Yes Information not available 01/10/2022 At What Age Did You Start Smoking Tobacco? 1 [id number] Information not available 05/19/2020 Are You Passively Exposed To Smoke? No Information not available 06/15/2016 How Much Tobacco Do You Smoke? No [id number] Information not available 05/19/2020 Do You Use Sunscreen Routinely? Yes [id number] Information not available 05/19/2020 How Many Years Have You Smoked Tobacco? 0 [id number] Information not available 05/19/2020 Sex: Unknown Functional Status Question Answer Note LastModified by Organizat ion Details LastModified Time Do you use any illicit or recreational drugs? No Information not available 01/10/2022 Do you or have you ever used any other forms of tobacco or nicotine? No Information not available 01/10/2022 What is your level of alcohol consumption? Occasional [id number] Information not available 05/19/2020 Do you or have you ever used smokeless tobacco? Never used smokeless tobacco [id number] Information not available 05/19/2020 Are you currently employed? Yes [id number] Information not available 05/19/2020 Are you able to walk independently without assistance or assistive devices? [email or web address] Information not available 01/10/2022 Are you able to care for yourself independently? 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 Never used electronic cigarettes Information not available 01/10/2022 What is your exercise level? Moderate daily; yardwork, housework, gym, and walking [id number] Information not available 05/19/2020 Mental Status None [...] 13:39:27 Notes:1 sister Medical History Condition Response Hospitalizations Y Arthritis Y Hypertension Y Kidney Stones Y Immunizations Vaccine Type Date Status Note Provider Nam e and Address Organization Details Recorded Time Pneumococcal conjugate PCV 13 7 completed Not Available formerly [facility] 08/23/2023 18:31:33 zoster live 7 completed Not Available formerly [facility] 08/23/2023 18:31:33 Tdap 7 completed Not Available formerly [facility] 08/23/2023 18:31:33 Influenza, high-dose, trivalent, PF 8 completed Not Available formerly [facility] 08/23/2023 18:31:33 Influenza, high-dose, quadrivalent, PF 0 completed Eleni Lie, [employer] null, [facility] 10/12/2023 12:58:26 COVID-19, mRNA, LNP-S, PF, 100 mcg/0.5mL dose or 50 mcg/0.25mL dose 1 completed Not Available formerly [facility] 08/23/2023 18:31:33 COVID-19, mRNA, LNP-S, PF, 100 mcg/0.5mL dose or 50 mcg/0.25mL dose 1 completed Not Available formerly [facility] 08/23/2023 18:31:33 zoster recombinant 1 completed Eleni Lie, [employer] null, [facility] 10/12/2023 12:58:26 Influenza, adjuvanted, quadrivalent, PF 1 completed Eleni Lie, [employer] null, [facility] 10/12/2023 12:58:26 COVID-19, mRNA, LNP-S, PF, 100 mcg/0.5mL dose or 50 mcg/0.25mL dose 1 completed Not Available formerly [facility] 08/23/2023 18:31:33 Influenza, split virus, quadrivalent, preservative [...] 50 mcg/0.5 mL 3 completed Not Available formerly [facility] 08/23/2023 18:31:33 Influenza, adjuvanted, quadrivalent, PF 0 completed Eleni Ryan LPN null, [facility] 10/12/2023 12:58:26 Influenza, high-dose, trivalent, PF 6 completed Eleni Ryan [employer] null, [facility] 10/12/2023 12:58:26 Influenza, high-dose, trivalent, PF 5 completed Salina perales, [facility] 08/12/2024 12:54:24 Influenza, split virus, trivalent, PF 4 completed Not Available formerly [facility] 08/03/2019 02:21:57 Influenza, split virus, trivalent, preservative 6 completed Not Available formerly [facility] 08/23/2023 18:31:34 Influenza, split virus, trivalent, preservative 7 completed Not Available formerly [facility] 08/23/2023 18:31:34 Influenza, split virus, trivalent, preservative 8 completed Not Available formerly [facility] 08/23/2023 18:31:34 Tdap 1 completed Not Available formerly [facility] 08/23/2023 18:31:33 Influenza, split virus, trivalent, preservative 1 completed Not Available formerly [facility] 08/23/2023 18:31:33 Influenza, split virus, trivalent, preservative 2 completed Not Available formerly [facility] 08/23/2023 18:31:33 influenza, seasonal, intradermal, preservative free 3 completed Not Available formerly [facility] 08/23/2023 18:31:34 Past Encounters Encounter ID Performer Location Encounter Start Date Encounter Closed Date Diagnosis/Indication Diagnosis SNOMED-CT Code Diagnosis ICD10 Code Diagnosis IMO Codes Diagnosis Note [id number] [facility] [address] [facility],[address] [place] [address] 04/18/2007 00:00:00 [id number] [facility] [address] [facility],[address] [place] [address] 04/18/2007 00:00:00 [id number] [facility] [address] [facility],[address] [place] [address] 04/18/2007 00:00:00 [id number] [facility] [address] [facility],[address] [place] [address] 05/29/2007 00:00:00 [id number] [facility]ce [address] [facility],[address] [place] [address] 08/20/2008 00:00:00 [id number] [facility] [address] [place] [address] 08/20/2008 00:00:00 [id number] [facility] [address] [place] [address] 08/20/2008 00:00:00 [id number] [facility] [address] [place] [address] 08/26/2009 00:00:00 [id number] [facility] [address] [place] [address] 06/12/2010 00:00:00 [id number] [facility] [address] [place] [address] 06/12/2010 00:00:00 [id number] [facility] [address] [place] [address] 08/26/2010 00:00:00 [id number] [facility] [address] [place] [address] 08/26/2010 00:00:00 [id number] [facility] [address] [place] [address] 08/26/2010 00:00:00 [id number] [facility] [address] [place] [address] 10/06/2010 00:00:00 [id number] [facility] [address] [place] [address] 12/06/2010 00:00:00 [id number] [facility] [address] [place] [address] 12/06/2010 00:00:00 [id number] [facility] [address] [place] [address] 01/27/2011 00:00:00 [id number] [facility] [address] [place] [address] 01/27/2011 00:00:00 [id number] [facility] [address] [place] [address] 03/22/2011 00:00:00 [id number] [facility] [address] [place] [address] 03/22/2011 00:00:00 [id number] [facility] [address] [place] [address] 05/09/2011 00:00:00 [id number] auto[facility] erce [address] [place] [address] 05/09/2011 00:00:00 [id number] [facility] [address] [place] [address] 09/13/2011 00:00:00 [id number] [facility] erce [address] [place] [address] 09/13/2011 00:00:00 [id number] [facility] [address] [place] [address] 07/30/2012 00:00:00 [id number] [facility] [address] [place] [address] 2 07/30/2012 00:00:00 [id number] auto[facility]ce [address] [place] [address] 07/30/2012 00:00:00 [id number] [facility]ce [address] [place] [address] 07/30/2012 00:00:00 [id number] auto[facility] erce [address] [place] [address] 09/17/2012 00:00:00 [id number] [facility] [address] [place] [address] 09/17/2012 00:00:00 [id number] [facility] [address] [place] [address] 09/17/2012 00:00:00 [id number] auto[facility]Comm erce [address] [facility],[address] [place] [address] 03/25/2013 00:00:00 [id number] auto[facility]Comm erce [address] [facility],[address] [place] [address] 03/25/2013 00:00:00 [id number] [facility] [address] [facility],[address] [place] [address] 11/21/2013 00:00:00 [id number] [facility] erce [address] [facility],[address] [place] [address] 11/21/2013 00:00:00 [id number] [facility] [address] [facility],[address] [place] [address] 11/21/2013 00:00:00 [id number] Praveen Morris MD Main Office [address] [facility] 207 [place] [address] 05/20/2014 09:07:23 05/20/2014 09:59:30 Essential hypertension 13239793 Needs infl uenza immunization 550546506 Impotence 950872739 Hydrocele 08822721 Low back pain 321661694 Pain of wrist region 03492126 Knee pain 18908707 Tinea pedis 3302979 [id number] Richard Tripathi MD Main Office [address] [address] [place] [address] 08/28/2014 12:59:40 08/28/2014 13:33:22 Low back strain 147826971 [id number] IRINEO Ruiz Main Office [address] [address] [place] [address] 10/03/2014 13:25:55 10/03/2014 14:05:11 Acute sinusitis 29720705 he is likely fine on current augmentin dose but since pt wants to do more instead of changing abx as requested we can increase his augmentin dose. it is possible that he has a partially resistant strep pneumonia that will get full coverage at higher dose. also afrin max 4 days. continue sinus rinse. Cough 93369572 Essential hypertension 45765535 cannot use sudafed with the htn [id number] Praveen Morris MD Main Office [address] [address] [place] [address] 12/09/2014 10:06:49 12/09/2014 11:25:43 Tinea pedis 9152060 Essential hypertension 73989651 Adult [facility] th examination 815885638 [id number] Praveen Morris MD Main Office [address] [place] [address] [place] [address] 06/15/2015 09:07:59 06/15/2015 09:50:58 Essential hypertension 09567083 I10 white-coat HTN; usually running below 140 systolic at home. Needs infl uenza immunization 778365373 Z23 Administra tion of pneumococcal vaccine 22709594 Z23 Varicella vaccination 68 392734 Z23 Carpal devin dylan syndrome 03605431 G56.00 he feels that he has carpal tunnel in both hands since doing work on his house/chris o. He will try exercises and rest and if it persists he will call for an appointmen t with Dr Raman. [id number] Praveen Morris MD Main Office [address] [place] [address] [place] [address] 10/22/2015 12:46:03 10/22/2015 13:45:12 Cough 63804093 R05 post-viral cough; no role for abx. He will call next week after completing the medrol dose-pack. [id number] Praveen Morris MD Main Office [address] [address] [place] [address] 12/15/2015 09:16:27 12/15/2015 10:22:56 Adult health examination 691796998 Z00.00 Essential hypertension 03555065 I10 white-coat HTN; usually running below 140 systolic at home. Varicella vaccination 68 751844 Z23 [id number] Praveen Morris MD Main Office [address] [address] [place] [address] 06/15/2016 09:32:45 06/15/2016 10:17:48 Essential hypertension 09290669 I10 White coat HTN. We will not make any changes Influenza vaccine needed 6791752568 106 Z23 Hyperglycemia 71683291 R 73.9 Sugars often running high. He has a fhx of diabetes on al mothers side. He will try to lose weight and increase his exercise. Varicella vaccination 68 918515 Z23 Skin lesion 11751320 L98 .9 Had 2 lesions treated on his scalp at [facility]. Knee pain 46298777 M25.5 61 Will be scheduling surgery with [facility] or at [facility] for knee replacemen t. [id number] Praveen Morris MD Main Office [address] [facility] [address] [place] [address] 12/16/2016 10:17:08 12/16/2016 11:24:11 Adult health examination 217237887 Z00.00 He is due for a prevnar and shingles vaccine and was given scripts to get these done at his pharmacy. He is UTD with colonoscop y. Varicella vaccination 68 179500 Z23 Nocturia 323043543 R35.1 Probable BPH with obstructio n interferin g with his sleep. He will consider starting meds. Essential hypertension 42274765 I10 Much better today; continue current mgmt. Hyperglycemia 61166755 R 73.9 Sugars often running high. He has a fhx of diabetes on al mothers side. He will try to lose weight and increase his exercise. Administra tion of pneumococcal vaccine 36460230 Z23 [id number] Praveen Morris MD Main Office [address] [address] 06/20/2017 09:12:18 06/20/2017 09:52:48 Essential hypertension 92615843 I10 Much better today; continue current mgmt. Nocturia 436905798 R35.1 Knee pain 77420153 M25.5 61 Still not ready for surgical replacemen t. Followed by [facility] and receiving cortisone every 6 months. Carpal devin dylan syndrome 35617335 G56.[address] Raman. Left hand is better and right hand is still a problem. [id number] Praveen Morris MD Main Office [address] [facility] 207 [place] [address] 10/03/2017 16:08:00 10/03/2017 16:53:31 Acute sinusitis 34805204 J01.90 He may get 2 episodes a year despite using a nasal and an anti-hista mine [id number] Praveen Morris MD Main Office [address] [place] [address] 12/20/2017 09:23:01 12/20/2017 10:20:58 Adult health examination 070553233 Z00.00 He was advised to get the new shingles vaccine and he is UTD with other vaccines. He is UTD with colonoscop y and due again in 2020. Nocturia 888184838 R35.1 He will try taking his flomax qod Low back pain 520119666 M54.5 Has an appointmen t with [facility] [id number] Praveen Morris MD Main Office [address] [place] [address] 06/26/2018 09:23:49 06/26/2018 10:01:26 Essential hypertension 37004372 I10 Much better today; continue current mgmt. We will decrease his dose because of lightheade dness and he will follow his BP Low back pain 557625887 M54.5 Has an appointmen t with [facility] Carpal devin dylan syndrome 16937878 G56.[address] Raman. Scheduled for surgery 07/20/18 [id number] Praveen Morris MD Main Office [address] [address] 12/25/2018 09:42:32 12/25/2018 10:30:24 Adult health examination 466207333 Z00.00 He was advised to get the new shingles vaccine second dose and he is UTD with other vaccines. He is UTD with colonoscop y and due again in 2020. Essential hypertension 54626862 I10 BP high today but normal at home. He will follow and call if it is consistent ly high. Benign pro static hyperplasia with outflow obstruction 741526056 N40.1 on meds Hyperlipidemia 58164859 E78.5 [id number] Praveen Morris MD Main Office [address] [place] [address] 06/26/2019 16:25:56 06/26/2019 17:11:26 Essential hypertension 29182603 I10 BP high today but normal at home. He will follow and call if it is consistent ly high. Acute sinusitis 36329234 J01.90 He may get 2 episodes a year despite using a nasal and an anti-hista mine Osteoarthritis 910695511 M19.90 [id number] Praveen Morris MD [facility] [address] [facility] 207 [facility] [place] [address] 01/06/2020 07:15:28 01/06/2020 12:26:08 Adult health examination 461505006 Z00.00 He was advised to get the new shingles vaccine second dose and he is UTD with other vaccines. He is due for a colonoscop y this year and will schedule his own appointmen t. Essential hypertension 12316407 I10 Continue current mgmt. Benign pro static hyperplasia with outflow obstruction 288971705 N40.1 on meds; will check PSA. Knee pain 17299258 M25.5 61 Followed by [facility] and scheduled for a knee replacemen t Apr [address] Mccormack. Low back pain 057962261 M54.5 Has an appointmen t with [facility]. Injections help. [id number] Praveen Morris MD Main Office [address] [facility] 207 [place] [address] 02/24/2020 10:23:46 02/26/2020 07:47:37 [id number] Richard Tripathi MD Main Office [address] [facility] 207 [place] [address] 04/17/2020 10:29:37 04/17/2020 11:54:13 Pre-surgery evaluation 215144153 Z01.818 Pre-op clearance is pending improvemen t in BP control. Pt. has past h/o labile HTN and with some low BP and orthostasi s. So, we will increase very gradually to amlodipine at 7.5 mg and continue daily testing. F/u by PCP in 3-4 days with his home BP readings. Essential hypertension 32070782 I10 continue losartan , increase amlodipine to 7.5 mg. He appears very anxious during the visit. Ventricula r premature beats 75187429 I49.3 no change from prior EKG. [id number] Praveen Morris MD [place] [address] [place] [address] [place] [address] 04/20/2020 08:38:47 04/21/2020 08:27:04 Essential hypertension 89039106 I10 Continue current mgmt. He will follow his BP and if it goes too low or he develops SE's he will decrease the dose and call us. [id number] Praveen Morris MD Main Office [address] [address] [place] [address] 07/07/2020 11:38:47 07/07/2020 12:12:16 Essential hypertension 11090086 I10 Continue current mgmt. He will follow his BP at home. Gastroesop hageal reflux disease without esophagitis 555347845 K21.9 Carpal devin dylan syndrome 18787302 G56.[address] Raman and had surgery recently on the left. [id number] Praveen Morris MD [facility] [address] [address] [place] [address] 08/17/2020 13:02:01 08/18/2020 08:24:28 Essential hypertension 48645987 I10 Continue current mgmt. He will follow his BP at home. He restarted amlodipine but at a low dose. he will increase it if his BP goes up. Rivers's esophagus 3029 [address] Hollins and had an EGD done last year showing Rivers's w/o dysplasia. [id number] Praveen Morris MD Main Office [address] [address] [place] [address] 01/06/2021 10:17:11 01/06/2021 11:27:38 Adult health examination 422293259 Z00.00 He is UTD with immunizati ons including the COVID vaccine. He states that he had a colonoscop y done last year by Dr Hollins but we do not have a copy of it. Essential hypertension 89057608 I10 Continue current mgmt. BP under good control. Benign pro static hyperplasia with outflow obstruction 466630874 N40.1 on meds; will check PSA. Low back pain 087761755 M54.5 Gets injections from [facility] which give some help but this has been a limiting pain for him. [id number] Praveen Morris MD Main Office [address] [address] [place] [address] 07/05/2021 13:47:23 07/05/2021 14:46:23 Essential hypertension 62786561 I10 Continue current mgmt. BP under good control. Benign pro static hyperplasia with outflow obstruction 652303672 N40.1 He is not currently on meds. He will try saw palmetto for a couple of months and if no help we will discuss starting prescripti on meds. Supraventr icular tachycardia 1612681 I47.1 Followed by cardiology and w/o symptoms. [id number] Praveen Morris MD Main Office [address] [address] [place] [address] 01/10/2022 10:57:22 01/10/2022 11:59:33 Adult health examination 904057587 Z00.00 He is UTD with immunizati ons including the COVID vaccine. He states that he had a colonoscop y done last year by Dr Hollins but we do not have a copy of it. Supraventr icular tachycardia 5698070 I47.1 Followed by cardiology and w/o symptoms. Benign pro static hyperplasia with outflow obstruction 800197527 N40.1 He is not currently on meds. He will try saw palmetto for a couple of months and if no help we will discuss starting prescripti on meds. Essential hypertension 51475068 I10 Continue current mgmt. BP under good control. [id number] Praveen Morris MD Main Office [address] [address] [place] [address] 04/18/2022 09:49:11 04/18/2022 13:33:36 [id number] Praveen Morris MD Main Office [address] [address] [place] [address] 06/16/2022 11:19:56 06/16/2022 12:04:20 Localized eruption of skin 408256623 R21 Possible Lyme disease vs tinea corporis. Will get labs but hold off on abx. Fatigue 61190699 R53.83 Possibly from deconditio carley secondary to recent knee replacemen t surgery. [id number] Praveen Morris MD Main Office [address] [address] [place] [address] 07/26/2022 11:23:43 07/26/2022 12:01:25 Essential hypertension 08200054 I10 Continue current mgmt. BP under good control. Pain of le ft knee joint 3401521195 01409 M25.562 s/p surgery and PT 3-4 months ago but still with pain and swelling. He is starting with a certified personal finance counselor tomorrow who has been in touch with his PT. Low back pain 391240252 M54.50 He had a nerve block done yesterday by [facility] and has a f/u with them in a couple of weeks. Gastroesop hageal reflux disease 434999806 K21.9 Has Rivers's esophagus and on omeprazole . [id number] Jordan Aburto MD [address] [place] [address] 08/23/2022 12:37:52 08/23/2022 14:09:09 Counseling 005995839 Z71.9 Health advice, education or counseling done for COVID 19 Dyspnea 030377726 R06.00 COVID-19 795615485 U07.1 cont otc meds (prn tyl, robitussin ) as dir, cont self-isola tion, cont push fluid intake, rest, consider extra vit D for a few days to help boost immune system advised pt only to go to ER if significan t sob where may need to be admitted, o/w avoid going to hospital if at all possible [id number] Praveen Morris MD [place] [address] [place] [address] 09/01/2022 13:27:44 09/01/2022 15:17:34 Acute sinusitis 80273685 J01.90 He gets frequent sinus infections . He understand s that this may be COVID rebound but I will prescribe a zpack since he is going away which may or may not help. He will continue with a nasal spray and anti-hista mine. [id number] Praveen Morris MD Main Office [address] [place] [place] [address] 01/24/2023 09:58:42 01/24/2023 10:51:21 Adult health examination 972788730 Z00.00 He is UTD with immunizati ons including the COVID vaccine. He had a colonoscop y in [address] Hollins and is due again in 2030. Supraventr icular tachycardia 6187650 I47.1 Followed by cardiology and w/o symptoms. Essential hypertension 36506494 I10 Continue current mgmt. BP under good control. Benign pro static hyperplasia with outflow obstruction 828689503 N40.1 He is taking both saw palmetto and tamsulosin and his symptoms have improved. Rivers's esophagus 3029 [address] Hollins and had an EGD done last year showing Rivers's w/o dysplasia. Gastroesop hageal reflux disease 871150728 K21.9 Has Rivers's esophagus and on omeprazole . Advance care planning 71 4985140 Z71.89 Discussed HCP and MOLST and forms given. [id number] Jordan Aburto MD [facility] 36[address] [facility] 207 [facility] [place] [address] 07/28/2023 08:42:17 07/28/2023 10:03:45 Acute sinusitis 85119568 J01.90 Second sickening as well as duration and quality of symptoms raises concern for secondary bacterial process. Will cover with doxy and consider adding course of steroid if not improving over the next 3-5 days. Advised of common/ser ious potential side effects and to call with any problems. [id number] Praveen Morris MD Main Office [address] [facility] 207 [facility] [place] [address] 08/10/2023 11:04:32 08/10/2023 12:08:38 Essential hypertension 39827037 I10 Continue current mgmt. BP under good control. Low back pain 564848653 M54.50 He had a nerve block done by [facility] which helped but has returned. He is scheduled for an MRI next week and possibly a second nerve block. 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 [id number] Praveen Morris MD Main Office [address] [facility] 207 [place] [address] 10/06/2023 08:25:29 10/06/2023 09:03:46 [id number] Praveen Morris MD [facility] 3640 [facility] 207 [place] [address] 10/12/2023 12:31:33 10/12/2023 16:24:33 Atrial fibrillation 73775722 I48.91 He is asymptomat ic and has a cardiology appointmen t next week. Duodenal perforation 270 045049 K26.5 This has improved after bowel rest. Back to a normal diet. His pain is minimal and helped with tylenol. Transition of care 91031 02408 105 Z75.8 [id number] Praveen Morris MD Main Office [address] [address] [place] [address] 11/27/2023 09:59:54 11/27/2023 13:57:13 [id number] Praveen Morris MD Main Office [address] [facility] 207 [place] [address] 02/08/2024 13:07:07 02/08/2024 13:59:06 Adult health examination 485804119 Z00.00 He is UTD with immunizati ons including the COVID vaccine. He had a colonoscop y in [address] Hollins and is due again in 2030. Essential hypertension 34110157 I10 Continue current mgmt. BP under good control. Nocturia 903485375 R35.1 Helped by tamsulosin . Low back pain 991097715 M54.50 He had a nerve block done by [facility] which helped but has returned. He is scheduled for an MRI next week and possibly a second nerve block. Arthritis of joint of right shoulder region 3700607504 54278 M13.811 He is followed by Dr Harris and is holding off on getting a shoulder replacemen t surgery which he is sure is in his future. Benign pro static hyperplasia with outflow obstruction 226091677 N40.1 He is taking both saw palmetto and tamsulosin and his symptoms have improved. Congestive heart failure 44797326 I50.9 Paroxysmal atrial fibrillation 629002603 I48.0 Followed by cardiology . Scheduled for an ablation tomorrow. [id number] Praveen Morris MD Main Office [address] [facility] 207 [place] [address] 03/05/2024 10:46:02 03/05/2024 11:16:57 Cough 66529930 R05.9 Possible post-viral cough vs PND from allergies. He will use the flonase regularly. He does not need another course of abx since he has been on 2 courses over the last 4 weeks. [id number] Jordan [facility] [address] [address] [place] [address] 03/12/2024 14:55:47 03/12/2024 16:11:47 COVID-19 658442019 U07.1 cont otc meds (prn tyl, robitussin [...] paxlovidso will rx c molnupirav ir Counseling 535337293 Z71 .9 Health advice, education or counseling done for COVID 19 Dyspnea 566064224 R06.00 [id number] Praveen Morris MD Main Office [address] [address] [place] [address] 05/14/2024 11:32:01 05/14/2024 12:07:01 Cough 29849477 R05.9 Possible post-viral cough vs PND from allergies. He will use the flonase regularly. He does not need a course of abx. [id number] Praveen Morris MD Main Office [address] [facility] [address] [place] [address] 08/16/2024 10:38:46 08/16/2024 11:35:37 Essential hypertension 68905333 I10 Continue current mgmt. BP under good control. Congestive heart failure 86975965 I50.9 Followed by cardiology Paroxysmal atrial fibrillation 126330367 I48.0 Followed by cardiology . Had ablation January 2024. Spinal simeon nosis of lumbar region 57333980 M48.[address] injection [address] Klein at [facility] June. Nocturia 628438838 R35.1 Helped by tamsulosin . [id number] Praveen Morris MD Main Office [address] [facility] [address] [facility] [place] [address] 12/05/2024 09:29:45 12/05/2024 10:18:01 Persistent cough 069881255 R05.3 091773 Possibly post-viral . Doubt bacterial infection but will get a CXR to r/o infiltrate . Lifetime non smoker so COPD is unlikely.. Alleries may also be playing a role. If persists will do a pulmonary referral. [id number] Praveen Morris MD Main Office [address] [facility] [address] [place] [address] 03/04/2025 13:40:09 03/04/2025 14:45:47 Adult health examination 791558125 Z00.00 He is UTD with immunizati ons including the COVID vaccine; last booster was April 2023.He had a colonoscop y in [address] Hollins and is due again in 2029.UTD w/flu, tetanus, pneumonia and shingles vaccines. Benign pro static hyperplasia with outflow obstruction 107795018 N40.1 He is taking both saw palmetto and tamsulosin and his symptoms have improved. Paroxysmal atrial fibrillation 387129782 I48.0 Followed by cardiology . Had ablation January 2024 and is scheduled for an additional ablation next month (Mar 2025). Essential hypertension [id number] I10 Continue current mgmt. BP under good control. Advance care planning [id number] Z71.89 [id number] Discussed HCP and POLST and forms given. Congestive heart failure [id number] I50.9 Followed by cardiology Rivers's esophagus [id number] Hollins and had an EGD done last year (2023) showing Rivers's w/o dysplasia. Low back pain [id number] M54.50 He had a nerve block done by [facility] which helped but has returned. He is scheduled for a minimally invasive procedure at [facility] April 2025. Spinal simeon nosis of lumbar region [id number] M48.[address] Klein at [facility] June. Chronic sinusitis [id number] J32.9 Due for a eustachian tube dilation tomorrow at [facility] Related Observation LastModified by Organization Detai ls LastModified Time None Recorded Concern Status LastModified by Organization Details LastModified Time None Recorded Advance Directives Directive Y: HCP Payers Insurance Date Sequence Insurance Name Policy Number Policy Corado Covered Member ID Corado Member ID Guarantor Name 03/03/2025 1 [place]: [employer] Zia Killian Jr [id number] Zia Killian 07/28/2023 1 [facility] [email or web address] PL[employer] (HMO) [id number] Zia Killian [id number] Zia Killian 03/18/2025 2 [facility] HEALTH PLAN - PREFERRED (MEDICARE SUPPLEMENT) [id number] Zia Killian Jr [id number] Zia Killian Notes Date Note Type Note [...] but has chest congestion Eben Verdugo PA-C [address] [address], [place], [address], [facility] 03/12/2024 16:06:21 05/14/20 24 text/htm l ROS [...] in his ears. Praveen Morris MD [address] [address], [place], [address], [facility] 05/14/2024 12:33:07 08/16/19 25 text/htm l Hypertension [...] exacerbations. Had a nerve block done at [facility] with some help which has since worn off. He recently had a steroid injection done 6 weeks ago at [facility] and this has helped with his pain. Praveen Morris MD [address] [address], [place], [address], [facility] 08/16/2024 18:01:44 12/06/19 25 text/htm l CoughReported [...] in the HPI Praveen Morris MD [address] [address], [place], [address], [facility] 12/05/2024 10:57:05 03/04/20 25 text/htm l Medicare [...] while walking. Saw pulmonary Dr Segundo at [facility]. SOB and cough and PFT's ordered. [...] CT done first. Seeing Dr Mccormack at [facility] for his right knee last surgery done in 2019. He felt a pop and an xray was okay. He may need repeat surgery. Ledy perales [facility] 03/18/2025 13:26:28
--- OUTSIDE RECORDS SUMMARY | 2025-05-21 13:03 | XMS_ITS | Encounter Summary ---
Author Organization [facility] Address [address] [place] [address] Care Team Providers Care Command And Control Systems Integrator Name Role Phone Justin Morris MD Primary Care Provider [phone] Diogenes Cai MD Unavailable [phone] Encounter Details Date Type Department Care Team (Late st Contact Info) Description 07/28/2024 Scanned Document [facility] [address] [phone] Jevon Vo MD [address] [place] [address] [place] [phone] Social History Tobacco Use Types Packs/Day [...] on filedocumented in this encounter Care Teams Command And Control Systems Integrator Relationship Specialty Start Date End Date Justin Morris MD [address] [facility] [address] [place] [address] PCP - General Internal Medicine 06/25/24 [place] [address] [place] [id number] Internal Medicine 02/21/25 documented as of this encounter
--- OUTSIDE RECORDS SUMMARY | 2025-05-21 13:03 | XMS_ITS | Clinical Summary ---
Author Organization [place] [address] [place] [address] [address] [place] [address] Care Team Providers Care Blast Furnace Keeper Name Role Phone Unavailable Primary Care Provider [...] patient's age to complete this topic Insurance [facility] MEDICARE COMMERCIAL GENERIC [facility] MEDICARE COMMERCIAL GENERIC [facility] MEDICARE COMMERCIAL GENERIC
== END 2025-05-21 11:20 | disposition home or self-care (01) ==
LOC: HO.HPSW 10:59
PROVIDERS: PCP Internal Medicine; Visit Provider Nurse Practitioner Family
DX: J45.909 Unspecified asthma, uncomplicated (principal); R05.3 Chronic cough; J30.9 Allergic rhinitis, unspecified
CPT/HCPCS: 99214

== ENCOUNTER → 2025-05-21 10:59 | Outpatient (BNVA) | payer MEDICARE, SELFPAY | PROVIDERS: PCP Internal Medicine; Visit Provider Nurse Practitioner Family | DX: R05.3 Chronic cough (principal); J30.9 Allergic rhinitis, unspecified; Z79.01 Long term (current) use of anticoagulants; I48.91 Unspecified atrial fibrillation; K21.9 Gastro-esophageal reflux disease without esophagitis | CPT/HCPCS: 99212 ==